=== PATIENT | male | born 1985 | race African-American/Black ===

== ENCOUNTER 2018-04-23 00:18 | Emergency (ER) | payer SELFPAY ==
--- NOTE | 2018-04-23 03:48 | ER ---
Nurse's Notes [facility] Name: Nicole Karimi Age: 32 yrs Sex: Male : 1985 Arrival Date: 04/23/2018 Time: 00:22 Bed 5 Private MD: Diagnosis: Acute abdominal pain;tinea pedis Presentation: 04/23 00:27 Presenting complaint: Patient states: Pt and boyfriend were playing around and now tl3 there is a vibrator in side rectum for about a week, abdominal pain started yesterday, possible fungal issue to left foot between toes. Transition of care: patient was not received from another setting of care. Onset of symptoms was April 14, 2018. Risk Assessment: Do you want to hurt yourself or someone else? Patient reports no desire to harm self or others. Initial Sepsis Screen: Does the patient meet any 2 criteria? No. Patient's initial sepsis screen is negative. Does the patient have a suspected source of infection? No. Patient's initial sepsis screen is negative. Care prior to arrival: None. 00:27 Method Of Arrival: Ambulatory tl3 00:27 Acuity: HATTIE 3 tl3 Triage Assessment: 00:27 General: Appears uncomfortable, Behavior is calm, cooperative, appropriate for age. tl3 Pain: Complains of pain in left foot, abdominal Pain currently is 10 out of 10 on a pain scale. Historical: - Allergies: 00:23 unknown antibiotic; tl3 - Home Meds: 00:34 None [Active]; tl3 - PMHx: 00:23 HIV; syphilis; tl3 - PSHx: 00:23 knee surgery right; tl3 - Immunization history:: Adult Immunizations. - Social history:: Smoking status: Patient uses tobacco products, smokes one pack cigarettes per day. - Ebola Screening: : No symptoms or risks identified at this time. - Family history:: not pertinent. - Hospitalizations: : No recent hospitalization is reported. Screenin:50 Abuse screen: Denies threats or abuse. Nutritional screening: No deficits noted. ea Tuberculosis screening: No symptoms or risk factors identified. Fall Risk None identified. Assessment: 00:50 General: Appears uncomfortable, Behavior is calm, cooperative, appropriate for age. ea Pain: Complains of pain in left foot. Neuro: Level of Consciousness is awake, alert, obeys commands, Oriented to person, place, time, situation. Cardiovascular: Patient's skin is warm and dry. Respiratory: Airway is patent Respiratory effort is even, unlabored, Respiratory pattern is regular, symmetrical. GI: Reports lower abdominal pain, reports sex toy that has been lodged in his rectum for 1 week. Derm: Skin is dry, Skin is pale, Skin temperature is warm. Musculoskeletal: Circulation, motion, and sensation intact. 01:15 Reassessment: Patient and/or family updated on plan of care and expected duration. Pain ea level reassessed. Pt taken to radiology. 01:34 Reassessment: Patient and/or family updated on plan of care and expected duration. Pain ea level reassessed. Patient is alert, oriented x 3, equal unlabored respirations, skin warm/dry/pink. Returned from radiology. 02:17 Reassessment: Patient and/or family updated on plan of care and expected duration. Pain ea level reassessed. Pt taken to CT. 02:38 Reassessment: Returned from CT. ea 03:59 Reassessment: Patient appears in no apparent distress at this time. Patient and/or tl2 family updated on plan of care and expected duration. Pain level reassessed. Patient is alert, oriented x 3, equal unlabored respirations, skin warm/dry/pink. pt verbalized understanding of discharge instructions, need for follow up and prescription usage. Vital Signs: 00:27 BP 153 / 97; Pulse 106; Resp 18; Temp 97.8; Pulse Ox 99% ; Weight 70.31 kg; Height 6 tl3 ft. (182.88 cm); 01:13 BP 140 / 86; Pulse 94; Resp 18; Pulse Ox 98% on R/A; ea 02:56 BP 108 / 73; Pulse 87; Resp 16; Pulse Ox 95% on R/A; ea 03:52 BP 119 / 77; Pulse 95; Resp 18; Pulse Ox 100% on R/A; tl2 00:27 Body Mass Index 21.02 (70.31 kg, 182.88 cm) tl3 ED Course: 00:22 Patient arrived in ED. am2 00:27 Arm band placed on right wrist. tl3 00:30 Triage completed. tl3 00:41 Carlos Ann MD is Attending Physician. wa 00:55 Patient has correct armband on for positive identification. Placed in gown. Bed in low ea position. Call light in reach. 01:15 Kourtney Parrish, RN is Primary Nurse. ea 01:22 Patient moved to radiology via wheelchair. kw 01:35 X-ray completed. Patient tolerated procedure well. kw 01:35 Patient moved back from radiology. kw 01:36 XRAY Abdomen 1 View (KUB) In Process Unspecified. EDMS 01:56 Inserted saline lock: 20 gauge in right forearm, using aseptic technique. tl2 02:[address] via stretcher. eh 02:31 CT completed. Pt tolerated procedure poorly. Patient moved back from CT. eh 02:36 CT Abd/Pelvis - W/Contrast In Process Unspecified. EDMS 03:59 No provider procedures requiring assistance completed. IV discontinued, intact, tl2 bleeding controlled, No redness/swelling at site. Pressure dressing applied. Administered Medications: No medications were administered Outcome: 03:48 Discharge ordered by . elizabeth 03:59 Discharged to home ambulatory. tl2 03:59 Condition: stable 03:59 Discharge instructions given to patient, Instructed on discharge instructions, follow up and referral plans. medication usage, Demonstrated understanding of instructions, follow-up care, medications, Prescriptions given X 1. 04:19 Patient left the ED. tl2 12:51 Instructed on need for possible repeat CT if still felling pain and pressure in rectum, iw pt was notified via telephone of radiologist's recommendation, pt states he is still feeling pain/pressure and will be back to ER, pt states he is in [place] at this time but will be back later Signatures: Dispatcher [employer] EDLA Lupillo Andrade Jennifer Amse, RN Candice Pierce Taylor RN RN tl2 Bethany Pittman am2 Kourtney Parrish, Carlos Archuleta RN, ea, MD MD wa Lowrey, Tammy RN RN tl3
--- NOTE | 2018-04-23 03:48 | EDPHYS ---
Physician Documentation [facility] Name: Nicole Karimi Age: 32 yrs Sex: Male : 1985 Arrival Date: 04/23/2018 Time: 00:22 Bed 5 Private MD: ED Physician Carlos Ann HPI: 04/23 01:22 This 32 yrs old Black Male presents to ER via Ambulatory with complaints of Foreign wa Body, Abdominal Pain, Foot Pain. 01:22 The patient or guardian reports the patient has a suspected foreign body, of the wa rectum. The reported likely foreign body is a sex toy. Onset: The symptoms/episode began/occurred 5 day(s) ago. Current symptoms: denies pain to me on direct query. denies rectal bleeding. Treatment Prior to Arrival: none. The patient has not experienced similar symptoms in the past. The patient has not recently seen a physician. states also has pain between the 4th and 5th toe on the left foot. Historical: - Allergies: 00:23 unknown antibiotic; tl3 - Home Meds: 00:34 None [Active]; tl3 - PMHx: 00:23 HIV; syphilis; tl3 - PSHx: 00:23 knee surgery right; tl3 - Immunization history:: Adult Immunizations. - Social history:: Smoking status: Patient uses tobacco products, smokes one pack cigarettes per day. - Ebola Screening: : No symptoms or risks identified at this time. - Family history:: not pertinent. - Hospitalizations: : No recent hospitalization is reported. ROS: 01:24 Constitutional: Negative for fever, chills, and weight loss, Eyes: Negative for injury, wa pain, redness, and discharge, ENT: Negative for injury, pain, and discharge, Neck: Negative for injury, pain, and swelling, Cardiovascular: Negative for chest pain, palpitations, and edema, Respiratory: Negative for shortness of breath, cough, wheezing, and pleuritic chest pain, Back: Negative for injury and pain, : Negative for injury, bleeding, discharge, and swelling, Neuro: Negative for headache, weakness, numbness, tingling, and seizure, Psych: Negative for depression, anxiety, suicide ideation, homicidal ideation, and hallucinations. 01:24 Abdomen/GI: Positive for rectal FB, Negative for abdominal pain, nausea and vomiting, rectal pain, rectal bleeding. 01:24 MS/extremity: Negative for contusion, deformity. 01:24 Skin: Positive for lesions, pain, b/n L 4th and 5th toe. Exam: 01:25 Constitutional: This is a well developed, well nourished patient who is awake, alert, wa and in no acute distress. Head/Face: Normocephalic, atraumatic. Eyes: Pupils equal round and reactive to light, extra-ocular motions intact. Lids and lashes normal. Conjunctiva and sclera are non-icteric and not injected. Cornea within normal limits. Periorbital areas with no swelling, redness, or edema. ENT: Nares patent. No nasal discharge, no septal abnormalities noted. Tympanic membranes are normal and external auditory canals are clear. Oropharynx with no redness, swelling, or masses, exudates, or evidence of obstruction, uvula midline. Mucous membranes moist. Neck: Trachea midline, no thyromegaly or masses palpated, and no cervical lymphadenopathy. Supple, full range of motion without nuchal rigidity, or vertebral point tenderness. No Meningismus. Chest/axilla: Normal chest wall appearance and motion. Nontender with no deformity. No lesions are appreciated. Cardiovascular: Regular rate and rhythm with a normal S1 and S2. No gallops, murmurs, or rubs. Normal PMI, no JVD. No pulse deficits. Respiratory: Lungs have equal breath sounds bilaterally, clear to auscultation and percussion. No rales, rhonchi or wheezes noted. No increased work of breathing, no retractions or nasal flaring. Abdomen/GI: Soft, non-tender, with normal bowel sounds. No distension or tympany. No guarding or rebound. No evidence of tenderness throughout. Back: No spinal tenderness. No costovertebral tenderness. Full range of motion. MS/ Extremity: Pulses equal, no cyanosis. Neurovascular intact. Full, normal range of motion. Neuro: Awake and alert, GCS 15, oriented to person, place, time, and situation. Cranial nerves II-XII grossly intact. Motor strength 5/5 in all extremities. Sensory grossly intact. Cerebellar exam normal. Normal gait. Psych: Awake, alert, with orientation to person, place and time. Behavior, mood, and affect are within normal limits. 01:25 Skin: lesion(s), noted, and can be described as noted discoloration and ulcer b/n left 4th and 5th toe. consistent with tinea pedis. 01:47 Abdomen/GI: Rectal exam: is unremarkable, no FB felt in rectal vault. il Vital Signs: 00:27 BP 153 / 97; Pulse 106; Resp 18; Temp 97.8; Pulse Ox 99% ; Weight 70.31 kg; Height 6 tl3 ft. (182.88 cm); 01:13 BP 140 / 86; Pulse 94; Resp 18; Pulse Ox 98% on R/A; ea 02:56 BP 108 / 73; Pulse 87; Resp 16; Pulse Ox 95% on R/A; ea 03:52 BP 119 / 77; Pulse 95; Resp 18; Pulse Ox 100% on R/A; tl2 00:27 Body Mass Index 21.02 (70.31 kg, 182.88 cm) tl3 MDM: 00:41 Patient medically screened. il 01:27 ED course: will eval FB. r/o perforation. no peritonitis on exam. will treat for tinea wa pedis with antifungal. 03:46 Data reviewed: vital signs, nurses notes. Test interpretation: by ED physician or il midlevel provider: CT abd/pelvis: no acute process. no radiopaque FB noted. Response to treatment: the patient's symptoms have markedly improved after treatment. 04/23 01:13 Order name: XRAY Abdomen 1 View (KUB) il 04/23 01:48 Order name: CT Abd/Pelvis - W/Contrast il 04/23 04:00 Order name: IV Saline Lock; Complete Time: 04:00 tl2 Administered Medications: No medications were administered Disposition: 04/23/18 03:48 Discharged to Home. Impression: Acute abdominal pain, tinea pedis. - Condition is Stable. - Discharge Instructions: Athlete's Foot, [id number]. - Prescriptions for Clotrimazole 1 % Topical Cream - Apply to affected area 1 application by TOPICAL route every 12 hours; 15 gram. - Work release form, Medication Reconciliation Form, Thank You Letter, Antibiotic Education, Prescription Opioid Use form. - Follow up: Private Physician; When: 2 - 3 days; Reason: Recheck today's complaints. - Problem is new. - Symptoms have improved. - Notes: there is no foreign body noted in the rectum on your x-ray or CAT scan. Digital rectal exam did not show any object in the rectal vault either. follow up with the gastro doctor for endoscopy if you believe there is an object stil in the rectum. use topical cream for athlete's foot. Signatures: Dispatcher [employer] EDLigia Hendrickson, RN RN tl2 Carlos Ann MD MD wa Lowrey, Tammy RN RN tl3 Corrections: (The following items were deleted from the chart) 04:19 03:48 04/23/2018 03:48 Discharged to Home. Impression: Acute abdominal pain; tinea tl2 pedis. Condition is Stable. Forms are Medication Reconciliation Form, Thank You Letter, Antibiotic Education, Prescription Opioid Use. Follow up: Private Physician; When: 2 - 3 days; Reason: Recheck today's complaints. Problem is new. Symptoms have improved. elizabeth
--- NOTE | 2018-04-23 12:12 | RAD REPORT ---
EXAM DESCRIPTION: RAD - Abdomen 1 View (KUB) - 04/23/2018 1:36 am CLINICAL HISTORY: Abdomen pain. FINDINGS: Low-density cylindrical structure is present within the rectum on the lateral view. It is uncertain whether this represents a foreign body or simply air within the rectum. Moderate amount stool is present within the colon.
--- NOTE | 2018-04-23 12:25 | RAD REPORT ---
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 TECHNIQUE: Computed axial tomography of the abdomen pelvis was obtained. 100 cc Isovue-300 was admin istered intravenously. Oral contrast was not requested which limits evaluation of bowel. A preliminary report generated by virtual radiologic and review prior to dictation All CT scans are performed using dose optimization technique as appropriate and may include automated exposure control or mA/KV adjustment according to patient size. FINDINGS: The liver, spleen, pancreas, adrenal and kidneys appear unremarkable. There is no evidence of diverticulitis. A 6.8 x 4.2 centimeter cylindrical low-density structure is p resent within the rectum. It has the same density as air but has a somewhat unusual appearance. Pneum operitoneum is not seen. Free air is not noted IMPRESSION: 6.8 x 4.2 centimeter cylindrical low-density structure within the rectum. It probably re presents air. However, it does have an unusual appearance so the possibility of foreign body exists. A followup CT pelvis could be obtained. If the structure looks identical to the earlier exam then it would likely then represent a foreign body The examination was discussed Dejuan Gomes in the emergency room at 12:15 p.m. on April 23, 2018
== END 2018-04-23 04:19 | disposition home or self-care (01) ==
LOC: ER 00:18
DX: B35.3 Tinea pedis (principal); R10.9 Unspecified abdominal pain; Z21 Asymptomatic human immunodeficiency virus [HIV] infection status; F17.210 Nicotine dependence, cigarettes, uncomplicated
CPT/HCPCS: 74018; 74177; 99284; Q9967

== ENCOUNTER 2018-05-13 15:21 | Emergency (ER) | payer SELFPAY ==
[2018-05-13] MEDS ORDERED: NA CHLORIDE 0.9% 250 ML ONE (16:05)
[2018-05-13] MEDS ORDERED: PIPER/TAZO/NS 3.375gm 3.375 GM/100 ML BAG ONE (16:06)
[2018-05-13] MEDS ORDERED: VANCOMYCIN 1 GM/250 ML BAG ONE (16:06)
[2018-05-13 16:14] LABS: Absolute Lymphocytes (CBC) 2.1 K/uL (0.7-4.9); Absolute Monocytes 0.5 K/uL (0.1-1.3); Absolute Neutrophil 3.4 K/uL (1.8-8.0); Basophils % 1.1 % (0-1.3); Eosinophils % 2.2 % (0-4.4); Hematocrit 41.2 % (39.6-49.0); Lymphocytes % 34.1 % (15.3-44.8); MPV 7.8 fL (7.6-11.3); Monocytes % 8.6 % (3.3-12.3); RBC Red Blood Cell Count 4.83 M/uL (4.33-5.43)
[2018-05-13] MEDS ORDERED: HYDROCODONE/APAP 7.5/325 MG TAB ONE (16:19)
--- NOTE | 2018-05-13 16:41 | RAD REPORT ---
EXAM DESCRIPTION: RAD - Foot Left 3 View - 05/13/2018 4:25 pm CLINICAL HISTORY: Foot wound, possible osteomyelitis, foot pain COMPARISON: None. FINDINGS: No fracture, dislocation or periosteal reaction. No acute or destructive bone process. No radiographic evidence for osteomyelitis at this time. No air or foreign body in the soft tissues. Soft tissues are prominent around the second- fourth MTP joints. IMPRESSION: No bone destruction or acute bone finding. Soft tissue swelling as detailed with no air or foreign body.
[2018-05-13 16:42] LABS: ALT/SGPT 23 U/L (12-78); AST/SGOT 21 U/L (15-37); Albumin 3.4 g/dL (3.4-5.0); Alkaline Phosphatase 118 U/L (45-117); BUN Blood Urea Nitrogen 15 mg/dL (7-18); Bicarbonate 30 mmol/L (21-32); Bilirubin Direct < 0.1 mg/dL (0-0.2); Bilirubin Total 0.2 mg/dL (0.2-1.0); Glucose Level 90 mg/dL (74-106); Potassium 3.1 mmol/L (3.5-5.1); Protein, Total 8.9 g/dL (6.4-8.2); Sodium Level 143 mmol/L (136-145)
[2018-05-13] MEDS ORDERED: POTASSIUM CL SA 10 MEQ TAB PO ONE (17:29)
--- NOTE | 2018-05-13 19:21 | EDPHYS ---
Physician Documentation [facility] Name: Nicole Karimi Age: 32 yrs Sex: Male : 1985 Arrival Date: 05/13/2018 Time: 15:23 Bed 24 Private MD: ED Physician Thompson Han HPI: 05/13 16:02 This 32 yrs old Black Male presents to ER via Wheelchair with complaints of Foot jr8 Infection/Swelling. 16:02 The patient presents with pain, swelling, tenderness. The complaints affect the left jr8 foot. Context: The problem was sustained at an unknown location, resulted from an unknown cause. Onset: The symptoms/episode began/occurred Onset: The symptoms/episode began/occurred 2 week(s) ago, and became worse and became persistent. 16:02 Modifying factors: The symptoms are alleviated by nothing, the symptoms are aggravated jr8 by weight bearing, movement, wearing shoes. Associated signs and symptoms: The patient has no apparent associated signs or symptoms. Severity of symptoms: At their worst the symptoms were moderate, in the emergency department the symptoms are unchanged. The patient has not experienced similar symptoms in the past. Patient evaluated about 2 weeks ago and diagnosed with tenia pedis. Came back today because he is now having increase in pain, redness, swelling, tenderness, and noticed discharge between 3rd and 4th toes . Historical: - Allergies: 15:38 NKDA; ph 16:16 unknown antibiotic; tw2 - Home Meds: 15:38 None [Active]; ph - PMHx: 15:38 HIV; syphilis; ph - Immunization history:: Adult Immunizations unknown. - Social history:: Smoking status: Patient uses tobacco products, smokes one-half pack cigarettes per day. - Ebola Screening: : Patient denies travel to an Ebola-affected area in the 21 days before illness onset. ROS: 16:02 Eyes: Negative for injury, pain, redness, and discharge, ENT: Negative for injury, jr8 pain, and discharge, Neck: Negative for injury, pain, and swelling, Cardiovascular: Negative for chest pain, palpitations, and edema, Respiratory: Negative for shortness of breath, cough, wheezing, and pleuritic chest pain, Abdomen/GI: Negative for abdominal pain, nausea, vomiting, diarrhea, and constipation, Back: Negative for injury and pain, MS/Extremity: Negative for injury and deformity, Neuro: Negative for headache, weakness, numbness, tingling, and seizure. 16:02 Skin: Positive for cellulitis, erythema, swelling, of the left foot. Exam: 16:02 Eyes: Pupils equal round and reactive to light, extra-ocular motions intact. Lids and jr8 lashes normal. Conjunctiva and sclera are non-icteric and not injected. Cornea within normal limits. Periorbital areas with no swelling, redness, or edema. ENT: Nares patent. No nasal discharge, no septal abnormalities noted. Tympanic membranes are normal and external auditory canals are clear. Oropharynx with no redness, swelling, or masses, exudates, or evidence of obstruction, uvula midline. Mucous membranes moist. Neck: Trachea midline, no thyromegaly or masses palpated, and no cervical lymphadenopathy. Supple, full range of motion without nuchal rigidity, or vertebral point tenderness. No Meningismus. Cardiovascular: Regular rate and rhythm with a normal S1 and S2. No gallops, murmurs, or rubs. Normal PMI, no JVD. No pulse deficits. Respiratory: Lungs have equal breath sounds bilaterally, clear to auscultation and percussion. No rales, rhonchi or wheezes noted. No increased work of breathing, no retractions or nasal flaring. Abdomen/GI: Soft, non-tender, with normal bowel sounds. No distension or tympany. No guarding or rebound. No evidence of tenderness throughout. Back: No spinal tenderness. No costovertebral tenderness. Full range of motion. MS/ Extremity: Pulses equal, no cyanosis. Neurovascular intact. Full, normal range of motion. Neuro: Awake and alert, GCS 15, oriented to person, place, time, and situation. Cranial nerves II-XII grossly intact. Motor strength 5/5 in all extremities. Sensory grossly intact. Cerebellar exam normal. Normal gait. 16:02 Skin: Patient has moderate amount of swelling to left foot extending from toes to ankle with erythema. Tender to touch. Small ulceration with purulent discharge noted between the 3rd and 4th digits . Vital Signs: 15:38 BP 142 / 97; Pulse 112; Resp 18; Temp 99.1(TE); Pulse Ox 99% on R/A; Weight 72.57 kg; ph Height 6 ft. 0 in. (182.88 cm); Pain 9/10; 16:30 BP 139 / 84; Pulse 102; Resp 17; Pulse Ox 100% on R/A; tw2 17:24 BP 130 / 92; Pulse 101; Resp 17; Pulse Ox 97% on R/A; tw2 18:00 BP 124 / 67; Pulse 104; Resp 18 S; Pulse Ox 98% on R/A; rv 19:09 BP 130 / 93; Pulse 93; Resp 17; Pulse Ox 100% on R/A; tw2 19:32 BP 130 / 93; Pulse 100; Resp 17 S; Pulse Ox 100% on R/A; jd3 15:38 Body Mass Index 21.70 (72.57 kg, 182.88 cm) ph MDM: 15:26 Patient medically screened. jr8 17:35 Data reviewed: vital signs, nurses notes, lab test result(s), radiologic studies, plain jr8 films. Data interpreted: Pulse oximetry: on room air is 97 %. Interpretation: normal. Counseling: I had a detailed discussion with the patient and/or guardian regarding: the historical points, exam findings, and any diagnostic results supporting the discharge/admit diagnosis, lab results, radiology results, the need for outpatient follow up, a general surgeon, an infectious disease specialist. ED course: Discussed with patient that his labs and images are good. That being said he still has low grade fever and mild tachycardia combined with moderate cellulitis. History of HIV. Because of this hospital admission is advised for IV antibiotics and to have surgery look at his foot. Patient stated that he cant do to previous family arrangements. Patient understands the severity of this condition and would come back tomorrow for admission. 05/13 15:48 Order name: CBC with Diff; Complete Time: 16:27 05/13 15:48 Order name: Basic Metabolic Panel; Complete Time: 17:09 8 05/13 15:48 Order name: LFT's; Complete Time: 17:09 8 05/13 15:48 Order name: Blood Culture Adult (2) 05/13 15:48 Order name: Procalcitonin; Complete Time: 17:09 8 05/13 15:48 Order name: Wound Culture 8 05/13 15:48 Order name: IV; Complete Time: 16:12 05/13 15:48 Order name: XRAY Foot LEFT 3 View; Complete Time: 17:09 jr8 Administered Medications: 16:08 Drug: Zosyn 3.375 grams Route: IVPB; Infused Over: 60 mins; Site: right forearm; rv 18:03 Follow up: IV Status: Completed infusion rv 16:12 Drug: [place] (7.5 mg-325 mg) 1 tabs Route: PO; tw2 19:33 Follow up: Response: No adverse reaction jd3 17:21 Drug: Potassium Chloride 40 mEq Route: PO; tw2 19:34 Follow up: Response: No adverse reaction jd3 18:03 Drug: vancoMYCIN 1 grams Route: IVPB; Infused Over: 2 hrs; Site: right forearm; rv 19:33 Follow up: Response: No adverse reaction; IV Status: Completed infusion jd3 Disposition: 05/14 06:43 Co-signature as Attending Physician, Thompson Han MD I agree with the assessment and kdr plan of care. Disposition: 05/13/18 19:20 Discharged to Home. Impression: Cellulitis of left lower limb. - Condition is Stable. - Discharge Instructions: Cellulitis, Adult. - Prescriptions for Clindamycin HCl 300 mg Oral Capsule - take 1 capsule by ORAL route every 6 hours for 10 days; 40 capsule. Bactrim DS 800- 160 mg Oral Tablet - take 1 tablet by ORAL route every 12 hours for 10 days; 20 tablet. Ibuprofen 800 mg Oral Tablet - take 1 tablet by ORAL route every 12 hours As needed take with food; 20 tablet. - Medication Reconciliation Form, Thank You Letter, Antibiotic Education, Prescription Opioid Use form. - Follow up: Darrick Glez MD; When: 1 - 2 days; Reason: Wound Recheck, Recheck today's complaints, Continuance of care, Re-evaluation by your physician. - Problem is new. - Symptoms have improved. Signatures: Dispatcher [employer] EDMS Thompson Han MD MD kdr Roszak, Josh, PA PA jr8 Lyn Washburn RN RN ph Cely Gutierrez RN RN tw2 Herberth Ruiz, NATACHA RN jd3 Simeon Brown RN RN rv Corrections: (The following items were deleted from the chart) 05/13 16:04 16:02 Onset: The symptoms/episode began/occurred 8 19:34 19:20 05/13/2018 19:20 Discharged to Home. Impression: Cellulitis of left lower limb. jd3 Condition is Stable. Forms are Medication Reconciliation Form, Thank You Letter, Antibiotic Education, Prescription Opioid Use. Follow up: Darrick Glez; When: 1 - 2 days; Reason: Wound Recheck, Recheck today's complaints, Continuance of care, Re-evaluation by your physician. Problem is new. Symptoms have improved. jr8
--- NOTE | 2018-05-13 19:21 | ER ---
Nurse's Notes [facility] Name: Nicole Karimi Age: 32 yrs Sex: Male : 1985 Arrival Date: 05/13/2018 Time: 15:23 Bed 24 Private MD: Diagnosis: Cellulitis of left lower limb Presentation: 05/13 15:35 Presenting complaint: Patient states: L foot pain and swelling, wound(s) in between ph toes, states, " I was seen here a few weeks ago for the same thing but I couldn't afford my antibiotics." Pt reports that swelling became worse in the past 2 days, also reports drainage from between toes, denies fever, N/V/D. Transition of care: patient was not received from another setting of care. Onset of symptoms was May 13, 2018. Risk Assessment: Do you want to hurt yourself or someone else? Patient reports no desire to harm self or others. Initial Sepsis Screen: Does the patient meet any 2 criteria? No. Patient's initial sepsis screen is negative. Does the patient have a suspected source of infection? Yes: Skin breakdown/wound. Care prior to arrival: None. 15:35 Method Of Arrival: Wheelchair ph 15:35 Acuity: HATTIE 3 ph Historical: - Allergies: 15:38 NKDA; ph 16:16 unknown antibiotic; tw2 - Home Meds: 15:38 None [Active]; ph - PMHx: 15:38 HIV; syphilis; ph - Immunization history:: Adult Immunizations unknown. - Social history:: Smoking status: Patient uses tobacco products, smokes one-half pack cigarettes per day. - Ebola Screening: : Patient denies travel to an Ebola-affected area in the 21 days before illness onset. Screenin:12 Abuse screen: Denies threats or abuse. Nutritional screening: No deficits noted. tw2 Tuberculosis screening: No symptoms or risk factors identified. Fall Risk None identified. Assessment: 15:30 Reassessment: Patient appears in no apparent distress at this time. No changes from tw2 previously documented assessment. Patient and/or family updated on plan of care and expected duration. Pain level reassessed. Patient is alert, oriented x 3, equal unlabored respirations, skin warm/dry/pink. 16:13 General: Appears in no apparent distress. Behavior is calm, cooperative, appropriate tw2 for age. Pain: Complains of pain in left foot. Neuro: Level of Consciousness is awake, alert, obeys commands, Oriented to person, place, time, situation. Cardiovascular: Denies chest pain, shortness of breath, Heart tones S1 S2 Patient's skin is warm and dry. Respiratory: Airway is patent Respiratory effort is even, unlabored, Respiratory pattern is regular, symmetrical, Breath sounds are clear bilaterally. GI: No signs and/or symptoms were reported involving the gastrointestinal system. Abdomen is flat, Bowel sounds present X 4 quads. : No signs and/or symptoms were reported regarding the genitourinary system. EENT: No signs and/or symptoms were reported regarding the EENT system. Derm: Wound noted left third toe and left fourth toe. Derm: swelling noted to left foot. Musculoskeletal: Range of motion: intact in all extremities. 17:24 Reassessment: Patient appears in no apparent distress at this time. No changes from tw2 previously documented assessment. Patient and/or family updated on plan of care and expected duration. Pain level reassessed. Patient is alert, oriented x 3, equal unlabored respirations, skin warm/dry/pink. 18:20 Reassessment: Patient appears in no apparent distress at this time. No changes from tw2 previously documented assessment. Patient and/or family updated on plan of care and expected duration. Pain level reassessed. Patient is alert, oriented x 3, equal unlabored respirations, skin warm/dry/pink. 19:32 Reassessment: Patient appears in no apparent distress at this time. Patient and/or jd3 family updated on plan of care and expected duration. Pain level reassessed. Patient is alert, oriented x 3, equal unlabored respirations, skin warm/dry/pink. Patient states feeling better. Vital Signs: 15:38 BP 142 / 97; Pulse 112; Resp 18; Temp 99.1(TE); Pulse Ox 99% on R/A; Weight 72.57 kg; ph Height 6 ft. 0 in. (182.88 cm); Pain 9/10; 16:30 BP 139 / 84; Pulse 102; Resp 17; Pulse Ox 100% on R/A; tw2 17:24 BP 130 / 92; Pulse 101; Resp 17; Pulse Ox 97% on R/A; tw2 18:00 BP 124 / 67; Pulse 104; Resp 18 S; Pulse Ox 98% on R/A; rv 19:09 BP 130 / 93; Pulse 93; Resp 17; Pulse Ox 100% on R/A; tw2 19:32 BP 130 / 93; Pulse 100; Resp 17 S; Pulse Ox 100% on R/A; jd3 15:38 Body Mass Index 21.70 (72.57 kg, 182.88 cm) ph ED Course: 15:23 Patient arrived in ED. as 15:26 Dejuan Gomes PA is PHCP. jr8 15:26 Thompson Han MD is Attending Physician. jr8 15:26 Bed in low position. Call light in reach. Adult w/ patient. air sampling and monitoring on. Pulse tw2 ox on. NIBP on. 15:37 Triage completed. ph 15:38 Arm band placed on Patient placed in an exam room, on a stretcher. ph 15:43 Cely Gutierrez RN is Primary Nurse. tw2 15:50 Inserted saline lock: 22 gauge in right forearm, using aseptic technique. Blood tw2 collected. 16:29 XRAY Foot LEFT 3 View In Process Unspecified. EDMS 19:09 Report given to NATACHA Vásquez. tw2 19:19 Darrick Glez MD is Referral Physician. jr8 19:32 No provider procedures requiring assistance completed. IV discontinued, intact, jd3 bleeding controlled, No redness/swelling at site. Pressure dressing applied. Administered Medications: 16:08 Drug: Zosyn 3.375 grams Route: IVPB; Infused Over: 60 mins; Site: right forearm; rv 18:03 Follow up: IV Status: Completed infusion rv 16:12 Drug: [place] (7.5 mg-325 mg) 1 tabs Route: PO; tw2 19:33 Follow up: Response: No adverse reaction jd3 17:21 Drug: Potassium Chloride 40 mEq Route: PO; tw2 19:34 Follow up: Response: No adverse reaction jd3 18:03 Drug: vancoMYCIN 1 grams Route: IVPB; Infused Over: 2 hrs; Site: right forearm; rv 19:33 Follow up: Response: No adverse reaction; IV Status: Completed infusion jd3 Outcome: 19:20 Discharge ordered by . jr8 19:33 Discharged to home ambulatory, with family. jd3 19:33 Condition: stable 19:33 Discharge instructions given to patient, family, Instructed on discharge instructions, follow up and referral plans. medication usage, Demonstrated understanding of instructions, follow-up care, medications, Prescriptions given X 3. 19:34 Patient left the ED. jd3 Addendum: 05/17/2018 10:54 Addendum: Culture Results: Positive wound culture. Phone call Attempt #1 spoke with s s patient who reports that he is much better and is following up with PCP tomorrow. Signatures: Dispatcher [employer] Louise Starr Shelby, RN RN Dejuan Gomes PA PA jr8 Lyn Washburn RN RN Gutierrez, NATACHA Ta RN tw2 Herberth Ruiz RN RN jd3 Simeon Brown RN RN rv Corrections: (The following items were deleted from the chart) 10:57 10:54 Addendum: Culture Results: Positive wound culture. ss ss
== END 2018-05-13 19:34 | disposition home or self-care (01) ==
LOC: ER 15:21
DX: L03.116 Cellulitis of left lower limb (principal); F17.210 Nicotine dependence, cigarettes, uncomplicated
CPT/HCPCS: 36415; 80048; 80076; 84145; 85025; 87040; 87070; 87077; 87186; 87205; 96365; 96366; 96367; 99284; J2543; J3370

== ENCOUNTER 2018-06-21 01:50 | Emergency (ER) | payer SELFPAY ==
--- OUTSIDE RECORDS SUMMARY | 2018-06-21 01:52 | XMS REPORT ---
:1985 [facility] Address [address] [place] [address] Dr. Frias [address] [place] [id number] Care Team Providers Name Role Phone Unavailable Unavailable Unavailable Problems This patient has no known problems. Allergies, Adverse Reactions, Alerts This patient has no known allergies or adverse reactions. Medications This patient has no known medications.
--- NOTE | 2018-06-21 03:13 | EDPHYS ---
Physician Documentation [facility] Name: Nicole Karimi Age: 32 yrs Sex: Male : 1985 Arrival Date: 06/21/2018 Time: 01:55 Bed 20 Private MD: ED Physician Jin Cruz HPI: 06/21 03:38 This 32 yrs old Black Male presents to ER via Ambulatory with complaints of Redness of tw4 Eye, Drainage From Eye, infected foot. 03:38 The patient presents with a rash, raised. The complaints affect the dorsum of left tw4 foot. Context: The problem was sustained at home. Onset: The symptoms/episode began/occurred 3 month(s) ago. Modifying factors: The symptoms are alleviated by nothing. the symptoms are aggravated by nothing. Associated signs and symptoms: The patient has no apparent associated signs or symptoms. Severity of symptoms: At their worst the symptoms were moderate, in the emergency department the symptoms are unchanged. The patient has not experienced similar symptoms in the past. Historical: - Allergies: 02:24 NKDA; bb - Home Meds: 02:24 None [Active]; bb - PMHx: 02:24 HIV; syphilis; bb - PSHx: 02:24 None; bb - Immunization history:: Adult Immunizations unknown. - Social history:: Smoking status: Patient uses tobacco products, smokes one pack cigarettes per day. Patient/guardian denies using alcohol, street drugs. - Ebola Screening: : No symptoms or risks identified at this time. ROS: 03:38 Constitutional: Negative for fever, chills, and weight loss, Eyes: Negative for injury, tw4 pain, redness, and discharge, Cardiovascular: Negative for chest pain, palpitations, and edema, Respiratory: Negative for shortness of breath, cough, wheezing, and pleuritic chest pain, Abdomen/GI: Negative for abdominal pain, nausea, vomiting, diarrhea, and constipation, Back: Negative for injury and pain, MS/Extremity: Negative for injury and deformity, Skin: Negative for injury, rash, and discoloration. Exam: 03:38 Constitutional: This is a well developed, well nourished patient who is awake, alert, tw4 and in no acute distress. Head/Face: Normocephalic, atraumatic. 03:38 Cardiovascular: Regular rate and rhythm with a normal S1 and S2. No gallops, murmurs, or rubs. Normal PMI, no JVD. No pulse deficits. Respiratory: Lungs have equal breath sounds bilaterally, clear to auscultation and percussion. No rales, rhonchi or wheezes noted. No increased work of breathing, no retractions or nasal flaring. Abdomen/GI: Soft, non-tender, with normal bowel sounds. No distension or tympany. No guarding or rebound. No evidence of tenderness throughout. Back: No spinal tenderness. No costovertebral tenderness. Full range of motion. 03:38 Eyes: Conjunctiva: injected, bilaterally. 03:38 Musculoskeletal/extremity: Extremities: noted in the ball of right foot: Vital Signs: 02:24 BP 138 / 96; Pulse 91; Resp 16 S; Temp 100.1(O); Pulse Ox 97% on R/A; Weight 74.84 kg bb (R); Height 6 ft. 0 in. (182.88 cm) (R); Pain 10/10; 02:24 Body Mass Index 22.38 (74.84 kg, 182.88 cm) bb MDM: 02:36 Patient medically screened. tw4 03:10 Data reviewed: vital signs, nurses notes. Medical screen evaluation completed. [facility] emergency medical condition absent. 03:38 Counseling: I had a detailed discussion with the patient and/or guardian regarding: the tw4 historical points, exam findings, and any diagnostic results supporting the discharge/admit diagnosis. Special discussion: I discussed with the patient/guardian in detail that at this point there is no indication for admission to the hospital. It is understood, however, that if the symptoms persist or worsen the patient needs to return immediately for re-evaluation. Administered Medications: No medications were administered Disposition: 03:10 [facility]. 4 Disposition: 06/21/18 03:12 Discharged to Home. Impression: Encounter for general adult medical examination without abnormal findings. - Condition is Stable. - Discharge Instructions: Medical Screening Exam. - Medication Reconciliation Form, Thank You Letter, Antibiotic Education, Prescription Opioid Use form. - Follow up: Private Physician; When: Upon discharge from the Emergency Department; Reason: If symptoms return, Recheck today's complaints, Continuance of care. - Problem is new. - Symptoms are unchanged. Signatures: Pickering, EvelineNATACHA dickson RN, Taylor, RN RN tl2 Jin Cruz MD MD tw4 Corrections: (The following items were deleted from the chart) 03:14 03:12 06/21/2018 03:12 Discharged to Home. Impression: Encounter for general adult bb medical examination without abnormal findings. Condition is Stable. Forms are Medication Reconciliation Form, Thank You Letter, Antibiotic Education, Prescription Opioid Use. Follow up: Private Physician; When: Upon discharge from the Emergency Department; Reason: If symptoms return, Recheck today's complaints, Continuance of care. Problem is new. Symptoms are unchanged. tw4 03:43 03:38 Constitutional: This is a well developed, well nourished patient who is awake, tw4 alert, and in no acute distress. Head/Face: Normocephalic, atraumatic. Cardiovascular: Regular rate and rhythm with a normal S1 and S2. No gallops, murmurs, or rubs. Normal PMI, no JVD. No pulse deficits. Respiratory: Lungs have equal breath sounds bilaterally, clear to auscultation and percussion. No rales, rhonchi or wheezes noted. No increased work of breathing, no retractions or nasal flaring. Abdomen/GI: Soft, non-tender, with normal bowel sounds. No distension or tympany. No guarding or rebound. No evidence of tenderness throughout. Skin: Warm, dry with normal turgor. Normal color with no rashes, no lesions, and no evidence of cellulitis. MS/ Extremity: Pulses equal, no cyanosis. Neurovascular intact. Full, normal range of motion. Neuro: Awake and alert, GCS 15, oriented to person, place, time, and situation. Cranial nerves II-XII grossly intact. Motor strength 5/5 in all extremities. Sensory grossly intact. Cerebellar exam normal. Normal gait. tw4
--- NOTE | 2018-06-21 03:13 | ER ---
Nurse's Notes [facility] Name: Nicole Karimi Age: 32 yrs Sex: Male : 1985 Arrival Date: 06/21/2018 Time: 01:55 Bed 20 Private MD: Diagnosis: Encounter for general adult medical examination without abnormal findings Presentation: 06/21 02:20 Presenting complaint: Patient states: he has redness and discharge from both his eyes bb for a week or two and has an infection on both his feet, pt also states he was diagnosed with syphilis a year ago and did not complete his treatment. Transition of care: patient was not received from another setting of care. Onset of symptoms is unknown. Risk Assessment: Do you want to hurt yourself or someone else? Patient reports no desire to harm self or others. Initial Sepsis Screen: Does the patient meet any 2 criteria? No. Patient's initial sepsis screen is negative. Does the patient have a suspected source of infection? No. Patient's initial sepsis screen is negative. Care prior to arrival: None. 02:20 Method Of Arrival: Ambulatory bb 02:20 Acuity: HATTIE 5 bb Triage Assessment: 02:24 General: Appears in no apparent distress. slender, Behavior is calm, cooperative. Pain: bb Complains of pain in right eye and left eye Pain currently is 10 out of 10 on a pain scale. Neuro: Level of Consciousness is awake, alert, obeys commands, Oriented to person, place, time, situation. Cardiovascular: No deficits noted. Respiratory: Respiratory effort is even, unlabored, Respiratory pattern is regular. GI: No deficits noted. No signs and/or symptoms were reported involving the gastrointestinal system. : No deficits noted. No signs and/or symptoms were reported regarding the genitourinary system. Derm: skin between toes on bilateral feet greyish looking. Musculoskeletal: Circulation, motion, and sensation intact. Historical: - Allergies: 02:24 NKDA; bb - Home Meds: 02:24 None [Active]; bb - PMHx: 02:24 HIV; syphilis; bb - PSHx: 02:24 None; bb - Immunization history:: Adult Immunizations unknown. - Social history:: Smoking status: Patient uses tobacco products, smokes one pack cigarettes per day. Patient/guardian denies using alcohol, street drugs. - Ebola Screening: : No symptoms or risks identified at this time. Screenin:26 Abuse screen: Denies threats or abuse. Nutritional screening: No deficits noted. bb Tuberculosis screening: No symptoms or risk factors identified. Fall Risk None identified. Assessment: 02:26 Reassessment: No changes from previously documented assessment. see triage assessment. bb Vital Signs: 02:24 BP 138 / 96; Pulse 91; Resp 16 S; Temp 100.1(O); Pulse Ox 97% on R/A; Weight 74.84 kg bb (R); Height 6 ft. 0 in. (182.88 cm) (R); Pain 10/10; 02:24 Body Mass Index 22.38 (74.84 kg, 182.88 cm) bb ED Course: 01:55 Patient arrived in ED. es 02:23 Triage completed. bb 02:24 Arm band placed on Patient placed in an exam room, on a stretcher, on pulse oximetry. bb 02:26 Patient has correct armband on for positive identification. Bed in low position. Call bb light in reach. Side rails up X 1. Pulse ox on. NIBP on. 02:36 Jin Cruz MD is Attending Physician. tw4 02:58 Ligia Sánchez, RN is Primary Nurse. tl2 02:59 No provider procedures requiring assistance completed. Patient did not have IV access tl2 during this emergency room visit. Administered Medications: No medications were administered Outcome: 02:58 Medical screen evaluation completed per provider. Patient declined treatment. tl2 02:58 Condition: stable 02:58 Discharge instructions given to patient, Instructed on follow up and referral plans. 03:12 Discharge ordered by . tw4 03:14 Patient left the ED. bb Signatures: Linda Frank Brenda RN RN bb Ligia Sánchez, NATACHA RN tl2 Jin Cruz MD MD tw4
== END 2018-06-21 03:14 | disposition home or self-care (01) ==
LOC: ER 01:50
DX: Z00.00 Encounter for general adult medical examination without abnormal findings (principal); F17.210 Nicotine dependence, cigarettes, uncomplicated
CPT/HCPCS: 99283

== ENCOUNTER 2020-08-03 00:06 | Emergency (ER) | payer SELFPAY ==
[2020-08-03 00:36] LABS: Absolute Lymphocytes (CBC) 2.2 K/uL (0.7-4.9); Basophils % 1.1 % (0-1.3); Hematocrit 38.8 % (39.6-49.0); Lymphocytes % 46.6 % (15.3-44.8); MPV 7.6 fL (7.6-11.3); RBC Red Blood Cell Count 4.57 M/uL (4.33-5.43)
[2020-08-03] MEDS ORDERED: KETOROLAC 30 MG/ML INJ ONE (00:44)
[2020-08-03 00:47] LABS: BUN Blood Urea Nitrogen 16 mg/dL (7-18); Bicarbonate 26 mmol/L (21-32); Glucose Level 88 mg/dL (74-106); Potassium 3.5 mmol/L (3.5-5.1); Sodium Level 140 mmol/L (136-145)
[2020-08-03] MEDS ORDERED: CEFTRIAXONE/SWI 1gm 1 GM/10 ML SYR ONE (01:33)
--- NOTE | 2020-08-03 03:40 | ER ---
[facility] Name: Nicole Karimi Age: 34 yrs Sex: Male : 1985 Arrival Date: 08/03/2020 Time: 00:10 Bed 5 Private MD: Diagnosis: SCROTAL MASS Presentation: 08/03 00:10 Chief complaint: EMS states: pain and inflammation of testicles, started two days ago. rv Coronavirus screen: At this time, unable to obtain information related to travel outside the [place] Ebola Screen: No symptoms or risks identified at this time. 00:10 Method Of Arrival: EMS: [facility] rv 00:15 Initial Sepsis Screen: Does the patient meet any 2 criteria? No. Patient's initial rv sepsis screen is negative. Does the patient have a suspected source of infection? No. Patient's initial sepsis screen is negative. Risk Assessment: Do you want to hurt yourself or someone else? Patient reports no desire to harm self or others. Onset of symptoms was August 01, 2020. 00:15 Acuity: HATTIE 3 rv Historical: - Allergies: 00:14 NKDA; rv - PMHx: 00:14 HIV; syphilis; rv - PSHx: 00:14 None; rv - Immunization history:: Adult Immunizations unknown. - Social history:: Smoking status: unknown. Screenin:15 Abuse screen: Denies threats or abuse. Denies injuries from another. Nutritional rv screening: No deficits noted. Tuberculosis screening: No symptoms or risk factors identified. Fall Risk None identified. Assessment: 00:30 General: Appears in no apparent distress. comfortable, Behavior is calm, cooperative, rr5 appropriate for age, escorted by PD. 00:30 Pain: Complains of pain in left testicle. Neuro: Level of Consciousness is awake, rr5 alert, obeys commands, Oriented to person, place, time. Cardiovascular: Capillary refill < 3 seconds Patient's skin is warm and dry. Respiratory: Airway is patent Respiratory effort is even, unlabored, Respiratory pattern is regular, symmetrical. GI: No signs and/or symptoms were reported involving the gastrointestinal system. : Reports pain in left testicle. EENT: No signs and/or symptoms were reported regarding the EENT system. Derm: Skin is pink, warm \T\ dry. Musculoskeletal: Capillary refill < 3 seconds. 01:40 Reassessment: Patient appears in no apparent distress at this time. Patient is alert, rr5 oriented x 3, equal unlabored respirations, skin warm/dry/pink. ultrasound at bedside. Vital Signs: 00:15 BP 154 / 99; Pulse 64; Resp 16; Temp 97.4; Pulse Ox 98% ; Weight 79.38 kg; Height 6 ft. rv 2 in. (187.96 cm); 01:30 BP 141 / 75; Pulse 60; Resp 19; Pulse Ox 98% ; rr5 03:44 BP 136 / 71; Pulse 61; Resp 15; Pulse Ox 99% on R/A; rv 00:15 Body Mass Index 22.47 (79.38 kg, 187.96 cm) rv ED Course: 00:10 Patient arrived in ED. rv 00:13 Russell Lemus PA is PHCP. cp 00:13 Jin Cruz MD is Attending Physician. cp 00:15 Triage completed. rv 00:15 Arm band placed on right wrist. Patient placed in the treatment room, on a stretcher, rv Patient notified of wait time. 00:26 Initial lab(s) drawn, by me, sent to lab. Inserted saline lock: 20 gauge in right rv antecubital area, using aseptic technique. Blood collected. 00:30 Patient has correct armband on for positive identification. Bed in low position. rr5 00:37 Simeon Brown, NATACHA is Primary Nurse. rv 01:45 Ultrasound completed. Patient tolerated well. lc3 01:47 US Scrotum Testicles In Process Unspecified. EDMS 03:44 No provider procedures requiring assistance completed. IV discontinued, intact, rv bleeding controlled, No redness/swelling at site. Pressure dressing applied. Administered Medications: 00:35 Drug: TORadol - (ketorolac) 15 mg Route: IVP; Site: right antecubital; rv 03:44 Follow up: Response: No adverse reaction rv 01:16 Drug: Rocephin (cefTRIAXone) 1 grams Route: IV; Rate: calculated rate; Site: right rv antecubital; 03:44 Follow up: Response: No adverse reaction rv Outcome: 03:39 Discharge ordered by . tw4 03:45 Discharged to Law Enforcement rv 03:45 Condition: good 03:45 Discharge instructions given to patient, Instructed on discharge instructions, follow up and referral plans. medication usage, Demonstrated understanding of instructions, follow-up care, medications, Prescriptions given X 1. 03:45 Patient left the ED. rv Signatures: Dispatcher [employer] EDMS Russell Lemus PA PA cp Cunningham, Laulita lc3 Jin Cruz MD MD tw4 Simeon Brown RN RN rv Babar Ott RN RN rr5 Corrections: (The following items were deleted from the chart) 01:46 01:11 Patient taken to ultrasound. via wheelchair. lc3 lc3
--- NOTE | 2020-08-03 03:40 | EDPHYS ---
Physician Documentation [facility] Name: Nicole Karimi Age: 34 yrs Sex: Male : 1985 Arrival Date: 08/03/2020 Time: 00:10 Bed 5 Private MD: ED Physician Jin Cruz HPI: 08/03 00:15 This 34 yrs old Black Male presents to ER via EMS with complaints of Left Testicle cp Swelling and Pain. Historical: - Allergies: 00:14 NKDA; rv - PMHx: 00:14 HIV; syphilis; rv - PSHx: 00:14 None; rv - Immunization history:: Adult Immunizations unknown. - Social history:: Smoking status: unknown. ROS: 00:20 Constitutional: Negative for body aches, chills, fever, poor PO intake. cp 00:20 Eyes: Negative for injury, pain, redness, and discharge. cp 00:20 Cardiovascular: Negative for chest pain. 00:20 Respiratory: Negative for cough, shortness of breath, wheezing. 00:20 Abdomen/GI: Negative for abdominal pain, nausea, vomiting, and diarrhea. 00:20 : Positive for testicular pain left testicle swelling, Negative for flank pain, burning with urination, penile discharge. 00:20 Skin: Negative for cellulitis, rash. 00:20 All other systems are negative. Exam: 00:25 Constitutional: The patient appears in no acute distress, alert, awake, non-toxic, well cp developed, well nourished. 00:25 Head/Face: Normocephalic, atraumatic. cp 00:25 Cardiovascular: Rate: normal, Rhythm: regular. 00:25 Respiratory: the patient does not display signs of respiratory distress, Respirations: normal, no use of accessory muscles, no retractions, labored breathing, is not present. 00:25 Abdomen/GI: Inspection: abdomen appears normal, Palpation: abdomen is soft and non-tender, in all quadrants. 00:25 Back: CVA tenderness, is absent. 00:25 : Male external genitalia: Circumcision noted. erythema, is absent, swelling: of the left testicle is noted, that is mild, tenderness, of the left testicle is noted, that is moderate. Vital Signs: 00:15 BP 154 / 99; Pulse 64; Resp 16; Temp 97.4; Pulse Ox 98% ; Weight 79.38 kg; Height 6 ft. rv 2 in. (187.96 cm); 01:30 BP 141 / 75; Pulse 60; Resp 19; Pulse Ox 98% ; rr5 03:44 BP 136 / 71; Pulse 61; Resp 15; Pulse Ox 99% on R/A; rv 00:15 Body Mass Index 22.47 (79.38 kg, 187.96 cm) rv MDM: 00:15 Patient medically screened. cp 08/03 00:14 Order name: CBC with Diff; Complete Time: 01:03 cp 08/03 00:14 Order name: BMP; Complete Time: 01:03 cp 08/03 00:14 Order name: US Scrotum Testicles cp 08/03 00:14 Order name: IV; Complete Time: 00:26 cp Administered Medications: 00:35 Drug: TORadol - (ketorolac) 15 mg Route: IVP; Site: right antecubital; rv 03:44 Follow up: Response: No adverse reaction rv 01:16 Drug: Rocephin (cefTRIAXone) 1 grams Route: IV; Rate: calculated rate; Site: right rv antecubital; 03:44 Follow up: Response: No adverse reaction rv Disposition: 06:45 Co-signature as Attending Physician, Jin Cruz MD I agree with the assessment and tw4 plan of care. Disposition: 08/03/20 03:39 Discharged to Home. Impression: SCROTAL MASS. - Condition is Stable. - Discharge Instructions: Scrotal Masses. - Prescriptions for Ibuprofen 800 mg Oral Tablet - take 1 tablet by ORAL route every 12 hours As needed take with food; 20 tablet. - Medication Reconciliation Form, Thank You Letter, Antibiotic Education, Prescription Opioid Use form. - Follow up: Private Physician; When: Upon discharge from the Emergency Department; Reason: Recheck today's complaints, Continuance of care, Re-evaluation by your physician. - Problem is new. - Symptoms have improved. Signatures: Dispatcher [employer] EDMS Russell Lemus PA PA cp Wadley, Terrence, MD MD tw4 Simeon Brown, RN RN rv Corrections: (The following items were deleted from the chart) 03:45 03:39 08/03/2020 03:39 Discharged to Home. Impression: SCROTAL MASS. Condition is rv Stable. Forms are Medication Reconciliation Form, Thank You Letter, Antibiotic Education, Prescription Opioid Use. Follow up: Private Physician; When: Upon discharge from the Emergency Department; Reason: Recheck today's complaints, Continuance of care, Re-evaluation by your physician. Problem is new. Symptoms have improved. tw4
[2020-08-03 03:53] VITALS: TEMP 97.4
[2020-08-03 03:56] VITALS: BP 136/71; O2SAT 99
--- NOTE | 2020-08-03 20:17 | RAD REPORT ---
EXAM DESCRIPTION: US - Scrotum Testicles - 08/03/2020 1:47 am ADDENDUM #1 THIS REPORT CONTAINS FINDINGS THAT MAY BE CRITICAL TO PATIENT CARE: The findings were verbally discus sed via telephone conference with Dr. Jin Cruz by Dr. Regla Rodriguez on 08/03/2020 3:22 AM CD T .The results were acknowledged and understood. A typographical error is noted within the impression. IMPRESSION: 1. Heterogeneous mass within the left testicle with associated calcification. While in tratesticular hematoma is high within the differential given the heterogeneity, underlying malignancy is not excluded. Correlation for history of trauma. Further evaluation versus close follow-up to ass ess change could be considered. 2. No evidence of torsion. Electronically signed by: Maribel Rodriguez MD 08/03/2020 3:23 AM CDT End of Addendum EXAM DESCRIPTION: US Scrotum CLINICAL HISTORY: The patient is 34 years old and is Male; left testicle pain and swelling TECHNIQUE: Real-time ultrasound of the scrotum with color Doppler and image documentation. COMPARISON: No relevant prior studies available. FINDINGS: RIGHT TESTICLE: Unremarkable. No mass. No torsion. LEFT TESTICLE: A heterogeneous mass within the left testicle is present. The mass measures approx imately 4.6 x 2.2 cm. Coarse calcifications are present throughout the left testicle. No torsion. EPIDIDYMIDES: Unremarkable. SCROTUM: Unremarkable. IMPRESSION: 1. Heterogeneous mass within the left testicle with associated calcification. While in tratesticular hematoma is present given the heterogeneity, underlying malignancy is not excluded. Cor relation for history of trauma. 2. No evidence of torsion. Electronically signed by: Maribel Rodriguez MD 08/03/2020 3:06 AM CDT Due to temporary technical issues with the PACS/Fluency reporting system, reports are being signed by the in house radiologists without review as a courtesy to insure prompt reporting. The interpreting radiologist is fully responsible for the content of the report.
== END 2020-08-03 03:45 | disposition home or self-care (01) ==
LOC: ER 00:06
DX: N50.812 Left testicular pain (principal); N50.89 Other specified disorders of the male genital organs
CPT/HCPCS: 36415; 76870; 80048; 85025; 96374; 96375; 99284; J0696

== ENCOUNTER 2020-10-30 17:09 | Emergency (ER) | payer SELFPAY ==
[2020-10-30 18:07] LABS: Absolute Lymphocytes (CBC) 1.1 K/uL (0.7-4.9); Basophils % 0.9 % (0-1.3); Hematocrit 38.1 % (39.6-49.0); Lymphocytes % 13.1 % (15.3-44.8); MPV 7.6 fL (7.6-11.3); RBC Red Blood Cell Count 4.53 M/uL (4.33-5.43)
[2020-10-30 18:39] LABS: ALT/SGPT 22 U/L (12-78); AST/SGOT 29 U/L (15-37); Albumin 3.8 g/dL (3.4-5.0); Alkaline Phosphatase 84 U/L (45-117); BUN Blood Urea Nitrogen 17 mg/dL (7-18); Bicarbonate 27 mmol/L (21-32); Bilirubin Direct < 0.1 mg/dL (0-0.2); Bilirubin Total 0.3 mg/dL (0.2-1.0); Glucose Level 80 mg/dL (74-106); Lipase 32 U/L (73-393); Potassium 3.6 mmol/L (3.5-5.1); Protein, Total 8.2 g/dL (6.4-8.2); Sodium Level 138 mmol/L (136-145)
--- NOTE | 2020-10-30 19:36 | RAD REPORT ---
EXAM DESCRIPTION: US - Scrotum Testicles - 10/30/2020 6:54 pm CLINICAL HISTORY: Testicular pain COMPARISON: July 2020 FINDINGS: Right testicle measures 4.7 x 2.3 x 3.2 centimeters. Echotexture is homogeneous. Normal bl ood flow Left testicle measures 6.3 x 4 x 4.2 centimeters. . There is little normal appearing testicular tissu e. The echotexture is a markedly inhomogeneous containing many cystic and hypoechoic areas. Blood kenya w is visualized to the left testicle The right epididymis is normal in size and echotexture. Left epididymis is not clearly visualized. IMPRESSION: Enlarged, heterogeneous left testicle containing many cystic areas. This could represent a subacute hematoma. An abscess is another consideration. Unusual appearing neoplasm although possib le is considered less likely
--- NOTE | 2020-10-30 19:54 | EDPHYS ---
Physician Documentation [facility] Name: Nicole Karimi Age: 35 yrs Sex: Male : 1985 Arrival Date: 10/30/2020 Time: 17:14 Bed 13 Private MD: ED Physician Thompson Han HPI: 10/30 17:45 This 35 yrs old Black Male presents to ER via [employer] with complaints of cp Testicular Swelling. 17:45 The patient presents with swelling, that is moderate, of the left testicle, tenderness, cp that is moderate, of the left testicle. Onset: The symptoms/episode began/occurred 4-5 days. Associated signs and symptoms: Pertinent negatives: abdominal pain, dysuria, fever. Severity of symptoms: in the emergency department the symptoms are unchanged. Review of records show patient was seen in this ED 08-03-2020 for left testicle swelling and informed there was concern for testicular mass. Patient denies any f/u with urology. Patient denies any trauma to area. Historical: - Allergies: 17:16 NKDA; tw2 - Home Meds: 17:16 None [Active]; tw2 - PMHx: 17:16 HIV; syphilis; tw2 - Immunization history:: Adult Immunizations unknown. - Social history:: Smoking status: . ROS: 17:50 : Positive for testicular pain left testicle swelling, Negative for urinary symptoms. cp 17:50 Eyes: Negative for injury, pain, redness, and discharge. cp 17:50 Constitutional: Negative for body aches, chills, fever, poor PO intake. 17:50 Abdomen/GI: Negative for abdominal pain, nausea, vomiting, and diarrhea. 17:50 Back: Negative for pain at rest, pain with movement. 17:50 Skin: Negative for rash. 17:50 All other systems are negative. Exam: 17:55 Constitutional: The patient appears in no acute distress, alert, awake, non-toxic, well cp developed, well nourished. 17:55 Head/Face: Normocephalic, atraumatic. cp 17:55 Eyes: Periorbital structures: appear normal, Conjunctiva: normal, no exudate, no injection, Sclera: no appreciated abnormality. 17:55 Chest/axilla: Inspection: normal. 17:55 Cardiovascular: Rate: normal. 17:55 Respiratory: the patient does not display signs of respiratory distress, Respirations: normal, no use of accessory muscles, no retractions, labored breathing, is not present. 17:55 Abdomen/GI: Inspection: abdomen appears normal, Palpation: abdomen is soft and non-tender, in all quadrants. 17:55 Back: pain, is absent, ROM is normal. 17:55 : Male external genitalia: Circumcision noted. swelling: of the left testicle is noted, testicle, that is moderate, tenderness, of the left testicle is noted, that is moderate. 17:55 Skin: cellulitis, is not appreciated, no rash present. Vital Signs: 17:14 Pulse 88; Resp 17; Temp 99(O); Pulse Ox 100% on R/A; Weight 74.84 kg (R); Height 6 ft. tw2 0 in. (182.88 cm); 17:14 BP 141 / 95; Pulse 82; Resp 17; Pulse Ox 100% on R/A; tw2 18:11 BP 128 / 91; Pulse 63; Resp 17; Pulse Ox 100% on R/A; tw2 19:07 BP 137 / 84; Pulse 85; Resp 18 S; Pulse Ox 100% on R/A; ad5 20:30 BP 140 / 91; Pulse 83; Resp 18 S; Pulse Ox 100% on R/A; ad5 17:14 Body Mass Index 22.38 (74.84 kg, 182.88 cm) tw2 MDM: 17:26 Patient medically screened. 19:54 Data reviewed: vital signs, nurses notes, lab test result(s), radiologic studies, cp ultrasound, I have discussed the patient's presentation/case with the attending Emergency Department Physician; and as a result, I will discharge patient. 19:54 Counseling: I had a detailed discussion with the patient and/or guardian regarding: the cp historical points, exam findings, and any diagnostic results supporting the discharge/admit diagnosis, lab results, radiology results, the need for outpatient follow up, for definitive care, a urologist. Response to treatment: the patient's symptoms have mildly improved after treatment. 10/30 17:42 Order name: Basic Metabolic Panel; Complete Time: 19:10 cp 10/30 17:42 Order name: CBC with Diff; Complete Time: 19:10 cp 10/30 19:10 Interpretation: Normal except: HGB 12.7; HCT 38.1; CALDERON% 78.0; LYM% 13.1. cp 10/30 17:42 Order name: Hepatic Function; Complete Time: 19:10 cp 10/30 17:42 Order name: Lipase; Complete Time: 19:10 cp 10/30 17:42 Order name: US Scrotum Testicles; Complete Time: 19:38 cp 10/30 17:42 Order name: IV Saline Lock; Complete Time: 18:11 cp 10/30 17:42 Order name: Labs collected and sent; Complete Time: 18:11 cp Administered Medications: 20:01 Drug: Ibuprofen 800 mg Route: PO; ad5 20:54 Follow up: Response: No adverse reaction ad5 20:01 Drug: Doxycycline 100 mg Route: PO; ad5 20:54 Follow up: Response: No adverse reaction ad5 Disposition: 10/31 07:05 Co-signature as Attending Physician, Thompson Han MD I agree with the assessment and kdr plan of care. Disposition Summary: 10/30/20 19:54 Discharge Ordered Location: Home cp Problem: an ongoing problem cp Symptoms: have improved cp Condition: Stable cp Diagnosis - Testicular pain, unspecified - left cp - Left Testicle Mass cp Followup: cp - With: Jalen Cerda MD - When: 2 - 3 days - Reason: Recheck today's complaints Discharge Instructions: - Discharge Summary Sheet cp - Testicular Self-Exam cp - Testicular Cancer cp Forms: - Medication Reconciliation Form cp - Thank You Letter cp - Antibiotic Education cp - Prescription Opioid Use cp Prescriptions: - Ibuprofen 800 mg Oral Tablet - take 1 tablet by ORAL route every 8 hours As needed take with food; 30 tablet; cp Refills: 0, Product Selection Permitted - Doxycycline Hyclate 100 mg Oral Tablet - take 1 tablet by ORAL route every 12 hours; 20 tablet; Refills: 0, Product cp Selection Permitted Signatures: Dispatcher [employer] Thompson Rivera MD MD kdr Russell Lemus PA PA cp Wise, Tara, RN RN tw2 Jean Marie Hazel ad5
--- NOTE | 2020-10-30 19:54 | ER ---
Nurse's Notes [facility] Name: Nicole Karimi Age: 35 yrs Sex: Male : 1985 Arrival Date: 10/30/2020 Time: 17:14 Bed 13 Private MD: Diagnosis: Testicular pain, unspecified-left;Left Testicle Mass Presentation: 10/30 17:14 Chief complaint: Patient states: I have LEFT testicular swelling. Coronavirus screen: tw2 At this time, the client does not indicate any symptoms associated with coronavirus-19. Ebola Screen: Patient denies travel to an Ebola-affected area in the 21 days before illness onset. Initial Sepsis Screen: Does the patient meet any 2 criteria? No. Patient's initial sepsis screen is negative. Does the patient have a suspected source of infection? No. Patient's initial sepsis screen is negative. Risk Assessment: Do you want to hurt yourself or someone else? Patient reports no desire to harm self or others. Note pt in hand cuffs with [address] [employer] officers at bedside. Onset of symptoms was October 30, 2020. 17:14 Method Of Arrival: Law Enforcement: [employer] tw2 17:14 Acuity: HATTIE 3 tw2 Triage Assessment: 17:16 General: Appears in no apparent distress. slender, Behavior is calm, cooperative, tw2 appropriate for age. Pain: Complains of pain in pelvis. EENT: No signs and/or symptoms were reported regarding the EENT system. Neuro: Level of Consciousness is awake, alert, obeys commands, Oriented to person, place, time, situation. Cardiovascular: Capillary refill < 3 seconds. Respiratory: Airway is patent Respiratory effort is even, unlabored, Respiratory pattern is regular, symmetrical. GI: No signs and/or symptoms were reported involving the gastrointestinal system. Abdomen is flat. : Reports pain testicle. Derm: No signs and/or symptoms reported regarding the dermatologic system. Musculoskeletal: Circulation, motion, and sensation intact. Historical: - Allergies: 17:16 NKDA; tw2 - Home Meds: 17:16 None [Active]; tw2 - PMHx: 17:16 HIV; syphilis; tw2 - Immunization history:: Adult Immunizations unknown. - Social history:: Smoking status: . Screenin:18 Abuse screen: Denies threats or abuse. Nutritional screening: No deficits noted. tw2 Tuberculosis screening: No symptoms or risk factors identified. Fall Risk None identified. Assessment: 17:17 Reassessment: see triage assessment. tw2 18:11 Reassessment: Patient appears in no apparent distress at this time. No changes from tw2 previously documented assessment. Patient and/or family updated on plan of care and expected duration. Pain level reassessed. Patient is alert, oriented x 3, equal unlabored respirations, skin warm/dry/pink. 19:07 Reassessment: Patient appears in no apparent distress at this time. Patient and/or ad5 family updated on plan of care and expected duration. Pain level reassessed. Patient is alert, oriented x 3, equal unlabored respirations, skin warm/dry/pink. 20:15 Reassessment: Patient appears in no apparent distress at this time. No changes from ad5 previously documented assessment. Pt reports unable to provide urine specimen, provided water and gatorade. Provider aware. Vital Signs: 17:14 Pulse 88; Resp 17; Temp 99(O); Pulse Ox 100% on R/A; Weight 74.84 kg (R); Height 6 ft. tw2 0 in. (182.88 cm); 17:14 BP 141 / 95; Pulse 82; Resp 17; Pulse Ox 100% on R/A; tw2 18:11 BP 128 / 91; Pulse 63; Resp 17; Pulse Ox 100% on R/A; tw2 19:07 BP 137 / 84; Pulse 85; Resp 18 S; Pulse Ox 100% on R/A; ad5 20:30 BP 140 / 91; Pulse 83; Resp 18 S; Pulse Ox 100% on R/A; ad5 17:14 Body Mass Index 22.38 (74.84 kg, 182.88 cm) tw2 ED Course: 17:14 Patient arrived in ED. tw2 17:15 Russell Lemus PA is PHCP. cp 17:15 Thompson Han MD is Attending Physician. cp 17:15 Bed in low position. Call light in reach. [place] [employer] at bedside and pt remains in tw2 handcuffs at this time. Pulse ox on. NIBP on. Warm blanket given. 17:16 Triage completed. tw2 17:17 Arm band placed on. tw2 17:18 Cely Gutierrez, RN is Primary Nurse. tw2 18:54 Scrotum Testicles In Process Unspecified. EDMS 19:51 Jalen Cerda MD is Referral Physician. cp 20:55 No provider procedures requiring assistance completed. IV discontinued, intact, ad5 bleeding controlled, No redness/swelling at site. Pressure dressing applied. Administered Medications: 20:01 Drug: Ibuprofen 800 mg Route: PO; ad5 20:54 Follow up: Response: No adverse reaction ad5 20:01 Drug: Doxycycline 100 mg Route: PO; ad5 20:54 Follow up: Response: No adverse reaction ad5 Outcome: 19:54 Discharge ordered by MD. cp 20:55 Discharged to [employer] Enforcement ad5 20:55 Condition: stable 20:55 Discharge instructions given to patient, Instructed on discharge instructions, follow up and referral plans. medication usage, Demonstrated understanding of instructions, follow-up care, medications, Prescriptions given X 2. 20:56 Patient left the ED. ad5 Signatures: Dispatcher [employer] EDMS Russell Lemus PA PA cp Wise, Tara, RN RN tw2 Jean Marie Hazel ad5
[2020-10-30] MEDS ORDERED: DOXYCYCLINE 100 MG CAP PO ONE (20:17)
[2020-10-30] MEDS ORDERED: IBUPROFEN 400 MG TAB ONE (20:17)
[2020-10-30 21:01] VITALS: TEMP 99; O2SAT 100
[2020-10-30 21:06] VITALS: BP 140/91
== END 2020-10-30 20:56 | disposition home or self-care (01) ==
LOC: ER 17:09
DX: N50.89 Other specified disorders of the male genital organs (principal); Z21 Asymptomatic human immunodeficiency virus [HIV] infection status
CPT/HCPCS: 36415; 76870; 80048; 80076; 83690; 85025; 99284

== ENCOUNTER 2021-06-30 02:34 | Emergency (ER) | payer SELFPAY ==
--- OUTSIDE RECORDS SUMMARY | 2021-06-30 02:37 | XMS REPORT | Continuity of Care Document ---
:1985 Author Organization [facility] t Address [address] [place] [address] Care Team Providers Name Role Phone Pcp, Does Not Have A Primary Care Physician Doctor Unassigned, Name Attending Clinician Unavailable BRIANA Attending Clinician Unavailable RODOLFO Attending Clinician Unavailable Rodolfo KEEN Attending Clinician Inés Garg MD Attending Clinician ROMEO Attending Clinician Unavailable RODOLFO Admitting Clinician Unavailable Payers Payer Name Policy Type Policy Number Effective Date Expiration Date S ource Problems Condition Condition Condition Status Onset Resolution Last Treating Co mments Source Name Details Category Date Date Treatment Clinician Date 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 07-14 it y of ciency ciency 00:00: [place] virus virus 00 Medical infection) infection) Br anch Substance Substance Disease Active Uni vers abuse abuse 07-14 ity of 00:00: [address] Allergies, Adverse Reactions, Alerts Allergy Allergy Status Severity Reaction(s) Onset Inactive Treating Comm ents Source Name Type Date Date Clinician PENICILL DRUG Active Unknown-Cmnt 2020-04 Un siobhan IN INGREDI 05-10 ity of 00:: [address] Penicill Propensi Active Unknown - 2020-04 Uni vers in ty to See comments 05-10 ity of adverse 00:00: [place] reaction Medical s [place] NO KNOWN Drug Active Univers ALLERGIE Class ity of S [facility] Social History Social Habit Start Date Stop Date Quantity Comments Source History of tobacco 2002-04-24 Cigarette Smoker University of use 00:00:00 [facility] Exposure to Not sure University SARS-CoV-2 (event) [facility] Cigarettes smoked 2017-06-22 2017-06-22 Univers ity of current (pack per 00:00:00 00:00:00 ) - Reported Branch Alcohol intake 2017-06-22 2017-06-22 0 /d University of 00:00:00 00:00:00 [facility] Sex [birth year] Universit y of 00:00:00 00:00:00 [facility] Smoking Status Start Date Stop Date Source Current every day smoker 2017-06-22 00:00:00 Uni versity of [facility] Medications Ordered Filled Start Stop Current Ordering Indication Dosage Frequency Signature Comments Components Source Medication Medication Date Date Medication? Clinician (SIG) Name Name ibuprofen 2020-04 Yes [id number] 600mg Take 1 Univers 600 mg 1-28 [id number] tablet by ity of tablet 00:00: mouth [place] 00 every 8 Medical (eight) Branch hours as needed for Pain (scale 4-6). ibuprofen 2020-04 Yes [id number] 600mg Take 1 Univers 600 mg 1-28 [id number] tablet by ity of tablet 00:00: mouth [place] 00 every 8 Medical (eight) Branch hours as needed for Pain (scale 4-6). ketorolac 30mg 30 mg, Unive rs (TORADOL) 11-17 08- Slow IV ity of injection 05:30: 04:31 Push, [place] 30 mg 00 :00 ONCE, 1 Medical dose, Sat Branch 11/17/20 at 0030, Routine
receiving team member approving Restricted medication : ANDRE GARG elviteg-cob Yes 1{tbl} Take 1 Un siobhan -emtri-teno 9-25 tablet by ity of f ALAFEN 00:00: mouth [place] 150-150-200 00 daily. Medica l -10 mg per Branch tablet gabapentin Yes TAKE 1 Unive rs 300 mg 4-17 CAPSULE BY ity of capsule 00:00: MOUTH [place] 00 3TIMES Medical DAILY. Branch hydrOXYzine Yes 25mg Take 1 Univ ers 25 mg 9-11 tablet by ity of tablet 00:00: mouth [place] 00 every 6 Medical (six) Branch hours as needed for Itching. lidocaine 2016- Yes 1{spray Apply 1 Un siobhan HCl (BURN 12-18 } [place] to ity of SPRAY, 00:00: area(s) 3 [place] LIDOCAINE,) 00 (three) Medic al 2 % [address] times Branch daily as needed (penile pain). valACYclovi Yes 1g Take 1 Univ ers r 1 gram 12-18 tablet by ity of tablet 00:00: mouth 2 [place] 00 (two) Medical times Branch daily. acetaminoph Yes 1{tbl} Take 1 Un siobhan en-codeine 12-18 tablet by ity of 300-30 mg 00:00: mouth [place] tablet 00 every 12 Medical (twelve) Branch hours as needed for Pain (scale 7-10). lidocaine Yes 15mL Take 15 mL Un siobhan 2% viscous 12-18 by mouth ity o f 2 % 00:00: every 6 [place] solution 00 (six) Medical hours as Branch needed for Oral mucosal pain. No known No [facility] No known No Univers medications [facility] Immunizations Ordered Filled Immunization Date Status Comments [facility] e Immunization Name Name Pneumococcal 2016-07-14 Completed University o f Polysaccharide, 00:00:00 [place] [facility] ical PPSV23 (PNEUMOVAX) Branch Influenza Virus 2016-07-14 Completed Universit y of Vaccine Quad IM 3+ 00:00:00 [facility] Pneumococcal 2016-07-14 Completed University o f Polysaccharide, 00:00:00 [place] [facility] ical PPSV23 (PNEUMOVAX) Branch Influenza Virus 2016-07-14 Completed Universit y of Vaccine Quad IM 3+ 00:00:00 [facility] Pneumococcal 2016-07-14 Completed University o f Polysaccharide, 00:00:00 [place] [facility] ical PPSV23 (PNEUMOVAX) Branch Influenza Virus 2016-07-14 Completed Universit y of Vaccine Quad IM 3+ 00:00:00 [facility] Pneumococcal 2016-07-14 Completed University o f Polysaccharide, 00:00:00 [place] [facility] PPSV23 (PNEUMOVAX) Branch Influenza Virus 2016-07-14 Completed Universit y of Vaccine Quad IM 3+ 00:00:00 [facility] Pneumococcal 2016-07-14 Completed University o f Polysaccharide, 00:00:00 [place] [facility] ical PPSV23 (PNEUMOVAX) Branch Influenza Virus 2016-07-14 Completed Universit y of Vaccine Quad IM 3+ 00:00:00 [facility] Influenza Virus 2015-01-08 Completed Universit y of Vaccine Quad ID 00:00:00 [facility] 1864 YRS Branch Pneumococcal 13 2015-01-08 Completed Universit y of Conjugate, PCV13 00:00:00 [facility] dical (Prevnar 13) Branch TDAP (ADACEL) 2015-01-08 Completed University of VACCINE 00:00:00 [facility] Influenza Virus 2015-01-08 Completed Universit y of Vaccine Quad ID 00:00:00 [facility] 1863 [facility] Branch Pneumococcal 13 2015-01-08 Completed Universit y of Conjugate, PCV13 00:00:00 [facility] dical (Prevnar 13) Branch TDAP (ADACEL) 2015-01-08 Completed University of VACCINE 00:00:00 [facility] Influenza Virus 2015-01-08 Completed Universit y of Vaccine Quad ID 00:00:00 [facility] 1863 [facility] Branch Pneumococcal 13 2015-01-08 Completed Universit y of Conjugate, PCV13 00:00:00 [facility] dical (Prevnar 13) Branch TDAP (ADACEL) 2015-01-08 Completed University of VACCINE 00:00:00 [facility] Influenza Virus 2015-01-08 Completed Universit y of Vaccine Quad ID 00:00:00 [facility] 1863 [facility] Branch Pneumococcal 13 2015-01-08 Completed Universit y of Conjugate, PCV13 00:00:00 [facility] dical (Prevnar 13) Branch TDAP (ADACEL) 2015-01-08 Completed University of VACCINE 00:00:00 [facility] Influenza Virus 2015-01-08 Completed Universit y of Vaccine Quad ID 00:00:00 [facility] 1863 [facility] Branch Pneumococcal 13 2015-01-08 Completed Universit y of Conjugate, PCV13 00:00:00 [facility] dical (Prevnar 13) Branch TDAP (ADACEL) 2015-01-08 Completed University of VACCINE 00:00:00 [facility] Vital Signs Vital Name Observation Time Observation Value Comments Source Systolic blood 2021-03-10 14:46:00 140 mm[Hg] Univer sity of pressure [facility] Diastolic blood 2021-03-10 14:46:00 100 mm[Hg] Unive rsity of pressure [place] [facility] Heart rate 2021-03-10 14:46:00 98 /min Universi ty of [place] [facility] Body temperature 2021-03-10 14:46:00 36.56 Reanna Univ ersity of [place] [facility] Respiratory rate 2021-03-10 14:46:00 18 /min Univ ersity of [place] [facility] Body height 2021-03-10 14:46:00 182.9 cm Universi ty of [place] [facility] Body weight 2021-03-10 14:46:00 76.658 kg Universi ty of [place] [facility] BMI 2021-03-10 14:46:00 22.92 kg/m2 Universi ty of [facility] Oxygen saturation in 2021-03-10 14:46:00 100 /min University of Arterial blood by [facility] Pulse oximetry Branch Diastolic blood 2020-11-17 07:00:00 92 mm[Hg] Unive rsity of pressure [facility] Heart rate 2020-11-17 07:00:00 74 /min Universi ty of [place] [facility] Respiratory rate 2020-11-17 07:00:00 18 /min Univ ersity of [facility] Oxygen saturation in 2020-11-17 07:00:00 100 /min University of Arterial blood by [facility] Pulse oximetry Branch Systolic blood 2020-11-17 07:00:00 132 mm[Hg] Univer sity of [facility] Body temperature 2020-11-17 06:44:00 36.17 Reanna [facility] ersity of [facility] Body height 2020-11-16 23:58:00 182.9 cm Universi ty of [place] [facility] Body weight 2020-11-16 23:58:00 72.576 kg Universi ty of [place] [facility] BMI 2020-11-16 23:58:00 21.70 kg/m2 Universi ty of [facility] Procedures Procedure Date / Time Performing Clinician Source Performed AUTHORIZATION FOR 2021-03-23 06:01:00 Doctor Unassigned, No Univ ersity [facility] RELEASE OF PHI Name Medical Branch XR ANKLE 3+ VW RIGHT 2021-03-10 15:12:24 Guerline Reynolds [facility] ity of [facility] US TESTICULAR TORSION 2020-11-17 05:19:40 Andre Garg [facility] COMP. METABOLIC PANEL 2020-11-17 04:00:00 Andre Garg [facility] ([id number]) [facility] CBC WITH DIFF 2020-11-17 04:00:00 Andre Garg [facility] COVID-19 (ID NOW RAPID 2020-11-17 04:00:00 Andre Garg [facility] TESTING) Medical Branch URINALYSIS 2020-11-17 03:59:00 Andre Garg [facility] AUTHORIZATION FOR 2020-07-27 05:01:00 Doctor Unassigned, No [facility] RELEASE OF PHI Name [facility] AUTHORIZATION FOR 2019-12-02 05:01:00 Doctor Unassigned, No [facility] RELEASE OF PHI Name [facility] Encounters Start End Encounter Admission Attending Care Care Encounter Source Date/Time Date/Time Type Type Clinicians Facility Department ID 2021-02-11 Emergency [facility] [id number] [facility] 2021-03-23 2021-03-23 Orders Doctor MILAN [id number] Univers 00:00:00 00:00:00 Only Unassigned, L[place] [id number] [facility] [place] [facility] 4.2.7.2.686 Des as [id number] [address] 2021-03-11 2021-03-11 [facility] [id number] Univers 09:00:00 09:00:00 SARBJIT [id number] [facility] 2021-03-11 2021-03-11 [facility] [id number] Univers 09:00:00 09:00:00 SARBJIT [facility] 2021-03-10 2021-03-10 Emergency X RODOLFO [facility] ERT [id number] Univers 08:46:00 09:58:00 [facility] 2021-03-10 2021-03-10 [facility] [id number] Univers 08:46:00 09:58:00 Guerline CHAVEZ [id number] i ty of AHMEEK 4.2.7.2.686 [facility] [id number] [address] 2020-12-27 2020-12-27 [facility] [id number] Univers 08:00:00 08:00:00 [facility] 2020-12-27 2020-12-27 [facility] [id number] Univers 08:00:00 08:00:00 [facility] [id number] ity [facility] 2020-11-16 2020-11-17 Emergency [facility] [id number] Univers 19:04:00 02:29:00 Andre [place] [id number] ity [facility] 4.2.7.2.686 [facility] [id number] [address] 2020-07-27 2020-07-27 Orders Doctor MILAN [id number] Univers 00:00:00 00:00:00 Only Unassigned, LEXUS [id number] ity of [place] [facility] 4.2.7.2.686 Des as [phone] [address] 2020-06-07 2020-06-07 Outpatient [facility] [id number] Univers 10:00:00 10:00:00 SOCORRO [id number] [facility] 2020-06-07 2020-06-07 Outpatient [facility] [id number] Univers 10:00:00 10:00:00 SOCORRO [facility] 2019-12-02 2019-12-02 Orders Doctor MILAN [id number] Univers 00:00:00 00:00:00 Only Unassigned, LEXUS [id number] ity of [place] [facility] 4.2.7.2.686 Des as [id number] [address] Results Test Description Test Time Test Comments Results Result Comments Source URINALYSIS 2020-11-17 04:30:40 Test Item Value Reference Range Interpretation Comme nts APPEARANCE (test code = Clear Clear 2962269863) COLOR (test code = 4558817819) Yellow Yellow PH (test code = 3232104883) 4.8-8.0 SP GRAVITY (test code = 1.003-1.030 0344154791) GLU U QUAL (test code = Normal Normal 8556830260) BLOOD (test code = 3142152437) Negative Negative KETONES (test code = 9841747452) Negative Negative PROTEIN (test code = 2887-8) Negative Negative UROBILIN (test code = 8845077013) Normal Normal BILIRUBIN (test code = Negative Negative 6715050212) NITRITE (test code = 7881207834) Negative Negative LEUK MADONNA (test code = Negative Negative 9059263255) RBC/HPF (test code = 0618116434) See_Comment [Automated message] The system which ge nerated this result transmit poncho reference range: 0 - 3 HP F. The reference range was not used to interpret th is result as normal/abnormal . WBC/HPF (test code = 4397428565) <1 See_Comment [Automated message] The system which ge nerated this result transmit poncho reference range: 0 - 5 HP F. The reference range was not used to interpret th is result as normal/abnormal . BACTERIA (test code = 3894442456) Few Negative A Lab Interpretation (test code = Abnormal 42242-3) [facility]2020-11-17 04:24:47 Test Item Value Reference Range Interpretation Comments SARS-CoV-2 Rapid ID NOW Not Detected Not Detected (test code = 93291-9) ALISE (test code = ALISE) ID NOW COVID-19 Assay is an isothermal nucleic acid amplification test intended for the qualitative detection of nucleic acid from SARS-CoV-2 viral RNA in nasopharyngeal (MEETING FACILITATOR) specimens. It is used under Emergency Use Authorization (EUA) by FDA. The limit of detection (LOD) of the assay is 125 Genome Equivalents/mL. A positive result is indicative of the presence of SARS-CoV-2 RNA. ?Clinical correlation with patient history and other diagnostic information is necessary to determine patient infection status. A negative (Not Detected) result does not preclude SARS-CoV-2 infection. In patients with clinical symptoms and other tests that are consistent with SARS-CoV-2 infection, negative results should be treated as presumptive negative and a new specimen should be tested with alternative PCR molecular test. Invalid: Please collect a new specimen for repeat patient testing if clinically indicated. Lab Interpretation Normal (test code = 25073-0) [facility]. METABOLIC PANEL (68975)2020-11-17 04:22:11 Test Item Value Reference Range Interpretation Comments NA (test code = 138 mmol/L 135-145 0777636185) K (test code = 4.0 mmol/L 3.5-5.0 2798058297) CL (test code = 98 mmol/L 98-108 3150112181) CO2 TOTAL (test code = 30 mmol/L 23-31 6010892870) AGAP (test code = 2-16 3115589041) BUN (test code = 13 mg/dL 7-23 9771682531) GLUCOSE (test code = 83 mg/dL 70-110 2221179314) CREATININE (test code = 0.98 mg/dL 0.60-1.25 4985829200) TOTAL BILI (test code = 0.5 mg/dL 0.1-1.0 2440788046) CALCIUM (test code = 9.9 mg/dL 8.6-10.6 7408894777) T PROTEIN (test code = 9.5 g/dL 6.3-8.2 H 1997173374) ALBUMIN (test code = 4.9 g/dL 3.5-5.0 3540331536) ALK PHOS (test code = 100 U/L 34-122 7362928395) ALTv (test code = 55 U/L 5-50 H 1742-6) AST(SGOT) (test code = 48 U/L 13-40 H 3568331422) eGFR (test code = mL/min/1.73m2 8523999658) ALISE (test code = ALISE) Association of Glomerular Filtration Rate (GFR) and Staging of Kidney Disease* + --+ --+ ------+| GFR (mL/min/1.73 m2) ?| With Kidney Damage ?| ?Without Kidney Damage+ --------+ --------+ +| ?>90 ?| ?Stage one ?| ? Normal ?+ ---+ ---+ -------+| ?60-89 ?| ?Stage two ?| ? Decreased GFR ? + --+ --+ ------+| ?30-59 ?| ?Stage three ?| ? Stage three ? + --+ --+ ------+| ?15-29 ?| ?Stage four ? | ? Stage four ?+ ---+ ---+ -------+| ?<15 (or dialysis) ? ?| ?Stage five ? | ? Stage five ?+ ---+ ---+ -------+ *Each stage assumes the associated GFR level has been in effect for at least three months. ?Stages 1 to 5, with or without kidney disease, indicate chronic kidney disease. Notes: Determination of stages one and two (with eGFR >59mL/min/1.73 m2) requires estimation of kidney damage for at least three months as defined by structural or functional abnormalities of the kidney, manifested by either:Pathological abnormalities or Markers of kidney damage (including abnormalities in the composition of the blood or urine or abnormalities in imaging tests). Lab Interpretation Abnormal (test code = 12293-7) [facility] WITH [id number] 04:18:30 Test Item Value Reference Range Interpretation Comments WBC (test code = See_Comment [Automated 5766-2) message] The sy stem which generated this result transmitted reference range : 4.20 - 10.70 10*3/?L. The reference range was not used to interpret this result as normal/abnormal . RBC (test code = See_Comment [Automated 847-8) message] The sy stem which generated this result transmitted reference range : 4.26 - 5.52 10*6/?L. The reference range was not used to interpret this result as normal/abnormal . HGB (test code = 13.8 g/dL 12.2-16.4 718-7) HCT (test code = 43.2 % 38.4-49.3 4544-3) MCV (test code = 86.1 fL 81.7-95.6 787-2) MCH (test code = 27.5 pg 26.1-32.7 785-6) MCHC (test code = 31.9 g/dL 31.2-35.0 786-4) RDW-SD (test code = 46.1 fL 38.5-51.6 26846-0) RDW-CV (test code = 14.6 % 12.1-15.4 788-0) PLT (test code = See_Comment H [Automated 777-3) message] The sy stem which generated this result transmitted reference range : 150 - 328 10*3/ ?L. The reference r sheree was not used to interpret this result as normal/abnormal . MPV (test code = 9.7 fL 9.8-13.0 L 78076-6) NRBC/100 WBC (test See_Comment [Automat ed code = 3240850561) message] The system which generated this result transmitted reference range : 0.0 - 10.0 /100 WBCs. The refer ence range was not u sed to interpret th is result as normal/abnormal . NRBC x10^3 (test code <0.01 See_Comment [Auto mated = 9516372733) message] The s ystem which generated this result transmitted reference range : 10*3/?L. The reference range was not used to interpret this result as normal/abnormal . GRAN MAT (NEUT) % 48.7 % (test code = 770-8) IMM GRAN % (test code 0.50 % = 9594720371) LYMPH % (test code = 39.7 % 736-9) MONO % (test code = 9.0 % 5905-5) EOS % (test code = 1.5 % 713-8) BASO % (test code = 0.6 % 706-2) GRAN MAT x10^3(ANC) 4.23 10*3/uL 1.99-6.95 (test code = 9055494229) IMM GRAN x10^3 (test 0.04 10*3/uL 0.00-0.06 code = 7108724089) LYMPH x10^3 (test code 3.44 10*3/uL 1.09-3.23 H = 731-0) MONO x10^3 (test code 0.78 10*3/uL 0.36-1.02 = 742-7) EOS x10^3 (test code = 0.13 10*3/uL 0.06-0.53 711-2) BASO x10^3 (test code 0.05 10*3/uL 0.01-0.09 = 704-7) Lab Interpretation Abnormal (test code = 84809-2) [facility]"
[2021-06-30] MEDS ORDERED: LIDOCAINE 1% MPF 5 ML VIAL ONE (03:34)
--- NOTE | 2021-06-30 04:20 | EDPHYS ---
Physician Documentation [facility] Name: Nicole Karimi Age: 35 yrs Sex: Male : 1985 Arrival Date: 06/30/2021 Time: 02:37 Bed 7 Private MD: ED Physician Adarsh Moon HPI: 06/30 02:46 This 35 yrs old Black Male presents to ER via EMS with complaints of Laceration. ms3 02:46 The patient presents with a laceration. The complaints affect the right calf. Context: ms3 the patient is able to ambulate. Onset: The symptoms/episode began/occurred 45 minute(s) ago. Modifying factors: The symptoms are alleviated by nothing. the symptoms are aggravated by nothing. 35-year-old male presents via clued EMS for laceration to right calf that occurred 45 minutes prior to arrival. Patient states he is having moderate pain. Patient denies alleviating or inciting factors. Patient denies numbness or weakness.. Historical: - Allergies: 02:42 NKDA; ll3 - Home Meds: 02:42 None [Active]; ll3 - PMHx: 02:42 HIV; ll3 - PSHx: 02:42 None; ll3 - Immunization history:: Client reports receiving the 2nd dose of the Covid vaccine. - Social history:: Smoking status: Patient reports the use of cigarette tobacco products, denies chronic smoking, but will smoke occasionally, Patient uses street drugs, Methamphetamine (Meth). ROS: 02:46 Constitutional: Negative for fever, and chills. ENT: Negative for injury, pain, and ms3 discharge, Neck: Negative for injury, pain, and swelling, Cardiovascular: Negative for chest pain, and palpitations. Respiratory: Negative for shortness of breath, cough, wheezing, and pleuritic chest pain, Abdomen/GI: Negative for abdominal pain, nausea, vomiting, diarrhea, and constipation, Back: Negative for injury and pain, MS/Extremity: Negative for injury and deformity, Neuro: Negative for headache, weakness, numbness, tingling. Exam: 02:46 Constitutional: This is a well developed, well nourished patient who is awake, alert, ms3 and in no acute distress. Head/Face: Normocephalic, atraumatic. Eyes: Pupils equal round and reactive to light, extra-ocular motions intact. Lids and lashes normal. Conjunctiva and sclera are non-icteric and not injected. Periorbital areas with no swelling, redness, or edema. Neck: Trachea midline, no cervical lymphadenopathy. Supple, full range of motion without nuchal rigidity, or vertebral point tenderness. No Meningismus. Chest/axilla: Normal chest wall appearance and motion. Nontender with no deformity. Cardiovascular: Regular rate and rhythm with a normal S1 and S2. No gallops, murmurs, or rubs. Normal PMI, no JVD. No pulse deficits. Respiratory: Lungs have equal breath sounds bilaterally, clear to auscultation and percussion. No rales, rhonchi or wheezes noted. No increased work of breathing, no retractions or nasal flaring. Abdomen/GI: Soft, non-tender, with normal bowel sounds. No distension or tympany. No guarding or rebound. No evidence of tenderness throughout. MS/ Extremity: Pulses equal, no cyanosis. Neurovascular intact. Full, normal range of motion. Vital Signs: 02:38 BP 154 / 102; Pulse 76; Resp 18; Temp 97.6(O); Pulse Ox 99% on R/A; Weight 74.84 kg ll3 (R); Height 6 ft. 0 in. (182.88 cm) (R); Pain 8/10; 03:50 BP 164 / 113; Pulse 76; Resp 19; Pulse Ox 100% on R/A; ll3 04:49 BP 128 / 84; Pulse 79; Resp 16; Pulse Ox 100% on R/A; ll3 02:38 Body Mass Index 22.38 (74.84 kg, 182.88 cm) ll3 Laceration: 03:53 Wound Repair of 2cm ( 0.8in ) subcutaneous laceration to right oro. Linear shaped.. pm1 Distal neuro/vascular/tendon intact. Anesthesia: Local anesthetic administered with 2 mls of 1% lidocaine. Wound prep: Extensive cleansing with hibiclenz by nurse, Wound irrigation with saline by nurse, Wound explored extensively, Copious irrigation. Skin closed with 3 1-0 Fernanda using staple gun. Dressed with Neosporin, 4x4's. Patient tolerated well. MDM: 02:42 Patient medically screened. ms3 06:12 Differential diagnosis: Laceration vs ROFB. Data reviewed: vital signs, nurses notes, ms3 radiologic studies, plain films. Counseling: I had a detailed discussion with the patient and/or guardian regarding: the historical points, exam findings, and any diagnostic results supporting the discharge/admit diagnosis, lab results, the need for outpatient follow up, to return to the emergency department if symptoms worsen or persist or if there are any questions or concerns that arise at home. 06/30 02:43 Order name: Tib Fib Right XRAY ms3 Administered Medications: 03:56 Drug: Lidocaine (1 %) 5 ml {Note: Administered by Joaquín Del Cid NP.} Volume: 5 ml; ll3 Route: Infiltration; 04:54 Drug: Ibuprofen 600 mg Route: PO; lp1 Disposition: 05:35 Co-signature as Attending Physician, Adarsh Moon DO I agree with the assessment and ms3 plan of care. Disposition Summary: 06/30/21 04:20 Discharge Ordered Location: Home ms3 Condition: Stable ms3 Diagnosis - Laceration without foreign body of lower leg ms3 Followup: ms3 - With: Holger Calero MD - When: 1 week - Reason: Staple/Suture removal Forms: - Medication Reconciliation Form ms3 - Thank You Letter ms3 - Antibiotic Education ms3 - Prescription Opioid Use ms3 Signatures: Dispatcher [employer] EDKarey Walton RN RN lp1 Joaquín Del Cid NP [employer] pm1 Adarsh Moon DO DO ms3 Jay Jay Matute RN RN ll3
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
[2021-06-30 04:51] VITALS: TEMP 97.6
[2021-06-30 04:52] VITALS: BP 164/113; O2SAT 100
[2021-06-30] MEDS ORDERED: IBUPROFEN 200 MG TAB PO ONE (04:59)
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
== END 2021-06-30 05:06 | disposition home or self-care (01) ==
LOC: ER 02:34
PROC: 0JQN0ZZ Repair Right Lower Leg Subcutaneous Tissue and Fascia, Open Approach (ICD-10-PCS; principal; 2021-06-30)
DX: S81.811A Laceration without foreign body, right lower leg, initial encounter (principal); Y28.1XXA Contact with knife, undetermined intent, initial encounter; Y93.89 Activity, other specified; Y92.009 Unspecified place in unspecified non-institutional (private) residence as the place of occurrence of the external cause; F17.210 Nicotine dependence, cigarettes, uncomplicated
CPT/HCPCS: 82947; 99284

== ENCOUNTER 2021-07-04 00:50 | Inpatient (IN) | payer SELFPAY ==
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
[2021-07-04] MEDS ORDERED: MORPHINE 4 MG/ML SYR ONE (02:34)
[2021-07-04] MEDS ORDERED: VANCOMYCIN 1 GM/VIAL ONE (02:34)
[2021-07-04] MEDS ORDERED: ONDANSETRON 4 MG/2 ML VIAL ONE (02:34)
[2021-07-04] MEDS ORDERED: CEFEPIME 1 GM/VIAL ONE (02:34)
[2021-07-04 02:39] LABS: Absolute Lymphocytes (CBC) 1.5 K/uL (0.7-4.9); Hematocrit 35.2 % (39.6-49.0); Lymphocytes % 13.9 % (15.3-44.8); MPV 7.5 fL (7.6-11.3); RBC Red Blood Cell Count 4.18 M/uL (4.33-5.43)
[2021-07-04] MEDS ORDERED: NA CHLORIDE 0.9% 100 ML IV ONE (02:40)
[2021-07-04] MEDS ORDERED: NA CHLORIDE 0.9% 0 ML ONE (02:40)
[2021-07-04 02:43] LABS: Protime INR 1.12
[2021-07-04] MEDS ORDERED: NA CHLORIDE 0.9% 250 ML ONE (02:43)
[2021-07-04 02:55] LABS: ALT/SGPT 57 U/L (12-78); Alkaline Phosphatase 107 U/L (45-117); BUN Blood Urea Nitrogen 13 mg/dL (7-18); Bicarbonate 29 mmol/L (21-32); Bilirubin Total 0.2 mg/dL (0.2-1.0); Glucose Level 94 mg/dL (74-106); Protein, Total 8.8 g/dL (6.4-8.2); Sodium Level 133 mmol/L (136-145)
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
[2021-07-04 03:02] LABS: Potassium 3.9 mmol/L (3.5-5.1)
[2021-07-04 03:03] LABS: AST/SGOT 62 U/L (15-37)
[2021-07-04] MEDS ORDERED: VANCOMYCIN 1 GM in NA CHLORIDE 0.9% 250 ML IVPB SCH (03:57)
[2021-07-04] MEDS: NA CHLORIDE 0.9% 1,000 ML IV SCH ×2 (04:37→14:03)
[2021-07-04 05:02] VITALS: BMI 22.4
--- NOTE | 2021-07-04 07:41 | EKG ---
Test Date: 2021-07-04 Test Time: 03:03:12 [employer] Operator: SAM MEASUREMENT RESULTS: Intervals: Rate: 97 MD: 140 QRSD: 86 QT: 342 QTc: 434 [place]: P: 49 MD: 140 QRS: 54 T: 47 INTERPRETIVE STATEMENTS: Normal sinus rhythm Normal ECG No previous ECG available for comparison Electronically Signed On 07-04-21 07:41:13 CDT by Darci Mccray
[2021-07-04] MEDS ORDERED: INFLUENZA VACCINE (for 6+ mo) 0.5 ML DOSE IMVAC ONE (08:00)
[2021-07-04] MEDS: CEFEPIME 1 GM in NA CHLORIDE 0.9% 100 ML IV SCH (08:33)
[2021-07-04] MEDS: ONDANSETRON 4 MG/2 ML VIAL IV PRN ×2 (08:34→14:16)
[2021-07-04] MEDS: MORPHINE 4 MG/ML SYR IV PRN ×3 (08:34→23:25)
[2021-07-04] MEDS: VANCOMYCIN 1.25 GM in NA CHLORIDE 0.9% 250 ML IVPB SCH ×2 (08:34→21:34)
[2021-07-04] MEDS: ENOXAPARIN 40 MG/0.4 ML SQ SCH (09:00)
[2021-07-04 09:33] LABS: Urine Appearance CLEAR (Clear); Urine Bilirubin NEGATIVE (Negative); Urine Blood NEGATIVE (Negative); Urine Color YELLOW (Yellow); Urine Glucose 3+ (Negative); Urine Protein TRACE (Negative); Urine Urobilinogen 0.2 mg/dL (0.2-1.0)
[2021-07-04 09:34] LABS: Urine Microscopic Reflex ORDER UMIC
[2021-07-04 10:01] LABS: Urine Bacteria <20 /HPF (NONE SEEN); Urine RBC <5 /HPF (NONE SEEN)
[2021-07-04] MEDS ORDERED: Ringers Lactate 1,000 ML IV ONE (15:00)
[2021-07-04] MEDS ORDERED: MIDAZOLAM HCL 2 MG/2 ML INJ ONE (15:44)
[2021-07-04] MEDS ORDERED: LIDOCAINE 1% MPF 5 ML VIAL ONE (15:44)
[2021-07-04] MEDS ORDERED: propofoL 200 MG/20 ML VIAL IV ONE (15:44)
[2021-07-04] MEDS ORDERED: FENTANYL CITR 100 MCG/2 ML ONE (15:44)
[2021-07-04] MEDS ORDERED: SODIUM HYPOCHLORITE 0.25% 473 ML ONE (15:59)
[2021-07-04] MEDS ORDERED: LIDOCAINE 1% W/EPI 1:100,000 10 ML VIAL ONE (16:01)
[2021-07-04] MEDS ORDERED: KETOROLAC 30 MG/ML INJ ONE (16:24)
[2021-07-04] MEDS ORDERED: BUPIVACAINE 0.25% PF 10 ML VIAL ONE (16:32)
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
--- NOTE | 2021-07-04 19:58 | RAD REPORT ---
EXAM DESCRIPTION: US - Extremity Venous Uni Ltd - 07/04/2021 3:39 am CLINICAL HISTORY: The patient is 35 years old and is Male; PAIN Extremity Venous Uni Ltd TECHNIQUE: Real-time duplex ultrasound scan of the right lower extremity veins integrating B-mode tw o-dimensional vascular structure, Doppler spectral analysis, color flow Doppler imaging and compressi on. COMPARISON: No relevant prior studies available. FINDINGS: Deep veins: Unremarkable. No DVT in the visualized common femoral, femoral, or poplite al veins. The veins demonstrate normal color flow, are normally compressible where visualized, with normal phasic flow and/or augmentation response. Soft tissues: There is a small fluid collection within the soft tissues in the area of pain. IMPRESSION: No evidence of DVT in the right lower extremity veins. Electronically signed by: Holger Rain MD 07/04/2021 3:22 AM CDT Due to temporary technical issues with the PACS/Fluency reporting system, reports are being signed by the in house radiologists without review as a courtesy to insure prompt reporting. The interpreting radiologist is fully responsible for the content of the report.
[2021-07-04] MEDS ORDERED: VANCOMYCIN 1.25 GM in NA CHLORIDE 0.9% 250 ML IVPB SCH (21:00)
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
[2021-07-05] MEDS: NA CHLORIDE 0.9% 1,000 ML IV SCH ×3 (05:47→20:15)
[2021-07-05] MEDS: MORPHINE 4 MG/ML SYR IV PRN ×4 (05:48→22:42)
[2021-07-05] MEDS ORDERED: NA CHLORIDE 0.9% 250 ML ONE (08:17)
[2021-07-05] MEDS: CEFEPIME 1 GM in NA CHLORIDE 0.9% 100 ML IV SCH (09:08)
[2021-07-05] MEDS: ENOXAPARIN 40 MG/0.4 ML SQ SCH (09:08)
[2021-07-05] MEDS: VANCOMYCIN 1.25 GM in NA CHLORIDE 0.9% 250 ML IVPB SCH ×2 (09:10→22:32)
[2021-07-05] MEDS: SODIUM HYPOCHLORITE 0.25% 473 ML TOP SCH (12:34)
[2021-07-05] MEDS ORDERED: MORPHINE 4 MG/ML SYR IV ONE (15:30)
[2021-07-05 16:09] LABS: Hematocrit 31.9 % (39.6-49.0)
[2021-07-06] MEDS: MORPHINE 4 MG/ML SYR IV PRN ×3 (05:18→17:49)
[2021-07-06] MEDS: SODIUM HYPOCHLORITE 0.25% 473 ML TOP SCH (09:00)
[2021-07-06] MEDS: ENOXAPARIN 40 MG/0.4 ML SQ SCH (09:00)
[2021-07-06] MEDS: NA CHLORIDE 0.9% 1,000 ML IV SCH (09:04)
[2021-07-06] MEDS: HYDROCODONE/APAP 10/325 TAB PO PRN ×3 (09:05→22:00)
[2021-07-06] MEDS: CEFEPIME 1 GM in NA CHLORIDE 0.9% 100 ML IV SCH (09:06)
[2021-07-06] MEDS: VANCOMYCIN 1.5 GM in NA CHLORIDE 0.9% 500 ML IVPB SCH ×2 (11:06→21:11)
[2021-07-06 11:15] LABS: Absolute Lymphocytes (CBC) 1.6 K/uL (0.7-4.9); Hematocrit 30.8 % (39.6-49.0); Lymphocytes % 16.4 % (15.3-44.8); RBC Red Blood Cell Count 3.63 M/uL (4.33-5.43)
[2021-07-06 11:29] LABS: BUN Blood Urea Nitrogen 11 mg/dL (7-18); Bicarbonate 30 mmol/L (21-32); Glucose Level 116 mg/dL (74-106); Sodium Level 134 mmol/L (136-145)
[2021-07-06] MEDS ORDERED: ZOLPIDEM TARTRATE 5 MG TABLET PO PRN (22:38)
[2021-07-07] MEDS: MORPHINE 4 MG/ML SYR IV PRN ×3 (01:40→15:27)
[2021-07-07] MEDS: NA CHLORIDE 0.9% 1,000 ML IV SCH ×3 (01:57→11:57)
[2021-07-07] MEDS: HYDROCODONE/APAP 10/325 TAB PO PRN ×2 (04:00→08:25)
[2021-07-07] MEDS ORDERED: HYDROMORPHONE HCL 1 MG/ML INJ IV ONE (04:49)
[2021-07-07] MEDS: CEFEPIME 1 GM in NA CHLORIDE 0.9% 100 ML IV SCH (08:26)
[2021-07-07] MEDS: SODIUM HYPOCHLORITE 0.25% 473 ML TOP SCH (08:28)
[2021-07-07 08:38] VITALS: O2SAT 100
[2021-07-07] MEDS: VANCOMYCIN 1.5 GM in NA CHLORIDE 0.9% 500 ML IVPB SCH (09:45)
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
[2021-07-07 16:12] VITALS: BP 136/87; TEMP 98
== END 2021-07-07 18:17 | disposition home or self-care (01) | DRG 580 ==
LOC: ER 00:50 → ERHOLD 03:07 → 2ND 03:52
PROVIDERS: ADMIT Hospitalist; ATTEND Hospitalist
PROC: 0JDN0ZZ Extraction of Right Lower Leg Subcutaneous Tissue and Fascia, Open Approach (ICD-10-PCS; principal; 2021-07-04 16:15)
DX: L03.115 Cellulitis of right lower limb (principal); B20 Human immunodeficiency virus [HIV] disease; S81.811A Laceration without foreign body, right lower leg, initial encounter; F17.210 Nicotine dependence, cigarettes, uncomplicated; Z59.00 Homelessness unspecified; Z20.822 Contact with and (suspected) exposure to COVID-19
CPT/HCPCS: 36415; 80048; 80053; 80202; 81003; 81015; 82947; 83605; 85014; 85018; 85025; 85610; 85730; 87040; 87070; 87075; 87077; 87186; 87205; 88304; 93005; 93971; 96365; 96375; 99285; J0692; J1170; J1650; J2250; J2405; J2704; J3010; J3370; J7030; J7040; J7050; J7120; U0003

== ENCOUNTER 2021-07-15 23:01 | Inpatient (IN) | payer OTHER, SELFPAY ==
--- OUTSIDE RECORDS SUMMARY | 2021-07-15 23:06 | XMS REPORT | Continuity of Care Document ---
:1985 Author Organization [facility] t Address [address] [place] [address] Care Team Providers Name Role Phone PCP, DOES NOT HAVE A Primary Care Physician Unavailable Ronal MANZANO, L Attending Clinician Unavailable Yina DALE Attending Clinician Unavailable Yina Dale DO Attending Clinician Vasiliy MANZANO M Attending Clinician Unavailable Doctor Unassigned, Name Attending Clinician Unavailable BRIANA [...] vers abuse abuse 07-14 ity of 00:00: Medical Branch Allergies, Adverse Reactions, Alerts Allergy Allergy Status Severity Reaction(s) Onset Inactive Treating Comm ents Source Name Type Date Date Clinician PENICILL DRUG Active Unknown-Cmnt 2020-04 Un siobhan IN INGREDI 05-10 ity of 00:00: [place] 00 Medical Branch Penicill Propensi Active Unknown - 2020-04 Uni vers in ty to See comments 05-10 ity of adverse 00:00: [place] reaction 00 Medical s Branch NO KNOWN Drug Active Univers ALLERGIE Class ity of S [facility] Social History Social Habit Start Date Stop Date Quantity Comments Source History of tobacco 2002-04-24 Cigarette Smoker University of use 00:00:[address] [facility] Exposure to Not sure University of SARS-CoV-2 (event) [facility] Cigarettes smoked 2017-06-22 2017-06-22 Univers ity of current (pack per 00:00:00 00:00:00 [facility] ) - Reported Branch Alcohol intake 2017-06-22 2017-06-22 0 /d University 00:00:00 00:00:[address] [facility] Sex Ass[birth year] At [birth year] Universit y of 00:00:00 00:00:[address] [facility] Smoking Status Start Date Stop Date Source Current every day smoker 2017-06-22 00:00:[address] [facility] Medications Ordered Filled Start Stop Current Ordering Indication Dosage Frequency Signature Comments Components Source Medication Medication Date Date Medication? Clinician (SIG) Name Name cephALEXin 2021- Yes [id number] 500mg Take 1 Univers (KEFLEX) 3-28 -05 capsule by ity of 500 mg 00:00: 04:59 mouth 4 [place] capsule 00 :00 (four) Medical times [place] daily for 7 days. cephALEXin 2021- Yes [id number] 500mg Take 1 Univers (KEFLEX) 3-28 -05 capsule by ity of 500 mg 00:00: 04:59 mouth 4 [place] capsule 00 :00 (four) Medical times [place] daily for 7 days. ibuprofen 2020-04 Yes [id number] 600mg Take 1 Univers 600 mg 1-28 [id number] tablet by ity of tablet 00:00: mouth [place] 00 every 8 Medical (eight) Branch hours as needed for Pain (scale 4-6). ibuprofen 2020-04 Yes [id number] 600mg Take 1 Univers 600 mg 1-28 [id number] tablet by ity of tablet 00:00: mouth [place] 00 every 8 Medical (eight) Branch hours as needed for Pain (scale 4-6). ibuprofen 2020-04 Yes [id number] 600mg Take 1 Univers 600 mg 1-28 [id number] tablet by ity of tablet 00:00: mouth [place] 00 every 8 Medical (eight) Branch hours as needed for Pain (scale 4-6). ibuprofen 2020-04 Yes [id number] 600mg Take 1 Univers 600 mg 1-28 [id number] tablet by ity of tablet 00:00: mouth [place] 00 every 8 Medical (eight) Branch hours as needed for Pain (scale 4-6). ibuprofen 2020-04 Yes [id number] 600mg Take 1 Univers 600 mg -28 [id number] tablet by ity of tablet 00:00: mouth [place] 00 every 8 Medical (eight) Branch hours as needed for Pain (scale 4-6). ketorolac No 30mg 30 mg, Unive rs (TORADOL) 11-17 08-07 Slow IV ity of injection 05:30: 04:31 Push, [place] 30 mg 00 :00 ONCE, 1 Medical dose, Sat Branch 11/17/20 at 0030, Routine
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 lidocaine Yes 1{spray Apply 1 Un siobhan HCl (BURN 12-18 } [place] to ity of SPRAY, 00:00: area(s) 3 [place] LIDOCAINE,) 00 (three) Medic al 2 % [place] times Branch daily as needed (penile pain). valACYclovi Yes 1g Take 1 Univ ers r 1 gram 9-07 tablet by ity of tablet 00:00: mouth 2 [place] 00 (two) Medical times Branch daily. acetaminoph Yes 1{tbl} Take 1 Un siobhan en-codeine 9-07 tablet by ity of 300-30 mg 00:00: mouth [place] tablet 00 every 12 Medical (twelve) Branch hours as needed for Pain (scale 7-10). lidocaine 2016- Yes 15mL Take 15 mL Un siobhan 2% viscous 12-18 by mouth ity o f 2 % 00:00: every 6 [place] [address] (six) Medical hours as Branch needed for Oral mucosal pain. No known No Univers medications it of [facility] No known No Univers medications it of [facility] Immunizations Ordered Filled Immunization Date Status Comments [facility] e Immunization Name Name Pneumococcal 2016-07-14 Completed University o f Polysaccharide, 00:00:00 [place] Med ical PPSV23 (PNEUMOVAX) Branch Influenza Virus 2016-07-14 Completed Universit y of Vaccine Quad IM 3+ 00:00:00 [facility] Pneumococcal 2016-07-14 Completed University o f Polysaccharide, 00:00:00 [place] Med ical PPSV23 (PNEUMOVAX) Branch Influenza Virus 2016-07-14 Completed Universit y of Vaccine Quad IM 3+ 00:00:00 [facility] Pneumococcal 2016-07-14 Completed University o f Polysaccharide, 00:00:00 [place] Med ical PPSV23 (PNEUMOVAX) Branch Influenza Virus 2016-07-14 Completed Universit y of Vaccine Quad IM 3+ 00:00:00 [facility] Pneumococcal 2016-07-14 Completed University o f Polysaccharide, 00:00:00 [place] Med ical PPSV23 (PNEUMOVAX) Branch Influenza Virus 2016-07-14 Completed Universit y of Vaccine Quad IM 3+ 00:00:00 [facility] Pneumococcal 2016-07-14 Completed University o f Polysaccharide, 00:00:00 [place] Med ical PPSV23 (PNEUMOVAX) Branch Influenza Virus 2016-07-14 Completed Universit y of Vaccine Quad IM 3+ 00:00:00 [facility] Pneumococcal 2016-07-14 Completed University o f Polysaccharide, 00:00:00 [place] Med ical PPSV23 (PNEUMOVAX) Branch Influenza Virus 2016-07-14 Completed Universit y of Vaccine Quad IM 3+ 00:00:00 [facility] Pneumococcal 2016-07-14 Completed University o f Polysaccharide, 00:00:00 [place] Med ical PPSV23 (PNEUMOVAX) Branch Influenza Virus 2016-07-14 Completed Universit y of Vaccine Quad IM 3+ 00:00:00 [facility] Pneumococcal 2016-07-14 Completed University o f Polysaccharide, 00:00:00 [place] Med ical PPSV23 (PNEUMOVAX) Branch Influenza Virus 2016-07-14 Completed Universit y of Vaccine Quad IM 3+ 00:00:00 [facility] Influenza Virus 2015-01-08 Completed Universit y of Vaccine Quad ID 00:00:00 [facility] [age] YRS Branch Pneumococcal 13 2015-01-08 Completed Universit y of Conjugate, PCV13 00:00:00 [facility] dical (Prevnar 13) Branch TDAP (ADACEL) 2015-01-08 Completed University of VACCINE 00:00:[address] [facility] Influenza Virus 2015-01-08 Completed Universit y of Vaccine Quad ID 00:00:00 [facility] 1863 YRS Branch Pneumococcal 13 2015-01-08 Completed Universit y of Conjugate, PCV13 00:00:00 [facility] dical (Prevnar 13) Branch TDAP (ADACEL) 2015-01-08 Completed University of VACCINE 00:00:[address] [facility] Influenza Virus 2015-01-08 Completed Universit y of Vaccine Quad ID 00:00:00 [facility] 1863 [facility] Branch Pneumococcal 13 2015-01-08 Completed Universit y of Conjugate, PCV13 00:00:00 [facility] dical (Prevnar 13) Branch TDAP (ADACEL) 2015-01-08 Completed University of VACCINE 00:00:[address] [facility] Influenza Virus 2015-01-08 Completed Universit y of Vaccine Quad ID 00:00:00 [facility] 1863 [facility] Branch Pneumococcal 13 2015-01-08 Completed Universit y of Conjugate, PCV13 00:00:00 [facility] dical (Prevnar 13) Branch TDAP (ADACEL) 2015-01-08 Completed University of VACCINE 00:00:[address] [facility] Influenza Virus 2015-01-08 Completed Universit y of Vaccine Quad ID 00:00:00 [facility] 1863 [facility] Branch Pneumococcal 13 2015-01-08 Completed Universit y of Conjugate, PCV13 00:00:00 [facility] dical (Prevnar 13) Branch TDAP (ADACEL) 2015-01-08 Completed University of VACCINE 00:00:[address] [facility] Influenza Virus 2015-01-08 Completed Universit y of Vaccine Quad ID 00:00:00 [facility] 1863 [facility] Branch Pneumococcal 13 2015-01-08 Completed Universit y of Conjugate, PCV13 00:00:00 [facility] dical (Prevnar 13) Branch TDAP (ADACEL) 2015-01-08 Completed University of VACCINE 00:00:[address] [facility] Influenza Virus 2015-01-08 Completed Universit y of Vaccine Quad ID 00:00:00 [facility] ical 18-64 YRS Branch Pneumococcal 13 2015-01-08 Completed Universit y of Conjugate, PCV13 00:00:00 [facility] dical (Prevnar 13) Branch TDAP (ADACEL) 2015-01-08 Completed University of VACCINE 00:00:[address] [facility] Influenza Virus 2015-01-08 Completed Universit y of Vaccine Quad ID 00:00:00 [facility] ical 18-64 YRS Branch Pneumococcal 13 2015-01-08 Completed Universit y of Conjugate, PCV13 00:00:00 [facility] dical (Prevnar 13) Branch TDAP (ADACEL) 2015-01-08 Completed University of VACCINE 00:00:[address] [facility] Vital Signs Vital Name Observation Time Observation Value Comments Source Systolic blood 2021-07-08 16:39:00 133 mm[Hg] Univer sity of pressure [facility] Diastolic blood 2021-07-08 16:39:00 83 mm[Hg] Unive rsity of [facility] Heart rate 2021-07-08 16:39:00 107 /min [facility] Respiratory rate 2021-07-08 16:39:00 16 /min [facility] Oxygen saturation in 2021-07-08 16:39:00 100 /min [facility] Arterial blood by [facility] Pulse oximetry Branch Body temperature 2021-07-08 16:36:00 35.94 [facility] height 2021-07-08 13:57:00 182.9 cm [facility] Body weight 2021-07-08 13:57:00 74.844 kg [facility] BMI 2021-07-08 13:57:00 22.38 kg/m2 [facility] Systolic blood 2021-03-10 14:46:00 140 mm[Hg] Univer sity of pressure [facility] Diastolic blood 2021-03-10 14:46:00 100 mm[Hg] Unive rsity of pressure [facility] Heart rate 2021-03-10 14:46:00 98 /min [facility] Body temperature 2021-03-10 14:46:00 36.56 Reanna Univ ersity of [place] [facility] [place] Respiratory rate 2021-03-10 14:46:00 18 /min Univ ersity of [place] [facility] Body height 2021-03-10 14:46:00 182.9 cm Universi ty of [place] [facility] [place] Body weight 2021-03-10 14:46:00 76.658 kg Universi ty of [place] [facility] [place] BMI 2021-03-10 14:46:00 22.92 kg/m2 Universi ty of [facility] Oxygen saturation in 2021-03-10 14:46:00 100 /min University of Arterial blood by [facility] Pulse oximetry Branch Systolic blood 2020-11-17 07:00:00 132 mm[Hg] Univer sity of pressure [facility] Diastolic blood 2020-11-17 07:00:00 92 mm[Hg] Unive rsity of [facility] Heart rate 2020-11-17 07:00:00 74 /min Universi ty of [facility] Respiratory rate 2020-11-17 07:00:00 18 /min Univ ersity of [facility] Oxygen saturation in 2020-11-17 07:00:00 100 /min University of Arterial blood by [facility] Pulse oximetry Branch Body temperature 2020-11-17 06:44:00 36.17 Reanna Univ ersity of [facility] Body height 2020-11-16 23:58:00 182.9 cm Universi ty of [place] [facility] [place] Body weight 2020-11-16 23:58:00 72.576 kg Universi ty of [place] [facility] [place] BMI 2020-11-16 23:58:00 21.70 kg/m2 Universi ty [facility] Procedures Procedure Date / Time Performing Clinician Source Performed NOTICE OF PRIVACY 2021-07-08 13:46:42 Doctor Unassigned, No Univ ersity of [place] PRACTICES Name Medical Branch CONSENT/REFUSAL FOR 2021-07-08 13:38:59 Doctor Unassigned, No Un iversity [facility] DIAGNOSIS AND TREATMENT Name Medical Branch AUTHORIZATION FOR 2021-03-23 06:01:00 Doctor Unassigned, No Univ ersity of [place] RELEASE OF PHI Name Medical Branch XR ANKLE 3+ VW RIGHT 2021-03-10 15:12:24 Guerline Bocanegra [facility] US TESTICULAR TORSION 2020-11-17 05:19:40 [facility] COMP. METABOLIC PANEL 2020-11-17 04:00:00 Andre Garg [facility] ([id number]) Medical [place] CBC WITH DIFF 2020-11-17 04:00:00 Andre Garg [facility] COVID-19 (ID NOW RAPID 2020-11-17 04:00:00 Andre Garg [facility] TESTING) Medical Branch URINALYSIS 2020-11-17 03:59:00 Andre Garg [facility] AUTHORIZATION FOR 2020-07-27 05:01:00 Doctor Unassigned, No [facility] RELEASE OF PHI Name [facility] AUTHORIZATION FOR 2019-12-02 05:01:00 Doctor Unassigned, No [facility] RELEASE OF PHI Name [facility] Encounters Start End Encounter Admission Attending Care Care Encounter Source Date/Time Date/Time Type Type Clinicians Facility Department ID 2021-02-11 Emergency [facility] [id number] Univers 13:47:49 ity [facility] 2021-07-09 2021-07-09 Telephone YAHAIRA Villeda [id number] Univers 00:00:00 00:00:00 [facility] [id number] ity of [facility] 4.2.7.2.686 [facility] [id number] [place] [id number] [place] 2021-07-08 2021-07-08 Emergency [facility] ERT [id number] Univers 08:49:00 11:58:00 FRANCISCA italma [facility] 2021-07-08 2021-07-08 [facility] [id number] Univers 08:49:00 11:58:00 Francisca CRUZ [id number] ity [facility] 4.2.7.2.686 [facility] [id number] [facility] 084 [place] 2021-07-07 2021-07-07 Telephone YAHAIRA Amanda [id number] Univers 00:00:00 00:00:00 Anjali M [facility] [id number] ity of [place] 4[place].2.[place] [id number] [facility] 089 [place] 2021-03-23 2021-03-23 Orders Doctor MILAN [id number] Univers 00:00:00 00:00:00 Only Unassigned, LEXUS [id number] ity of [place] [facility] 4.2.7.2.686 Des as [id number] [facility] 009 [place] 2021-03-11 2021-03-11 [facility] [id number] Univers 09:00:00 09:00:00 SARBJIT [id number] ity [facility] 2021-03-11 2021-03-11 [facility] [id number] Univers 09:00:00 09:00:[facility] 2021-03-10 2021-03-10 [facility] [id number] Univers 08:46:00 09:58:00 [facility] 2021-03-10 2021-03-10 Emergency [facility] [id number] Univers 08:46:00 09:58:00 Guerline CRUZ [id number] i ty [facility] 4.2.7.2.686 [place] [id number] [facility] 084 [place] 2020-12-27 2020-12-27 [facility] [id number] Univers 08:00:00 08:00:00 SARBJIT ity [facility] 2020-12-27 2020-12-27 [facility] [id number] Univers 08:00:00 08:00:00 SARBJIT [id number] [facility] 2020-11-16 2020-11-17 [facility] [id number] Univers 19:04:00 02:29:00 Andre Cruz [id number] ity of [place] 4.2.7.2.686 [facility] [id number] [place] 032884 [place] 2020-07-27 2020-07-27 Orders Doctor MILAN [place]uca.[id number] Univers 00:00:00 00:00:00 Only Unassigned, [place] [id number] ity of [place] [facility] 4.2.7.2.686 Des as [id number] [address] 2020-06-07 2020-06-07 Outpatient [facility] [id number] Univers 10:00:00 10:00:00 [place] [id number] [facility] 2020-06-07 2020-06-07 Outpatient [facility] [id number] Univers 10:00:00 10:00:00 [facility] 2019-12-02 2019-12-02 Orders Doctor MILAN [id number] Univers 00:00:00 00:00:00 Only Unassigned, [place] [id number] [facility] 4.2.7.2.686 Des as [id number] [address] Results Test Description Test Time Test Comments Results Result Comments Source URINALYSIS 2020-11-17 04:30:40 Test Item Value Reference Range Interpretation Comme nts APPEARANCE (test code = Clear Clear 5174868585) COLOR (test code = 7919361736) Yellow Yellow PH (test code = 7989225336) 4.8-8.0 SP GRAVITY (test code = 1.003-1.030 8507496044) GLU U QUAL (test code = Normal Normal 3701870842) BLOOD (test code = 7386985296) Negative Negative KETONES (test code = 3885831466) Negative Negative PROTEIN (test code = 2887-8) Negative Negative UROBILIN (test code = 5443523033) Normal Normal BILIRUBIN (test code = Negative Negative 4920843530) NITRITE (test code = 6328087632) Negative Negative LEUK MADONNA (test code = Negative Negative 6066160530) RBC/HPF (test code = 3611868131) See_Comment [Automated message] The system which ge nerated this result transmit poncho reference range: 0 - 3 HP F. The reference range was not used to interpret th is result as normal/abnormal . WBC/HPF (test code = 8685289183) <1 See_Comment [Automated message] The system which ge nerated this result transmit poncho reference range: 0 - 5 HP F. The reference range was not used to interpret th is result as normal/abnormal . BACTERIA (test code = 3482248414) Few Negative A Lab Interpretation (test code = Abnormal 32138-6) [facility]ID [facility]2020-11-17 04:24:47 Test Item Value Reference Range Interpretation Comments SARS-CoV-2 Rapid ID NOW Not Detected Not Detected (test code = 32749-4) ALISE (test code = ALISE) ID NOW COVID-19 Assay is an isothermal nucleic acid amplification test intended for the qualitative detection of nucleic acid from SARS-CoV-2 viral RNA in nasopharyngeal (DIRECTOR MEDICAL SURGICAL) specimens. It is used under Emergency Use [...] indicated. Lab Interpretation Normal (test code = 63462-3) [facility]. METABOLIC PANEL (35533)2020-11-17 04:22:11 Test Item Value Reference Range Interpretation Comments NA (test code = 138 mmol/L 135-145 4847657363) K (test code = 4.0 mmol/L 3.5-5.0 9593330281) CL (test code = 98 mmol/L 98-108 1327362286) CO2 TOTAL (test code = 30 mmol/L 23-31 7642871396) AGAP (test code = 2-16 6700791661) BUN (test code = 13 mg/dL 7-23 9707700170) GLUCOSE (test code = 83 mg/dL 70-110 3170123183) CREATININE (test code = 0.98 mg/dL 0.60-1.25 0426835852) TOTAL BILI (test code = 0.5 mg/dL 0.1-1.4 3665733581) CALCIUM (test code = 9.9 mg/dL 8.6-10.6 6929575192) T PROTEIN (test code = 9.5 g/dL 6.3-8.2 H 0833770352) ALBUMIN (test code = 4.9 g/dL 3.5-5.0 2057254809) ALK PHOS (test code = 100 U/L 34-122 4473408903) ALTv (test code = 55 U/L 5-50 H 1742-6) AST(SGOT) (test code = 48 U/L 13-40 H 8143998198) eGFR (test code = mL/min/1.73m2 7198241106) ALISE (test code = ALISE) Association of [...] tests). Lab Interpretation Abnormal (test code = 71862-8) [facility] WITH [id number] 04:18:30 Test Item Value Reference Range Interpretation Comments WBC (test code = See_Comment [Automated 6690-2) message] The sy stem which generated this result transmitted reference range : 4.20 - 10.70 10*3/?L. The reference range was not used to interpret this result as normal/abnormal . RBC (test code = See_Comment [Automated 789-8) message] The sy stem which generated this [...] RDW-SD (test code = 46.1 fL 38.5-51.6 86584-0) RDW-CV (test code = 14.6 % 12.1-15.4 788-0) PLT (test code = See_Comment H [Automated 777-3) message] The sy stem which generated this result transmitted reference range : 150 - 328 10*3/ ?L. The reference r sheree was not used to interpret this result as normal/abnormal . MPV (test code = 9.7 fL 9.8-13.0 L 75718-0) NRBC/100 WBC (test See_Comment [Automat ed code = 8297761532) message] The system which generated this result transmitted reference range : 0.0 - 10.0 /100 WBCs. The refer ence range was not u sed to interpret th is result as normal/abnormal . NRBC x10^3 (test code <0.01 See_Comment [Auto mated = 9920107371) message] The s ystem which generated this result transmitted reference range : 10*3/?L. The reference range was not used to interpret this result as normal/abnormal . GRAN MAT (NEUT) % 48.7 % (test code = 770-8) IMM GRAN % (test code 0.50 % = 3514998538) LYMPH % (test code = 39.7 % 736-9) MONO % (test code = 9.0 % 5905-5) EOS % (test code = 1.5 % 713-8) BASO % (test code = 0.6 % 706-2) GRAN MAT x10^3(ANC) 4.23 10*3/uL 1.99-6.95 (test code = 9230820305) IMM GRAN x10^3 (test 0.04 10*3/uL 0.00-0.06 code = 0022078778) LYMPH x10^3 (test code 3.44 10*3/uL 1.09-3.23 H = 731-0) MONO x10^3 (test code 0.78 10*3/uL 0.36-1.02 = 742-7) EOS x10^3 (test code = 0.13 10*3/uL 0.06-0.53 711-2) BASO x10^3 (test code 0.05 10*3/uL 0.01-0.09 = 704-7) Lab Interpretation Abnormal (test code = 46364-3) [facility]"
[2021-07-15] MEDS ORDERED: CEFAZOLIN SODIUM 1 GM/VIAL ONE (23:52)
[2021-07-15] MEDS ORDERED: FENTANYL CITR 100 MCG/2 ML ONE (23:57)
[2021-07-15] MEDS ORDERED: NA CHLORIDE 0.9% 1,000 ML ONE (23:58)
[2021-07-15] MEDS ORDERED: NA CHLORIDE 0.9% 100 ML IV ONE (23:58)
[2021-07-15] MEDS ORDERED: ONDANSETRON 4 MG/2 ML VIAL ONE (23:58)
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
[2021-07-16] MEDS ORDERED: SUCCINYLCHOLINE 20 MG/ML (10 ML) IV ONE (00:51)
[2021-07-16] MEDS ORDERED: LIDOCAINE 2% MPF 5 ML VIAL ONE (00:53)
[2021-07-16] MEDS ORDERED: FENTANYL CITR 100 MCG/2 ML ONE ×2 (00:53→02:49)
[2021-07-16] MEDS ORDERED: propofoL 200 MG/20 ML VIAL IV ONE (00:53)
[2021-07-16] MEDS ORDERED: Phenylephrine HCl 10 MG/ML 1 ML VIAL ONE (00:55)
[2021-07-16] MEDS ORDERED: HALOPERIDOL LACT 5 MG/ML INJ ONE (00:57)
[2021-07-16] MEDS ORDERED: TETANUS & DIPHTHERIA TOX,ADULT 0.5 ML VIAL ONE (01:02)
[2021-07-16 01:06] LABS: Absolute Lymphocytes (CBC) 1.7 K/uL (0.7-4.9); Hematocrit 21.4 % (39.6-49.0); Lymphocytes % 20.3 % (15.3-44.8); MPV 6.2 fL (7.6-11.3); RBC Red Blood Cell Count 2.52 M/uL (4.33-5.43)
[2021-07-16 01:12] LABS: Protime INR 1.31
[2021-07-16 01:22] LABS: Albumin 2.8 g/dL (3.4-5.0); Bilirubin Total 0.2 mg/dL (0.2-1.0); Potassium 3.3 mmol/L (3.5-5.1); Protein, Total 7.2 g/dL (6.4-8.2)
[2021-07-16] MEDS ORDERED: Ringers Lactate 1,000 ML IV ONE ×2 (01:34→02:43)
[2021-07-16] MEDS ORDERED: ONDANSETRON 4 MG/2 ML VIAL ONE (01:50)
[2021-07-16] MEDS ORDERED: KETOROLAC 30 MG/ML INJ ONE (01:50)
[2021-07-16] MEDS ORDERED: dexAMETHasone 10 MG/ML VIAL ONE (01:50)
[2021-07-16] MEDS ORDERED: ROCURONIUM 50 MG/5 ML VIAL IV ONE (01:55)
[2021-07-16] MEDS ORDERED: ACETAMINOPHEN 325 MG TABLET PO PRN (02:42)
[2021-07-16] MEDS ORDERED: ONDANSETRON 4 MG/2 ML VIAL IV PRN (02:42)
[2021-07-16] MEDS ORDERED: MORPHINE 4 MG/ML SYR IV PRN (02:42)
[2021-07-16] MEDS: NA CHLORIDE 0.9% 1,000 ML IV SCH ×3 (02:42→17:02)
--- NOTE | 2021-07-16 02:56 | P.OP ---
Preoperative diagnosis: RIGHT Lower Leg Active Bleeding Postoperative diagnosis: RIGHT Lower Leg Active Bleeding Primary procedure: Exploration of RIGHT LE Wound Secondary procedure: Ligation of multiple muscular arterial bleeding vessels Other procedure(s): Debridement of necrotic muscle / tissue Anesthesia: GETA Estimated blood loss: 100 cc Specimen: Debridement tissue / Clot Findings: Necrotic tissue extending to all compartments, bleeding arterial vessels Transferred to: Recovery Room Condition: Good
[2021-07-16] MEDS ORDERED: HYDROMORPHONE HCL 1 MG/ML INJ IV PRN (03:12)
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
[2021-07-16] MEDS: D5.45NS W/KCL 20MEQ 1,000 ML IV SCH ×2 (04:00→14:00)
[2021-07-16 04:32] LABS: MPV 6.5 fL (7.6-11.3); RBC Red Blood Cell Count 2.32 M/uL (4.33-5.43)
[2021-07-16 04:34] LABS: Hematocrit 19.7 % (39.6-49.0)
[2021-07-16] MEDS ORDERED: DIPHENHYDRAMINE 50 MG/ML VIAL IV ONE (04:42)
[2021-07-16] MEDS ORDERED: NA CHLORIDE 0.9% 250 ML IV SCH (05:00)
[2021-07-16] MEDS ORDERED: CEFAZOLIN 1 GM in NA CHLORIDE 0.9% 50 ML IVPB SCH (06:00)
[2021-07-16] MEDS ORDERED: ACETAMINOPHEN 325 MG TABLET ONE (06:07)
[2021-07-16] MEDS ORDERED: DIPHENHYDRAMINE 50 MG/ML VIAL ONE (06:07)
[2021-07-16] MEDS ORDERED: NA CHLORIDE 0.9% 250 ML ONE (06:08)
[2021-07-16] MEDS: INSULIN -REGULAR HUMAN 50 UNIT/0.5 ML ML SQ SCH ×4 (07:30→20:31)
[2021-07-16] MEDS: PIPER TAZO 3.375 GM in NA CHLORIDE 0.9% 100 ML IV SCH ×2 (09:00→16:55)
[2021-07-16] MEDS: CALCIUM CARB 500MG/VIT D 200 IU TAB PO SCH (09:00)
[2021-07-16] MEDS ORDERED: NA CHLORIDE 0.9% 100 ML IV ONE (11:47)
[2021-07-16] MEDS ORDERED: PIPERACIL/TAZO 3.375 GM VIAL IV ONE (11:47)
[2021-07-16 11:55] LABS: Urine Blood 1+ (Negative); Urine Glucose Negative (Negative); Urine Protein Negative (Negative); Urine Specific Gravity >=1.030 (1.005-1.030)
--- NOTE | 2021-07-16 15:03 | RAD REPORT ---
EXAM DESCRIPTION: RAD - Tib Fib Right - 07/15/2021 11:53 pm CLINICAL HISTORY: 35 years Male, Pain;Swelling;Weakness COMPARISON: Right tibia/fibular radiographs June 30, 2021. FINDINGS: No evidence of an acute fracture of the right tibia or fibula. Soft tissue defect of the lateral right lower extremity noted. No obvious radiopaque foreign body. IMPRESSION: No evidence of an acute fracture of the right tibia or fibula. Electronically signed by: Rafael Chery MD 07/16/2021 12:12 AM CDT Due to temporary technical issues with the PACS/Fluency reporting system, reports are being signed by the in house radiologists without review as a courtesy to insure prompt reporting. The interpreting radiologist is fully responsible for the content of the report.
[2021-07-17] MEDS: D5.45NS W/KCL 20MEQ 1,000 ML IV SCH ×3 (01:00→20:37)
[2021-07-17] MEDS: PIPER TAZO 3.375 GM in NA CHLORIDE 0.9% 100 ML IV SCH ×3 (01:01→17:37)
[2021-07-17 01:13] VITALS: BMI 3222.1
[2021-07-17] MEDS: NA CHLORIDE 0.9% 1,000 ML IV SCH ×3 (02:42→18:42)
[2021-07-17] MEDS: HYDROMORPHONE HCL 1 MG/ML INJ IV PRN ×4 (02:55→20:37)
[2021-07-17] MEDS: INSULIN -REGULAR HUMAN 50 UNIT/0.5 ML ML SQ SCH ×4 (07:30→20:42)
[2021-07-17] MEDS ORDERED: POTASSIUM CL SA 10 MEQ TAB PO ONE (07:56)
[2021-07-17] MEDS: CALCIUM CARB 500MG/VIT D 200 IU TAB PO SCH (08:29)
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
[2021-07-17] MEDS: HYDROCODONE/APAP 7.5/325 MG TAB PO PRN (22:33)
[2021-07-18] MEDS: PIPER TAZO 3.375 GM in NA CHLORIDE 0.9% 100 ML IV SCH ×3 (01:38→17:14)
[2021-07-18] MEDS: HYDROMORPHONE HCL 1 MG/ML INJ IV PRN ×3 (01:39→18:28)
[2021-07-18] MEDS: NA CHLORIDE 0.9% 1,000 ML IV SCH ×3 (02:42→17:27)
[2021-07-18] MEDS: HYDROCODONE/APAP 7.5/325 MG TAB PO PRN ×3 (06:14→20:50)
[2021-07-18] MEDS: D5.45NS W/KCL 20MEQ 1,000 ML IV SCH ×2 (06:15→17:12)
[2021-07-18] MEDS: INSULIN -REGULAR HUMAN 50 UNIT/0.5 ML ML SQ SCH ×4 (07:30→21:00)
[2021-07-18 08:40] LABS: Absolute Lymphocytes (CBC) 2.5 K/uL (0.7-4.9); Hematocrit 25.4 % (39.6-49.0); Lymphocytes % 34.1 % (15.3-44.8); MPV 6.2 fL (7.6-11.3); RBC Red Blood Cell Count 2.94 M/uL (4.33-5.43)
[2021-07-18] MEDS: CALCIUM CARB 500MG/VIT D 200 IU TAB PO SCH (09:00)
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
[2021-07-18] MEDS: SODIUM HYPOCHLORITE 0.5% 473 ML TOP SCH (20:51)
[2021-07-18] MEDS: MORPHINE 2 MG/ML SYR IV PRN (23:22)
[2021-07-19] MEDS: PIPER TAZO 3.375 GM in NA CHLORIDE 0.9% 100 ML IV SCH ×2 (00:19→09:01)
[2021-07-19] MEDS: NA CHLORIDE 0.9% 1,000 ML IV SCH (02:42)
[2021-07-19 04:54] VITALS: O2SAT 100
[2021-07-19] MEDS: MORPHINE 2 MG/ML SYR IV PRN ×2 (04:55→09:02)
[2021-07-19] MEDS: INSULIN -REGULAR HUMAN 50 UNIT/0.5 ML ML SQ SCH ×2 (07:30→11:30)
[2021-07-19] MEDS: CALCIUM CARB 500MG/VIT D 200 IU TAB PO SCH (09:01)
[2021-07-19 12:22] VITALS: BP 115/81; TEMP 98
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
[2021-07-19] MEDS: SODIUM HYPOCHLORITE 0.5% 473 ML TOP SCH (13:56)
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
== END 2021-07-19 16:00 | disposition home or self-care (01) | DRG 264 ==
LOC: ER 23:01 → ERHOLD 07-16 00:17 → OBSVTOIN 07-16 12:57 → 2ND 07-16 14:42
PROVIDERS: ADMIT Surgery; ATTEND Surgery
PROC: 0Y3H0ZZ Control Bleeding in Right Lower Leg, Open Approach (ICD-10-PCS; 2021-07-16)
PROC: 30233N1 Transfusion of Nonautologous Red Blood Cells into Peripheral Vein, Percutaneous Approach (ICD-10-PCS; 2021-07-16)
PROC: 0KDS0ZZ Extraction of Right Lower Leg Muscle, Open Approach (ICD-10-PCS; principal; 2021-07-16 01:00)
DX: I96 Gangrene, not elsewhere classified (principal); L03.115 Cellulitis of right lower limb; Z59.00 Homelessness unspecified; F15.90 Other stimulant use, unspecified, uncomplicated; F17.210 Nicotine dependence, cigarettes, uncomplicated; Z21 Asymptomatic human immunodeficiency virus [HIV] infection status; Z20.822 Contact with and (suspected) exposure to COVID-19
CPT/HCPCS: 36415; 36430; 80053; 80320; 81003; 82947; 85018; 85025; 85027; 85610; 86850; 86900; 86901; 88304; 90471; 90714; 94010; 94760; 96374; 96375; 99284; G0378; J0330; J0690; J1100; J1170; J1200; J1630; J2270; J2370; J2405; J2543; J2704; J3010; J7030; J7050; J7120; P9016; U0003

== ENCOUNTER 2021-09-12 16:06 | Emergency (ER) | payer SELFPAY ==
--- OUTSIDE RECORDS SUMMARY | 2021-09-12 16:09 | XMS REPORT | Continuity of Care Document ---
:1985 Author Organization [facility] t Address [address] [place] [address] Care Team Providers Name Role Phone PCP, DOES NOT HAVE A Primary Care Physician Unavailable Ronal MANZANO, L Attending Clinician Unavailable Yina DALE Attending Clinician Unavailable Yina Dale DO Attending Clinician Vasiliy MANZANO M Attending Clinician Unavailable Doctor Unassigned, Name Attending Clinician Unavailable BRIANA Attending Clinician Unavailable RODOLFO Attending Clinician Unavailable Rodolfo KEEN Attending Clinician Inés Aguilar MD Attending Clinician ROMEO Attending Clinician Unavailable RODOLFO Rockitting Clinician Unavailable Payers Payer Name Policy Type [...] vers abuse abuse 07-14 ity of 00:00: 00 Medical Branch Allergies, Adverse Reactions, Alerts Allergy [...] Active Univers ALLERGIE Class ity of [facility] Social History Social Habit Start Date Stop Date Quantity Comments Source History of tobacco 2002-04-24 Cigarette Smoker University of use 00:00:00 [facility] Exposure to Not sure University of SARS-CoV-2 (event) [facility] Cigarettes smoked 2017-06-22 2017-06-22 Univers ity of current (pack per 00:00:00 00:00:00 [facility] ) - Reported Branch Alcohol intake 2017-06-22 2017-06-22 0 /d University 00:00:00 00:00:00 [facility] Sex [birth year] At [birth year] Universit y of 00:00:00 00:00:00 [facility] Smoking Status Start Date Stop Date Source Current every day smoker 2017-06-22 00:00:00 Uni versity of [facility] Medications Ordered Filled Start Stop Current Ordering Indication Dosage Frequency Signature Comments Components Source Medication Medication Date Date Medication? Clinician (SIG) Name Name cephALEXin 2021- Yes [id number] 500mg Take 1 Univers (KEFLEX) 3-28 -05 capsule by ity of 500 mg 00:00: 04:59 mouth 4 [place] capsule 00 :00 (four) Medical times [facility] daily for 7 days. cephALEXin 2021- Yes [id number] 500mg Take 1 Univers (KEFLEX) 3-28 -05 capsule by ity of 500 mg 00:00: 04:59 mouth 4 [place] capsule 00 :00 (four) Medical times [facility] daily for 7 days. ibuprofen 2020-04 Yes [id number] 600mg Take 1 Univers 600 mg 1-28 [id number] tablet by ity of tablet 00:00: mouth [place] 00 every 8 Medical (eight) Branch hours as needed for Pain (scale 4-6). ibuprofen 2020-04 Yes [id number] 600mg Take 1 Univers 600 mg 1-28 [id number] tablet by ity of tablet 00:00: mouth [place] 00 every 8 Medical (eight) Branch hours as needed for Pain (scale 4-6). ibuprofen 2020-04 Yes [id number] 600mg Take 1 Univers 600 mg 1-28 [id number] tablet by ity of tablet 00:00: mouth [place] 00 every 8 Medical (eight) Branch hours as needed for Pain (scale 4-6). ibuprofen 2020-04 Yes [id number] 600mg Take 1 Univers 600 mg 1-28 [id number] tablet by ity of tablet 00:00: mouth [place] 00 every 8 Medical (eight) Branch hours as needed for Pain (scale 4-6). ibuprofen 2020-04 Yes [id number] 600mg Take 1 Univers 600 mg 1-28 [id number] tablet by ity of tablet 00:00: mouth [place] 00 every 8 Medical (eight) Branch hours as needed for Pain (scale 4-6). ketorolac 2020- No 30mg 30 mg, Unive rs (TORADOL) 11-17 08-07 Slow IV ity of injection 05:30: 04:31 Push, [place] 30 mg 00 :00 ONCE, 1 Medical dose, Sat Branch 11/17/20 at 0030, Routine
faculty member approving Restricted medication : ANDRE AGUILAR elviteg-cob Yes 1{tbl} Take 1 Un siobhan [...] 1 Un siobhan HCl (BURN 12-18 } [place] to ity of SPRAY, 00:00: area(s) 3 [place] LIDOCAINE,) 00 (three) Medic al 2 % [place] times Branch daily as needed (penile pain). valACYclovi Yes 1g Take 1 Univ ers r 1 gram 9-07 tablet by ity of tablet 00:00: mouth 2 [place] 00 (two) Medical times Branch daily. acetaminoph Yes 1{tbl} Take 1 Un siobhan en-codeine -07 tablet by ity of 300-30 mg 00:00: mouth [place] tablet 00 every 12 Medical (twelve) Branch hours as needed for Pain (scale 7-10). lidocaine 2016- Yes 15mL Take 15 mL Un siobhan 2% viscous 12-18 by mouth ity o f 2 % 00:00: every 6 [place] [id number] (six) Medical hours as Branch needed for Oral mucosal pain. No known No Univers medications it of [facility] No known No Univers medications it of [facility] Immunizations Ordered Filled Immunization Date Status Comments [facility] e Immunization Name Name Pneumococcal 2016-07-14 Completed University o f Polysaccharide, 00:00:00 [place] Med ical PPSV23 (PNEUMOVAX) Branch Influenza Virus 2016-07-14 Completed Universit y of Vaccine Quad IM 3+ 00:00:00 [facility] Pneumococcal 2016-07-14 Completed University o f Polysaccharide, 00:00:00 [place] Med ical PPSV23 (PNEUMOVAX) Branch Influenza Virus 2016-07-14 Completed Universit y of Vaccine Quad IM 3+ 00:00:00 [facility] Pneumococcal 2016-07-14 Completed University o f Polysaccharide, 00:00:00 [place] Med ical PPSV23 (PNEUMOVAX) Branch Influenza Virus 2016-07-14 Completed Universit y of Vaccine Quad IM 3+ 00:00:00 [facility] Pneumococcal 2016-07-14 Completed University o f Polysaccharide, 00:00:00 [place] Med ical PPSV23 (PNEUMOVAX) Branch Influenza Virus 2016-07-14 Completed Universit y of Vaccine Quad IM 3+ 00:00:00 [facility] Pneumococcal 2016-07-14 Completed University o f Polysaccharide, 00:00:00 [place] Med ical PPSV23 (PNEUMOVAX) Branch Influenza Virus 2016-07-14 Completed Universit y of Vaccine Quad IM 3+ 00:00:00 [facility] Pneumococcal 2016-07-14 Completed University o f Polysaccharide, 00:00:00 [place] Med ical PPSV23 (PNEUMOVAX) Branch Influenza Virus 2016-07-14 Completed Universit y of Vaccine Quad IM 3+ 00:00:00 [facility] Pneumococcal 2016-07-14 Completed University o f Polysaccharide, 00:00:00 [place] Med ical PPSV23 (PNEUMOVAX) Branch Influenza Virus 2016-07-14 Completed Universit y of Vaccine Quad IM 3+ 00:00:00 [facility] Pneumococcal 2016-07-14 Completed University o f Polysaccharide, 00:00:00 [place] Med ical PPSV23 (PNEUMOVAX) Branch Influenza Virus 2016-07-14 Completed Universit y of Vaccine Quad IM 3+ 00:00:00 [facility] Influenza Virus 2015-01-08 Completed Universit y of Vaccine Quad ID 00:00:00 [facility] [address] [facility] Branch Pneumococcal 13 2015-01-08 Completed Universit y of Conjugate, PCV13 00:00:00 [facility] dical (Prevnar 13) Branch TDAP (ADACEL) 2015-01-08 Completed University of VACCINE 00:00:00 [facility] Influenza Virus 2015-01-08 Completed Universit y of Vaccine Quad ID 00:00:00 [facility] [address] [facility] Branch Pneumococcal 13 2015-01-08 Completed Universit y of Conjugate, PCV13 00:00:00 [facility] dical (Prevnar 13) Branch TDAP (ADACEL) 2015-01-08 Completed University of VACCINE 00:00:00 [facility] Influenza Virus 2015-01-08 Completed Universit y of Vaccine Quad ID 00:00:00 [facility] [address] [facility] Branch Pneumococcal 13 2015-01-08 Completed Universit y of Conjugate, PCV13 00:00:00 [facility] dical (Prevnar 13) Branch TDAP (ADACEL) 2015-01-08 Completed University of VACCINE 00:00:00 [facility] Influenza Virus 2015-01-08 Completed Universit y of Vaccine Quad ID 00:00:00 [facility] [address] [facility] Branch Pneumococcal 13 2015-01-08 Completed Universit y of Conjugate, PCV13 00:00:00 [facility] dical (Prevnar 13) Branch TDAP (ADACEL) 2015-01-08 Completed University of VACCINE 00:00:00 [facility] Influenza Virus 2015-01-08 Completed Universit y of Vaccine Quad ID 00:00:00 [facility] [address] [facility] Branch Pneumococcal 13 2015-01-08 Completed Universit y of Conjugate, PCV13 00:00:00 [facility] dical (Prevnar 13) Branch TDAP (ADACEL) 2015-01-08 Completed University of VACCINE 00:00:00 [facility] Influenza Virus 2015-01-08 Completed Universit y of Vaccine Quad ID 00:00:00 [facility] [address] [facility] Branch Pneumococcal 13 2015-01-08 Completed Universit y of Conjugate, PCV13 00:00:00 [facility] dical (Prevnar 13) Branch TDAP (ADACEL) 2015-01-08 Completed University of VACCINE 00:00:00 [facility] Influenza Virus 2015-01-08 Completed Universit y of Vaccine Quad ID 00:00:00 [facility] ical 18-64 YRS Branch Pneumococcal 13 2015-01-08 Completed Universit y of Conjugate, PCV13 00:00:00 [facility] dical (Prevnar 13) Branch TDAP (ADACEL) 2015-01-08 Completed University of VACCINE 00:00:00 [facility] Influenza Virus 2015-01-08 Completed Universit y of Vaccine Quad ID 00:00:00 [facility] ical 18-64 YRS Branch Pneumococcal 13 2015-01-08 Completed Universit y of Conjugate, PCV13 00:00:00 [facility] dical (Prevnar 13) Branch TDAP (ADACEL) 2015-01-08 Completed University of VACCINE 00:00:00 [facility] Vital Signs Vital Name Observation Time Observation Value Comments Source Systolic blood 2021-07-08 16:39:00 133 mm[Hg] Univer sity of pressure [facility] Diastolic blood 2021-07-08 16:39:00 83 mm[Hg] Unive rsity of [facility] Heart rate 2021-07-08 16:39:00 107 /min [facility] Respiratory rate 2021-07-08 16:39:00 16 /min [facility] Oxygen saturation in 2021-07-08 16:39:00 100 /min [facility] Arterial blood by [facility] Pulse oximetry Branch Body temperature 2021-07-08 16:36:00 35.94 Reanna [facility] Body height 2021-07-08 13:57:00 182.9 cm [facility] Body weight 2021-07-08 13:57:00 74.844 kg [facility] BMI 2021-07-08 13:57:00 22.38 kg/m2 [facility] Systolic blood 2021-03-10 14:46:00 140 mm[Hg] Univer sity of pressure [facility] Diastolic blood 2021-03-10 14:46:00 100 mm[Hg] Unive rsity of [facility] Heart rate 2021-03-10 14:46:00 98 /min [facility] Body temperature 2021-03-10 14:46:00 36.56 Reanna [facility] ersity of [place] [facility] Respiratory rate 2021-03-10 14:46:00 18 /min Univ ersity of [place] [facility] Body height 2021-03-10 14:46:00 182.9 cm Universi ty of [place] [facility] Body weight 2021-03-10 14:46:00 76.658 kg Universi ty of [place] Medical [facility] BMI 2021-03-10 14:46:00 22.92 kg/m2 Universi ty of [facility] Oxygen saturation in 2021-03-10 14:46:00 100 /min University of Arterial blood by [facility] Pulse oximetry Branch Systolic blood 2020-11-17 07:00:00 132 mm[Hg] Univer sity of pressure [place] Medical [facility] Diastolic blood 2020-11-17 07:00:00 92 mm[Hg] [facility] Heart rate 2020-11-17 07:00:00 74 /min Universi ty of [place] [facility] Respiratory rate 2020-11-17 07:00:00 18 /min [facility] ersity of [facility] Oxygen saturation in 2020-11-17 07:00:00 100 /min University of Arterial blood by [facility] Pulse oximetry Branch Body temperature 2020-11-17 06:44:00 36.17 Reanna [facility] ersity of [place] Medical [facility] Body height 2020-11-16 23:58:00 182.9 cm Universi ty of [place] [facility] Body weight 2020-11-16 23:58:00 72.576 kg Universi ty of [place] [facility] BMI 2020-11-16 23:58:00 21.70 kg/m2 Universi ty of [place] [facility] Procedures Procedure Date / Time Performing Clinician Source Performed NOTICE OF PRIVACY 2021-07-08 13:46:42 Doctor Unassigned, No Univ ersity of [place] PRACTICES Name Medical Branch CONSENT/REFUSAL FOR 2021-07-08 13:38:59 Doctor Unassigned, No Un iversity [facility] DIAGNOSIS AND TREATMENT Name Medical Branch AUTHORIZATION FOR 2021-03-23 06:01:00 Doctor Unassigned, No Univ ersity [facility] RELEASE OF PHI Name Medical Branch XR ANKLE 3+ VW RIGHT 2021-03-10 15:12:24 Guerline Reynolds Univers ity of [place] [facility] US TESTICULAR TORSION 2020-11-17 05:19:40 Andre Aguilar [facility] COMP. METABOLIC PANEL 2020-11-17 04:00:00 Andre Aguilar [facility] ([id number]) Medical Branch CBC WITH DIFF 2020-11-17 04:00:00 Andre Aguilar [facility] COVID-19 (ID NOW RAPID 2020-11-17 04:00:00 Andre Aguilar [facility] TESTING) Medical Branch URINALYSIS 2020-11-17 03:59:00 Andre Aguilar [facility] AUTHORIZATION FOR 2020-07-27 05:01:00 Doctor Unassigned, No [facility] RELEASE OF PHI Name [facility] Branch AUTHORIZATION FOR 2019-12-02 05:01:00 Doctor Unassigned, No [facility] RELEASE OF PHI Name Medical [facility] Encounters Start End Encounter Admission Attending Care Care Encounter Source Date/Time Date/Time Type Type Clinicians Facility Department ID 2021-02-11 Emergency [facility] [id number] Univers 13:47:49 ity of [facility] 2021-07-09 2021-07-09 Telephone YAHAIRA Villeda [id number] Univers 00:00:00 00:00:00 [facility] [id number] [facility] [id number] [facility] [phone] [address] 2021-07-08 2021-07-08 Emergency [facility] [id number] Univers 08:49:00 11:58:00 FRANCISCA ity of [facility] 2021-07-08 2021-07-08 Emergency [facility] [id number] Univers 08:49:00 11:58:00 Francisca CHAVEZ [id number] ity [facility] [id number] [facility] [id number] [place] 054184 [facility] 2021-07-07 2021-07-07 Telephone YAHAIRA Amanda [id number] Univers 00:00:00 00:00:00 Anjali Che [facility] [id number] ity of [place] [id number] [facility] 089 Branch 2021-03-23 2021-03-23 Orders Doctor MILAN [id number] Univers 00:00:00 00:00:00 Only Unassigned, LEXUS [id number] ity of [place] [facility] 4.2.7.2.686 Des as [id number] [facility] 009 Branch 2021-03-11 2021-03-11 [facility] [id number] N-20 Univers 09:00:00 09:00:00 SARBJIT [id number] ity [facility] 2021-03-11 2021-03-11 Outpatient [facility] [id number] Univers 09:00:00 09:00:00 SARBJIT ity [facility] 2021-03-10 2021-03-10 [facility] [id number] Univers 08:46:00 09:58:00 [facility] 2021-03-10 2021-03-10 Emergency [facility] [id number] Univers 08:46:00 09:58:00 Guerline CHAVEZ 350.1.13.10 i ty of [place].2.686 [place] [facility] [id number] [facility] 084 [facility] 2020-12-27 2020-12-27 Outpatient [facility] [id number] Univers 08:00:00 08:00:00 SARBJIT ity [facility] 2020-12-27 2020-12-27 Outpatient [facility] [id number] N-20 Univers 08:00:00 08:00:00 SARBJIT [id number] ity [facility] 2020-11-16 2020-11-17 [facility] [id number] Univers 19:04:00 02:29:00 Andre Chavez [id number] ity of [place] 4.2.7.2.686 [place] [facility] [id number] [place] 0[address]184 [facility] 2020-07-27 2020-07-27 Orders Doctor MILAN [place].[id number] Univers 00:00:00 00:00:00 Only Unassigned, LEXUS [id number] ity of [place] [facility] 4.2.7.2.686 Des as [id number] [address] 2020-06-07 2020-06-07 Outpatient [facility] [id number] Univers 10:00:00 10:00:00 ROCHELLE [id number] [facility] 2020-06-07 2020-06-07 Outpatient [facility] [id number] Univers 10:00:00 10:00:00 [facility] 2019-12-02 2019-12-02 Orders Doctor MILAN [id number] Univers 00:00:00 00:00:00 Only Unassigned, LEXUS [id number] ity of [place] [facility] 4.2.7.2.686 Des as [id number] [address] Results Test Description Test Time Test Comments Results Result Comments Source URINALYSIS 2020-11-17 04:30:40 Test Item Value Reference Range Interpretation Comme nts APPEARANCE (test code = Clear Clear 0311257384) COLOR (test code = 5017133430) Yellow Yellow PH (test code = 1252614935) 4.8-8.0 SP GRAVITY (test code = 1.003-1.030 8075703400) GLU U QUAL (test code = Normal Normal 2366364356) BLOOD (test code = 0926536815) Negative Negative KETONES (test code = 9126967895) Negative Negative PROTEIN (test code = 2887-8) Negative Negative UROBILIN (test code = 9075052961) Normal Normal BILIRUBIN (test code = Negative Negative 1068284354) NITRITE (test code = 7615884899) Negative Negative LEUK MADONNA (test code = Negative Negative 4596211852) RBC/HPF (test code = 5826064467) See_Comment [Automated message] The system which ge nerated this result transmit poncho reference range: 0 - 3 HP F. The reference range was not used to interpret th is result as normal/abnormal . WBC/HPF (test code = 1151914278) <1 See_Comment [Automated message] The system which ge nerated this result transmit poncho reference range: 0 - 5 HP F. The reference range was not used to interpret th is result as normal/abnormal . BACTERIA (test code = 0882962189) Few Negative A Lab Interpretation (test code = Abnormal 13653-0) [facility] NOW RAPID TESTING)2020-11-17 04:24:47 Test Item Value Reference Range Interpretation Comments SARS-CoV-2 Rapid ID NOW Not Detected Not Detected (test code = 39849-1) ALISE (test code = ALISE) ID NOW COVID-19 Assay is an isothermal nucleic acid amplification test intended for the qualitative detection of nucleic acid from SARS-CoV-2 viral RNA in nasopharyngeal (STONEMASON APPRENTICE) specimens. It is used under Emergency Use [...] indicated. Lab Interpretation Normal (test code = 05968-5) [facility]. METABOLIC PANEL (28378)2020-11-17 04:22:11 Test Item Value Reference Range Interpretation Comments NA (test code = 138 mmol/L 135-145 9743757186) K (test code = 4.0 mmol/L 3.5-5.0 7721416776) CL (test code = 98 mmol/L 98-108 7499403750) CO2 TOTAL (test code = 30 mmol/L 23-31 3004407276) AGAP (test code = 2-16 9262742542) BUN (test code = 13 mg/dL 7-23 6820016189) GLUCOSE (test code = 83 mg/dL 70-110 8037258210) CREATININE (test code = 0.98 mg/dL 0.60-1.25 9475022544) TOTAL BILI (test code = 0.5 mg/dL 0.1-1.4 3343746193) CALCIUM (test code = 9.9 mg/dL 8.6-10.6 1208199043) T PROTEIN (test code = 9.5 g/dL 6.3-8.2 H 6573819079) ALBUMIN (test code = 4.9 g/dL 3.5-5.0 1075162852) ALK PHOS (test code = 100 U/L 34-122 1948769067) ALTv (test code = 55 U/L 5-50 H 1742-6) AST(SGOT) (test code = 48 U/L 13-40 H 8517952466) eGFR (test code = mL/min/1.73m2 6392742857) ALISE (test code = ALISE) Association of [...] tests). Lab Interpretation Abnormal (test code = 08437-6) [facility] WITH URLT7128-10-27 04:18:30 Test Item Value Reference Range Interpretation [...] RDW-SD (test code = 46.1 fL 38.5-51.6 32918-9) RDW-CV (test code = 14.6 % 12.1-15.4 788-0) PLT (test code = See_Comment H [Automated 777-3) message] The sy stem which generated this result transmitted reference range : 150 - 328 10*3/ ?L. The reference r sheree was not used to interpret this result as normal/abnormal . MPV (test code = 9.7 fL 9.8-13.0 L 34229-4) NRBC/100 WBC (test See_Comment [Automat ed code = 8632778204) message] The system which generated this result transmitted reference range : 0.0 - 10.0 /100 WBCs. The refer ence range was not u sed to interpret th is result as normal/abnormal . NRBC x10^3 (test code <0.01 See_Comment [Auto mated = 1467501445) message] The s ystem which generated this result transmitted reference range : 10*3/?L. The reference range was not used to interpret this result as normal/abnormal . GRAN MAT (NEUT) % 48.7 % (test code = 770-8) IMM GRAN % (test code 0.50 % = 4514765481) LYMPH % (test code = 39.7 % 736-9) MONO % (test code = 9.0 % 5905-5) EOS % (test code = 1.5 % 713-8) BASO % (test code = 0.6 % 706-2) GRAN MAT x10^3(ANC) 4.23 10*3/uL 1.99-6.95 (test code = 8138893896) IMM GRAN x10^3 (test 0.04 10*3/uL 0.00-0.06 code = 6750151761) LYMPH x10^3 (test code 3.44 10*3/uL 1.09-3.23 H = 731-0) MONO x10^3 (test code 0.78 10*3/uL 0.36-1.02 = 742-7) EOS x10^3 (test code = 0.13 10*3/uL 0.06-0.53 711-2) BASO x10^3 (test code 0.05 10*3/uL 0.01-0.09 = 704-7) Lab Interpretation Abnormal (test code = 53757-3) [facility]"
[2021-09-12 17:27] LABS: Absolute Lymphocytes (CBC) 1.7 K/uL (0.7-4.9); Hematocrit 32.2 % (39.6-49.0); Lymphocytes % 40.8 % (15.3-44.8); MPV 6.8 fL (7.6-11.3); RBC Red Blood Cell Count 4.18 M/uL (4.33-5.43)
[2021-09-12 17:48] LABS: Potassium 3.3 mmol/L (3.5-5.1)
--- NOTE | 2021-09-12 18:24 | ER ---
Nurse's Notes [facility] Name: Nicole Karimi Age: 36 yrs Sex: Male : 1985 Arrival Date: 09/12/2021 Time: 16:09 Bed 8 Private MD: Diagnosis: Cellulitis of the Right Lower Leg Presentation: 09/12 16:11 Chief complaint: Patient states: i had MRSA. i had infection in my RIGHT foot. i went tw2 to [facility] and didn't get my IV therapy antibiotic. my right ankle is draining green stuff and it stinks. and my leg had been throbbing. Coronavirus screen: At this time, the client does not indicate any symptoms associated with coronavirus-19. Ebola Screen: Patient denies travel to an Ebola-affected area in the 21 days before illness onset. Initial Sepsis Screen: Does the patient meet any 2 criteria? HR > 90 bpm. No. Patient's initial sepsis screen is negative. Does the patient have a suspected source of infection? Yes: Skin breakdown/wound. Risk Assessment: Do you want to hurt yourself or someone else? Patient reports no desire to harm self or others. Onset of symptoms was September 12, 2021. 16:11 Method Of Arrival: Carried tw2 16:11 Acuity: HATTIE 3 tw2 Triage Assessment: 16:13 General: Appears in no apparent distress. slender, well groomed, Behavior is calm, tw2 cooperative, appropriate for age. Pain: Complains of pain in right ankle and right Achilles. Historical: - Allergies: 16:13 Penicillins; tw2 - Home Meds: 16:13 Genvoya [phone] mg oral tab 1 tab once daily [Active]; tw2 - PMHx: 16:13 syphilis; tw2 16:26 HIV; tw2 - PSHx: 16:13 wound, left ankle area; tw2 - Immunization history:: Client reports receiving the 2nd dose of the Covid vaccine. - Social history:: Smoking status: Patient reports the use of cigarette tobacco products, couple a day. Screenin:25 Abuse screen: Denies threats or abuse. Nutritional screening: No deficits noted. tw2 Tuberculosis screening: No symptoms or risk factors identified. Fall Risk None identified. Assessment: 16:20 General: SEE TRIAGE NOTE. bp 17:42 Reassessment: No changes from previously documented assessment. Patient and/or family bp updated on plan of care and expected duration. Pain level reassessed. 18:37 Reassessment: PT D/C HOME VIA CRUTCHES, DX WITH CELLULITIS. bp Vital Signs: 16:16 BP 151 / 90; Pulse 109; Resp 18; Temp 98.8; Pulse Ox 100% on R/A; Weight 70.31 kg (R); tw2 Height 6 ft. 0 in. (182.88 cm); Pain 7/10; 17:42 BP 150 / 101; Pulse 99; Resp 16; Pulse Ox 99% ; bp 18:37 BP 148 / 97; Pulse 101; Resp 16; Pulse Ox 100% ; bp 16:16 Body Mass Index 21.02 (70.31 kg, 182.88 cm) tw2 ED Course: 16:09 Patient arrived in ED. as 16:10 William Parmar PA is PHCP. [facility] 16:10 Russell Mckinney MD is Attending Physician. [facility] 16:13 Triage completed. tw2 16:16 Arm band placed on. tw2 16:25 Bed in low position. Call light in reach. tw2 16:26 Jesse Montano, RN is Primary Nurse. bp 17:15 Inserted saline lock: 20 gauge in right forearm, using aseptic technique. Blood bp collected. 18:37 No provider procedures requiring assistance completed. IV discontinued, intact, bp bleeding controlled, No redness/swelling at site. Pressure dressing applied. Wound care: to cellulitis located on right leg was dressed with 4X4s, Patient tolerated well. Administered Medications: 18:20 Drug: Bactrim (trimethoprim-sulfamethoxazole) (160 mg-800 mg (DS) 1 tablet Route: PO; bp 18:36 Follow up: Response: No adverse reaction bp 18:20 Drug: Doxycycline 100 mg Route: PO; bp 18:36 Follow up: Response: No adverse reaction bp Medication: 17:42 VIS not applicable for this client. bp Outcome: 18:24 Discharge ordered by . jmm 18:37 Discharged to home with crutches. bp 18:37 Condition: stable 18:37 Discharge instructions given to patient, Instructed on discharge instructions, follow up and referral plans. medication usage, crutch walking, wound care, Demonstrated understanding of instructions, follow-up care, medications, wound care, Prescriptions given X 2. 18:38 Patient left the ED. bp Signatures: William Parmar PA PA jmm Martinez, Amelia as Calderon, Audri RN RN aa5 Cely Gutierrez RN RN tw2 Jesse Montano RN RN bp Corrections: (The following items were deleted from the chart) 16:23 16:13 PMHx: HIV; tw aa 16:26 16:11 Chief complaint: Patient states: i had MRSA. i had infection in my RIGHT foot. i tw2 went to [facility] and didn't get my IV therapy antibiotic. my right ankle is drainage green stuff and it stinks. and my leg had been throbbing tw 16:27 16:23 PMHx: HIV; ; aa5 tw2
--- NOTE | 2021-09-12 18:24 | EDPHYS ---
Physician Documentation [facility] Name: Nicole Karimi Age: 36 yrs Sex: Male : 1985 Arrival Date: 09/12/2021 Time: 16:09 Bed 8 Private MD: NEDRA Physician Russell Mckinney HPI: 09/12 16:23 This 36 yrs old Black Male presents to ER via Carried with complaints of infection r jmm leg. 16:23 The patient presents with pain, swelling. Onset: The symptoms/episode began/occurred jmm gradually, 3 day(s) ago. This is a 36-year-old male with history of HIV the presents emerged department with complaints of right lower leg pain and swelling symptoms have been chronic since an I\T\D performed in July of this year. Patient states he went to [facility] is unable to begin IV antibiotics. Patient denies fever or chills. Patient states he has not been taking his antiviral medications. . Historical: - Allergies: 16:13 Penicillins; tw2 - Home Meds: 16:13 Genvoya [phone] mg oral tab 1 tab once daily [Active]; tw2 - PMHx: 16:13 syphilis; tw2 16:26 HIV; tw2 - PSHx: 16:13 wound, left ankle area; tw2 - Immunization history:: Client reports receiving the 2nd dose of the Covid vaccine. - Social history:: Smoking status: Patient reports the use of cigarette tobacco products, couple a day. ROS: 16:23 Constitutional: Negative for fever, chills, and weight loss, Cardiovascular: Negative jmm for chest pain, palpitations, and edema, Respiratory: Negative for shortness of breath, cough, wheezing, and pleuritic chest pain. 16:23 MS/extremity: Positive for pain, swelling. 16:23 All other systems are negative. Exam: 16:23 Constitutional: This is a well developed, well nourished patient who is awake, alert, jmm and in no acute distress. Head/Face: atraumatic. Eyes: EOMI, no conjunctival erythema appreciated ENT: Moist Mucus Membranes Neck: Trachea midline, Supple Chest/axilla: Normal chest wall appearance and motion. Cardiovascular: Regular rate and rhythm. No edema appreciated Respiratory: Normal respirations, no respiratory distress appreciated Abdomen/GI: Non distended, soft Back: Normal ROM 16:23 Skin: Wound noted to the right lower leg, there is surrounding induration appreciated, serous fluid appreciated, mildly tender to palpation. 16:23 Neuro: Orientation: is normal, Mentation: is normal, Memory: is normal. 16:23 Psych: Behavior/mood is pleasant, cooperative. Vital Signs: 16:16 BP 151 / 90; Pulse 109; Resp 18; Temp 98.8; Pulse Ox 100% on R/A; Weight 70.31 kg (R); tw2 Height 6 ft. 0 in. (182.88 cm); Pain 7/10; 17:42 BP 150 / 101; Pulse 99; Resp 16; Pulse Ox 99% ; bp 18:37 BP 148 / 97; Pulse 101; Resp 16; Pulse Ox 100% ; bp 16:16 Body Mass Index 21.02 (70.31 kg, 182.88 cm) tw2 MDM: 16:23 Patient medically screened. [facility] 18:17 Data reviewed: vital signs, nurses notes. Counseling: I had a detailed discussion with jose the patient and/or guardian regarding: the historical points, exam findings, and any diagnostic results supporting the discharge/admit diagnosis, the need for outpatient follow up, to return to the emergency department if symptoms worsen or persist or if there are any questions or concerns that arise at home. ED course: Patient is alert nontoxic in appearance NAD. Labs are consistent with sepsis. Patient encouraged to follow with infectious disease. May need to be put back on his regimen of antiviral medications. Patient given oral antibiotics here and prescribed antibiotics for home. Patient otherwise given strict return precautions. Patient understood agrees plan of care.. 09/12 16:59 Order name: Wound Culture [facility] 09/12 17:02 Order name: CBC with Diff; Complete Time: 18:03 [facility] 09/12 17:02 Order name: Procalcitonin; Complete Time: 18:26 [facility] 09/12 17:02 Order name: Lactate; Complete Time: 17:40 [facility] 09/12 17:02 Order name: BMP; Complete Time: 17:52 [facility] 09/12 17:02 Order name: Saline Lock; Complete Time: 17:15 [facility] Administered Medications: 18:20 Drug: Bactrim (trimethoprim-sulfamethoxazole) (160 mg-800 mg (DS) 1 tablet Route: PO; bp 18:36 Follow up: Response: No adverse reaction bp 18:20 Drug: Doxycycline 100 mg Route: PO; bp 18:36 Follow up: Response: No adverse reaction bp Disposition Summary: 09/12/21 18:24 Discharge Ordered Location: Home [facility] Condition: Stable [facility] Diagnosis - Cellulitis of the Right Lower Leg [facility] Followup: [facility] - With: Private Physician - When: 2 - 3 days - Reason: Recheck today's complaints, Continuance of care, Re-evaluation by your physician Discharge Instructions: - Discharge Summary Sheet [facility] - Cellulitis, Adult [facility] Forms: - Medication Reconciliation Form [facility] - Thank You Letter [facility] - Antibiotic Education [facility] - Prescription Opioid Use [facility] Prescriptions: - Doxycycline Hyclate 100 mg Oral Tablet - take 1 tablet by ORAL route every 12 hours; 20 tablet; Refills: 0, Product [facility] Selection Permitted - Bactrim DS 800-160 mg Oral Tablet - take 1 tablet by ORAL route every 12 hours for 10 days; 20 tablet; Refills: 0, [facility] Product Selection Permitted Signatures: Dispatcher [employer] Russell Koehler MD MD cha Mickail, Joel, PA PA [facility] Rissa Spivey RN RN aa5 Cely Gutierrez RN RN tw2 Jesse Montano RN RN bp Corrections: (The following items were deleted from the chart) 16:23 16:13 PMHx: HIV; tw2 aa5 16:27 16:23 PMHx: HIV; ; aa5 tw2
[2021-09-12] MEDS ORDERED: SMZ./TMP. 800/160 MG TABLET ONE (18:26)
[2021-09-12] MEDS ORDERED: DOXYCYCLINE 100 MG CAP PO ONE (18:26)
[2021-09-12 19:15] VITALS: TEMP 98.8
[2021-09-12 19:18] VITALS: BP 148/97; O2SAT 100
== END 2021-09-12 18:38 | disposition home or self-care (01) ==
LOC: ER 16:06
DX: L03.115 Cellulitis of right lower limb (principal); Z72.0 Tobacco use; Z88.0 Allergy status to penicillin
CPT/HCPCS: 36415; 80048; 83605; 84145; 85025; 87070; 87077; 87186; 87205; 99284

== ENCOUNTER 2021-09-16 22:18 | Emergency (ER) | payer SELFPAY ==
--- OUTSIDE RECORDS SUMMARY | 2021-09-16 22:22 | XMS REPORT | Continuity of Care Document ---
:1985 Author Organization [facility] t Address [address] [place] [address] Care Team Providers Name Role Phone PCP, [...] Active Univers ALLERGIE Class ity of [facility] Social History Social Habit Start Date Stop Date Quantity Comments Source History of tobacco 2002-04-24 Cigarette Smoker University of use 00:00:00 [facility] Exposure to Not sure University of SARS-CoV-2 (event) [facility] Cigarettes smoked 2017-06-22 2017-06-22 Univers ity of current (pack per 00:00:00 00:00:00 [facility] ) - Reported Branch Alcohol intake 2017-06-22 2017-06-22 0 /d University 00:00:00 00:00:00 [facility] Sex Ass[birth year] At [birth year] Universit y of 00:00:00 00:00:00 [facility] Smoking Status Start Date Stop Date Source Current every day smoker 2017-06-22 00:00:[address] [facility] Medications Ordered Filled Start Stop Current Ordering Indication Dosage Frequency Signature Comments Components Source Medication Medication Date Date Medication? Clinician (SIG) Name Name cephALEXin 2021- Yes [id number] 500mg Take 1 Univers (KEFLEX) 3-28 -05 capsule by ity of 500 mg 00:00: 04:59 mouth 4 [place] capsule 00 :00 (four) Medical times Altha daily for 7 days. cephALEXin 2021- Yes [id number] 500mg Take 1 Univers (KEFLEX) 3-28 -05 capsule by ity of 500 mg 00:00: 04:59 mouth 4 [place] capsule 00 :00 (four) Medical times Altha daily for 7 days. ibuprofen 2020-04 Yes [id number] 600mg Take 1 Univers 600 mg 1-28 [id number] tablet by ity of tablet 00:00: mouth [place] 00 every 8 Medical (eight) Branch hours as needed for Pain (scale 4-6). ibuprofen 2020-04 Yes [id number] 600mg Take 1 Univers 600 mg 1-28 [id number] tablet by ity of tablet 00:00: mouth [place] 00 every 8 Medical (eight) Branch hours as needed for Pain (scale 4-6). ibuprofen 2020-04 Yes [id number] 600mg Take 1 Univers 600 mg 1-28 [id number] tablet by ity of tablet 00:00: mouth [place] 00 every 8 Medical (eight) Branch hours as needed for Pain (scale 4-6). ibuprofen 2020-04 Yes [id number] 600mg Take 1 Univers 600 mg 1-28 [id number] tablet by ity of tablet 00:00: mouth [place] 00 every 8 Medical (eight) Branch hours as needed for Pain (scale 4-6). ibuprofen 2020-04 Yes [id number] 600mg Take 1 Univers 600 mg 1-28 [id number] tablet by ity of tablet 00:00: mouth [place] 00 every 8 Medical (eight) Branch hours as needed for Pain (scale 4-6). ketorolac 2020- No 30mg 30 mg, Unive rs (TORADOL) 11-17 08-07 Slow IV ity of injection 05:30: 04:31 Push, [place] 30 mg 00 :00 ONCE, 1 Medical dose, Sat Branch 11/17/20 at 0030, Routine
film crew member approving Restricted medication : ANDRE AGUILAR [...] 1 Un siobhan HCl (BURN 12-18 } [place] to ity of SPRAY, 00:00: area(s) 3 [place] LIDOCAINE,) 00 (three) Medic al 2 % [place] times Branch daily as needed (penile pain). [...] f 2 % 00:00: every 6 [place] [address] (six) Medical hours as Branch needed for Oral mucosal pain. No known No Univers medications it of [facility] No known No Univers medications it of [facility] Immunizations Ordered Filled Immunization Date Status Comments [facility] e Immunization Name Name Pneumococcal 2016-07-14 Completed University o f Polysaccharide, 00:00:00 [place] Med ical PPSV23 (PNEUMOVAX) Branch Influenza Virus 2016-07-14 Completed Universit y of Vaccine Quad IM 3+ 00:00:00 [facility] Pneumococcal 2016-07-14 Completed University o f Polysaccharide, 00:00:00 [place] Med ical PPSV23 (PNEUMOVAX) Branch Influenza Virus 2016-07-14 Completed Universit y of Vaccine Quad IM 3+ 00:00:00 [facility] Pneumococcal 2016-07-14 Completed University o f Polysaccharide, 00:00:00 [place] [facility] ical PPSV23 (PNEUMOVAX) Branch Influenza Virus 2016-07-14 Completed Universit y of Vaccine Quad IM 3+ 00:00:00 [facility] Pneumococcal 2016-07-14 Completed University o f Polysaccharide, 00:00:00 [place] Med ical PPSV23 (PNEUMOVAX) Branch Influenza Virus 2016-07-14 Completed Universit y of Vaccine Quad IM 3+ 00:00:00 [facility] Pneumococcal 2016-07-14 Completed University o f Polysaccharide, 00:00:00 [place] Med ical PPSV23 (PNEUMOVAX) Branch Influenza Virus 2016-07-14 Completed Universit y of Vaccine Quad IM 3+ 00:00:00 [facility] Pneumococcal 2016-07-14 Completed University o f Polysaccharide, 00:00:00 [place] Med ical PPSV23 (PNEUMOVAX) Branch Influenza Virus 2016-07-14 Completed Universit y of Vaccine Quad IM 3+ 00:00:00 [facility] Pneumococcal 2016-07-14 Completed University o f Polysaccharide, 00:00:00 [place] [facility] ical PPSV23 (PNEUMOVAX) Branch Influenza Virus 2016-07-14 Completed Universit y of Vaccine Quad IM 3+ 00:00:00 [facility] Pneumococcal 2016-07-14 Completed University o f Polysaccharide, 00:00:00 [place] Med ical PPSV23 (PNEUMOVAX) Branch Influenza Virus 2016-07-14 Completed Universit y of Vaccine Quad IM 3+ 00:00:00 [facility] Influenza Virus 2015-01-08 Completed Universit y of Vaccine Quad ID 00:00:00 [facility] [address] [facility] Branch Pneumococcal 13 2015-01-08 Completed Universit y of Conjugate, PCV13 00:00:00 [facility] dical (Prevnar 13) Branch TDAP (ADACEL) 2015-01-08 Completed University of VACCINE 00:00:00 [facility] Influenza Virus 2015-01-08 Completed Universit y of Vaccine Quad ID 00:00:00 [facility] [address] [facility] Branch Pneumococcal 13 2015-01-08 Completed Universit y of Conjugate, PCV13 00:00:00 [facility] dical (Prevnar 13) Branch TDAP (ADACEL) 2015-01-08 Completed University of VACCINE 00:00:00 [facility] Influenza Virus 2015-01-08 Completed Universit y of Vaccine Quad ID 00:00:00 [facility] [address] [facility] Branch Pneumococcal 13 2015-01-08 Completed Universit y of Conjugate, PCV13 00:00:00 [facility] dical (Prevnar 13) Branch TDAP (ADACEL) 2015-01-08 Completed University of VACCINE 00:00:00 [facility] Influenza Virus 2015-01-08 Completed Universit y of Vaccine Quad ID 00:00:00 [facility] [address] [facility] Branch Pneumococcal 13 2015-01-08 Completed Universit y of Conjugate, PCV13 00:00:00 [facility] dical (Prevnar 13) Branch TDAP (ADACEL) 2015-01-08 Completed University of VACCINE 00:00:00 [facility] Influenza Virus 2015-01-08 Completed Universit y of Vaccine Quad ID 00:00:00 [facility] [address] [facility] Branch Pneumococcal 13 2015-01-08 Completed Universit y of Conjugate, PCV13 00:00:00 [facility] dical (Prevnar 13) Branch TDAP (ADACEL) 2015-01-08 Completed University of VACCINE 00:00:00 [facility] Influenza Virus 2015-01-08 Completed Universit y of Vaccine Quad ID 00:00:00 [facility] [address] [facility] Branch Pneumococcal 13 2015-01-08 Completed Universit y of Conjugate, PCV13 00:00:00 [facility] dical (Prevnar 13) Branch TDAP (ADACEL) 2015-01-08 Completed University of VACCINE 00:00:00 [facility] Influenza Virus 2015-01-08 Completed Universit y of Vaccine Quad ID 00:00:00 [facility] [place] [facility] ical 18-64 YRS Branch Pneumococcal 13 2015-01-08 Completed Universit y of Conjugate, PCV13 00:00:00 [facility] dical (Prevnar 13) Branch TDAP (ADACEL) 2015-01-08 Completed University of VACCINE 00:00:00 [facility] Influenza Virus 2015-01-08 Completed Universit y of Vaccine Quad ID 00:00:00 [facility] [place] [facility] ical 18-64 YRS Branch Pneumococcal 13 2015-01-08 Completed Universit y of Conjugate, PCV13 00:00:00 [facility] dical (Prevnar 13) Branch TDAP (ADACEL) 2015-01-08 Completed University of VACCINE 00:00:00 [facility] Vital Signs Vital Name Observation Time Observation Value Comments Source Systolic blood 2021-07-08 16:39:00 133 mm[Hg] Univer sity of pressure [facility] Diastolic blood 2021-07-08 16:39:00 83 mm[Hg] Unive rsity of [facility] Heart rate 2021-07-08 16:39:00 107 /min [facility] Respiratory rate 2021-07-08 16:39:00 16 /min [facility] Oxygen saturation in 2021-07-08 16:39:00 100 /min [facility] Arterial blood by [facility] Pulse oximetry Branch Body temperature 2021-07-08 16:36:00 35.94 Reanna [facility] Body height 2021-07-08 13:57:00 182.9 cm [facility] Body weight 2021-07-08 13:57:00 74.844 kg [facility] BMI 2021-07-08 13:57:00 22.38 kg/m2 [facility] Systolic blood 2021-03-10 14:46:00 140 mm[Hg] Univer sity of pressure [facility] Diastolic blood 2021-03-10 14:46:00 100 mm[Hg] Unive rsity of [facility] Heart rate 2021-03-10 14:46:00 98 /min [facility] Body temperature 2021-03-10 14:46:00 36.56 Reanna [facility] ersity of [place] [facility] Respiratory rate 2021-03-10 14:46:00 18 /min Univ ersity of [place] [facility] Body height 2021-03-10 14:46:00 182.9 cm Universi ty of [place] [facility] Body weight 2021-03-10 14:46:00 76.658 kg Universi ty of [place] [facility] Altha BMI 2021-03-10 14:46:00 22.92 kg/m2 Universi ty of [facility] Oxygen saturation in 2021-03-10 14:46:00 100 /min University of Arterial blood by [facility] Pulse oximetry Branch Systolic blood 2020-11-17 07:00:00 132 mm[Hg] Univer sity of pressure [place] [facility] Altha Diastolic blood 2020-11-17 07:00:00 92 mm[facility]Hg] [facility] Heart rate 2020-11-17 07:00:00 74 /min Universi ty of [place] [facility] Altha Respiratory rate 2020-11-17 07:00:00 18 /min [facility] ersity of [facility] Oxygen saturation in 2020-11-17 07:00:00 100 /min University of Arterial blood by [facility] Pulse oximetry Branch Body temperature 2020-11-17 06:44:00 36.17 Reanna [facility] ersity of [place] [facility] Altha Body height 2020-11-16 23:58:00 182.9 cm Universi ty [facility] [place] [facility] Body weight 2020-11-16 23:58:00 72.576 kg Universi ty of [place] [facility] BMI 2020-11-16 23:58:00 21.70 kg/m2 Universi ty of [place] [facility] Altha Procedures Procedure Date / Time Performing Clinician Source Performed NOTICE OF PRIVACY 2021-07-08 13:46:42 Doctor Unassigned, No Univ ersity of [place] PRACTICES Name Medical Branch CONSENT/REFUSAL FOR 2021-07-08 13:38:59 Doctor Unassigned, No Un iversity [facility] DIAGNOSIS AND TREATMENT Name Medical Branch AUTHORIZATION FOR 2021-03-23 06:01:00 Doctor Unassigned, No Univ ersity [facility] RELEASE OF PHI Name Medical Branch XR ANKLE 3+ VW RIGHT 2021-03-10 15:12:24 Guerline Reynolds Univers ity of [place] [facility] US TESTICULAR TORSION 2020-11-17 05:19:[address] [facility] COMP. METABOLIC PANEL 2020-11-17 04:00:00 Andre Aguilar [facility] ([id number]) Medical Branch CBC WITH DIFF 2020-11-17 04:00:[address] [facility] COVID-19 (ID NOW RAPID 2020-11-17 04:00:00 Andre Aguilar [facility] TESTING) Medical Branch URINALYSIS 2020-11-17 03:59:[address] [facility] AUTHORIZATION FOR 2020-07-27 05:01:00 Doctor Unassigned, No [facility] RELEASE OF PHI Name [facility] Branch AUTHORIZATION FOR 2019-12-02 05:01:00 Doctor Unassigned, No [facility] RELEASE OF PHI Name Medical Altha Encounters Start End Encounter Admission Attending Care Care Encounter Source Date/Time Date/Time Type Type Clinicians Facility Department ID 2021-02-11 Emergency [facility] [id number] Univers 13:47:[address] [facility] 2021-07-09 2021-07-09 Telephone YAHAIRA Villeda [id number] Univers 00:00:00 00:00:00 [facility] [id number] ity of [facility] [id number] [facility] [phone] [address] 2021-07-08 2021-07-08 Emergency [facility] [id number] Univers 08:49:00 11:58:[address] [facility] 2021-07-08 2021-07-08 [facility] [id number] Univers 08:49:00 11:58:00 Francisca CHAVEZ [id number] ity [facility] [id number] [facility] [id number] [place] [id number] Altha 2021-07-07 2021-07-07 Telephone YAHAIRA Amanda [id number] Univers 00:00:00 00:00:00 [facility] [id number] ity of [place] [id number] [facility] 089 Branch 2021-03-23 2021-03-23 Orders Doctor MILAN [id number] Univers 00:00:00 00:00:00 Only Unassigned, LEXUS [id number] ity of [place] [facility] 4.2.7.2.686 Des as [id number] [facility] 009 Branch 2021-03-11 2021-03-11 [facility] [id number] Univers 09:00:00 09:00:00 SARBJIT [id number] ity [facility] 2021-03-11 2021-03-11 [facility] [id number] Univers 09:00:00 09:00:00 SARBJIT ity [facility] 2021-03-10 2021-03-10 Emergency [facility] [id number] Univers 08:46:00 09:58:00 [facility] 2021-03-10 2021-03-10 Emergency [facility] [id number] Univers 08:46:00 09:58:00 Guerline CHAVEZ [id number] i ty of [place]2.686 [place] [phone] [facility] 084 Altha 2020-12-27 2020-12-27 [facility] [id number] Univers 08:00:00 08:00:00 SARBJIT ity [facility] 2020-12-27 2020-12-27 [facility] [id number] Univers 08:00:00 08:00:00 SARBJIT [id number] ity [facility] 2020-11-16 2020-11-17 [facility] [id number] Univers 19:04:00 02:29:00 Andre Chavez [id number] ity of [place] 4.2.7.2.686 [place] [facility] [id number] [place] 723414 Altha 2020-07-27 2020-07-27 Orders Doctor MILAN Deluca.[id number] Univers 00:00:00 00:00:00 Only Unassigned, LEXUS [id number] ity of [place] [facility] [id number] Des as [id number] [address] 2020-06-07 2020-06-07 Outpatient [facility] [id number] Univers 10:00:00 10:00:00 [place] [id number] [facility] 2020-06-07 2020-06-07 Outpatient [facility] [id number] Univers 10:00:00 10:00:00 [facility] 2019-12-02 2019-12-02 Orders Doctor MILAN [id number] Univers 00:00:00 00:00:00 Only Unassigned, LEXUS [id number] ity of [place] [facility] [id number] Des as [id number] [address] Results Test Description Test Time Test Comments Results Result Comments Source URINALYSIS 2020-11-17 04:30:40 Test Item Value Reference Range Interpretation Comme nts APPEARANCE (test code = Clear Clear 9287908092) COLOR (test code = 1202604954) Yellow Yellow PH (test code = 2054648073) 4.8-8.0 SP GRAVITY (test code = 1.003-1.030 3171633016) GLU U QUAL (test code = Normal Normal 9526777252) BLOOD (test code = 3251037359) Negative Negative KETONES (test code = 1540536013) Negative Negative PROTEIN (test code = 2887-8) Negative Negative UROBILIN (test code = 9709571876) Normal Normal BILIRUBIN (test code = Negative Negative 7973567880) NITRITE (test code = 5539105807) Negative Negative LEUK MADONNA (test code = Negative Negative 3971665233) RBC/HPF (test code = 8201928685) See_Comment [Automated message] The system which ge nerated this result transmit poncho reference range: 0 - 3 HP F. The reference range was not used to interpret th is result as normal/abnormal . WBC/HPF (test code = 8563916717) <1 See_Comment [Automated message] The system which ge nerated this result transmit poncho reference range: 0 - 5 HP F. The reference range was not used to interpret th is result as normal/abnormal . BACTERIA (test code = 0535874390) Few Negative A Lab Interpretation (test code = Abnormal 74967-0) [facility] NOW RAPID TESTING)2020-11-17 04:24:47 Test Item Value Reference Range Interpretation Comments SARS-CoV-2 Rapid ID NOW Not Detected Not Detected (test code = 36759-0) ALISE (test code = ALISE) ID NOW COVID-19 Assay is an isothermal nucleic acid amplification test intended for the qualitative detection of nucleic acid from SARS-CoV-2 viral RNA in nasopharyngeal (POT FIREMAN) specimens. It is used under Emergency Use [...] indicated. Lab Interpretation Normal (test code = 71428-1) [facility]. METABOLIC PANEL (14518)2020-11-17 04:22:11 Test Item Value Reference Range Interpretation Comments NA (test code = 138 mmol/L 135-145 4054845426) K (test code = 4.0 mmol/L 3.5-5.0 5323940161) CL (test code = 98 mmol/L 98-108 5820778351) CO2 TOTAL (test code = 30 mmol/L 23-31 7487015372) AGAP (test code = 2-16 1465132631) BUN (test code = 13 mg/dL 7-23 4653552124) GLUCOSE (test code = 83 mg/dL 70-110 9671167879) CREATININE (test code = 0.98 mg/dL 0.60-1.25 3036173863) TOTAL BILI (test code = 0.5 mg/dL 0.1-1.2 4881446463) CALCIUM (test code = 9.9 mg/dL 8.6-10.6 6509559022) T PROTEIN (test code = 9.5 g/dL 6.3-8.2 H 3544165600) ALBUMIN (test code = 4.9 g/dL 3.5-5.0 2849454128) ALK PHOS (test code = 100 U/L 34-122 7061576811) ALTv (test code = 55 U/L 5-50 H 1742-6) AST(SGOT) (test code = 48 U/L 13-40 H 2037835805) eGFR (test code = mL/min/1.73m2 0473213715) ALISE (test code = ALISE) Association of [...] tests). Lab Interpretation Abnormal (test code = 85902-0) [facility] WITH [id number] 04:18:30 Test Item Value Reference Range Interpretation [...] RDW-SD (test code = 46.1 fL 38.5-51.6 75354-1) RDW-CV (test code = 14.6 % 12.1-15.4 788-0) PLT (test code = See_Comment H [Automated 777-3) message] The sy stem which generated this result transmitted reference range : 150 - 328 10*3/ ?L. The reference r sheree was not used to interpret this result as normal/abnormal . MPV (test code = 9.7 fL 9.8-13.0 L 12495-0) NRBC/100 WBC (test See_Comment [Automat ed code = 0620166643) message] The system which generated this result transmitted reference range : 0.0 - 10.0 /100 WBCs. The refer ence range was not u sed to interpret th is result as normal/abnormal . NRBC x10^3 (test code <0.01 See_Comment [Auto mated = 3828127145) message] The s ystem which generated this result transmitted reference range : 10*3/?L. The reference range was not used to interpret this result as normal/abnormal . GRAN MAT (NEUT) % 48.7 % (test code = 770-8) IMM GRAN % (test code 0.50 % = 8599518665) LYMPH % (test code = 39.7 % 736-9) MONO % (test code = 9.0 % 5905-5) EOS % (test code = 1.5 % 713-8) BASO % (test code = 0.6 % 706-2) GRAN MAT x10^3(ANC) 4.23 10*3/uL 1.99-6.95 (test code = 6141676099) IMM GRAN x10^3 (test 0.04 10*3/uL 0.00-0.06 code = 9667131790) LYMPH x10^3 (test code 3.44 10*3/uL 1.09-3.23 H = 731-0) MONO x10^3 (test code 0.78 10*3/uL 0.36-1.02 = 742-7) EOS x10^3 (test code = 0.13 10*3/uL 0.06-0.53 711-2) BASO x10^3 (test code 0.05 10*3/uL 0.01-0.09 = 704-7) Lab Interpretation Abnormal (test code = 04172-4) [facility]"
[2021-09-16] MEDS ORDERED: predniSONE 20 MG TAB ONE (23:38)
[2021-09-16] MEDS ORDERED: DIPHENHYDRAMINE 25 MG TAB/CAP ONE (23:38)
[2021-09-16 23:52] LABS: Absolute Lymphocytes (CBC) 1.9 K/uL (0.7-4.9); Hematocrit 32.9 % (39.6-49.0); MPV 6.8 fL (7.6-11.3); RBC Red Blood Cell Count 4.31 M/uL (4.33-5.43)
[2021-09-16 23:59] LABS: Potassium 3.5 mmol/L (3.5-5.1)
--- NOTE | 2021-09-17 00:47 | ER ---
Nurse's Notes [facility] Name: Nicole Karimi Age: 36 yrs Sex: Male : 1985 Arrival Date: 09/16/2021 Time: 22:21 Bed 18 Private MD: Diagnosis: Allergic reaction to medication;Rash and other nonspecific skin eruption;Cellulitis of right lower limb Presentation: 09/16 22:45 Chief complaint: Patient states: Pt reports having surgery on lower right leg for MRSA ld1 infection. Pt on doxycycline and bactrim - reports having an allergic reaction to medications. Causing bumps all over body, blisters on bottom of feet, blisters on tip of penis, around anus, and face. Coronavirus screen: At this time, the client does not indicate any symptoms associated with coronavirus-19. Ebola Screen: No symptoms or risks identified at this time. Onset: The symptoms/episode began/occurred acutely. Anaphylaxis evaluation, no signs or symptoms of anaphylaxis were noted. Initial Sepsis Screen: Does the patient meet any 2 criteria? No. Patient's initial sepsis screen is negative. Does the patient have a suspected source of infection? No. Patient's initial sepsis screen is negative. Risk Assessment: Do you want to hurt yourself or someone else? Patient reports no desire to harm self or others. Onset of symptoms was September 16, 2021. 22:45 Method Of Arrival: Ambulatory ld1 22:45 Acuity: HATTIE 3 ld1 Triage Assessment: 22:46 General: Appears in no apparent distress. comfortable, Behavior is cooperative, ld1 appropriate for age, anxious. Pain: Complains of pain in face, buttocks, pelvis, right foot, left foot, right arm, left arm, right leg and left leg Pain does not radiate. Pain currently is 8 out of 10 on a pain scale. EENT: No signs and/or symptoms were reported regarding the EENT system. Neuro: Level of Consciousness is awake, alert, obeys commands, Oriented to person, place, time, situation. Cardiovascular: Capillary refill < 3 seconds Patient's skin is warm and dry. Respiratory: Airway is patent Respiratory effort is even, unlabored. GI: Abdomen is flat, non-distended. Derm: No signs and/or symptoms reported regarding the dermatologic system. Historical: - Allergies: 22:46 PENICILLINS; ld1 - PMHx: 22:46 HIV; syphilis; ld1 - PSHx: 22:46 wound, left ankle area; ld1 - Immunization history:: Adult Immunizations up to date, Client reports having NOT received the Covid vaccine. - Social history:: Smoking status: Patient denies any tobacco usage or history of. Patient/guardian denies using alcohol. Screenin/07 01:45 Abuse screen: Denies threats or abuse. Nutritional screening: No deficits noted. ll3 Tuberculosis screening: No symptoms or risk factors identified. Fall Risk No secondary diagnosis (0 pts). IV access (20 points). Ambulatory Aid- None/Bed Rest/Nurse Assist (0 pts). Gait- Normal/Bed Rest/Wheelchair (0 pts) Mental Status- Oriented to own ability (0 pts). Total Harris Fall Scale indicates No Risk (0-24 pts). Assessment: 09/16 23:15 General: Appears in no apparent distress. uncomfortable, Behavior is calm, cooperative. ll3 Pain: Complains of pain in Whole body. Neuro: Level of Consciousness is awake, alert, obeys commands, Oriented to person, place, time, situation. Cardiovascular: Patient's skin is warm and dry. Respiratory: Airway is patent Respiratory effort is even, unlabored, Respiratory pattern is regular, symmetrical, Breath sounds are clear bilaterally. EENT: Reports Rash spot on mouth and tongue . Derm: Rash noted that is itchy, on left leg and right leg and left arm and right arm and left foot and right foot and pelvis and buttocks and face Reports itching, pain that is 6 out of 10 on a pain scale. Vital Signs: 22:45 BP 143 / 96; Pulse 81; Resp 18; Temp 98.3(TE); Pulse Ox 100% on R/A; Weight 70.31 kg; ld1 Height 6 ft. 0 in. (182.88 cm); Pain 8/10; 22:45 Body Mass Index 21.02 (70.31 kg, 182.88 cm) ld1 ED Course: 22:21 Patient arrived in ED. bp1 22:28 Bethany Valdez NP is PHCP. aj3 22:28 Hugh Leyva MD is Attending Physician. aj3 22:46 Triage completed. ld1 22:46 Arm band placed on right wrist. ld1 23:42 Inserted saline lock: 20 gauge in right antecubital area, using aseptic technique. lg3 Blood collected. 23:59 US Extremity Venous Unilateral Ltd In Process Unspecified. EDMI 09/17 00:26 Jay Jay Matute, RN is Primary Nurse. ll3 01:45 Patient has correct armband on for positive identification. Call light in reach. Side ll3 rails up X 1. 01:45 No provider procedures requiring assistance completed. IV discontinued, intact, ll3 bleeding controlled, No redness/swelling at site. Pressure dressing applied. Administered Medications: 09/16 23:50 Drug: Benadryl (diphenhydrAMINE) 25 mg Route: PO; ll3 09/17 00:50 Follow up: Response: No adverse reaction; Marked relief of symptoms ll3 09/16 23:50 Drug: predniSONE 40 mg Route: PO; ll3 09/17 00:50 Follow up: Response: No adverse reaction; Marked relief of symptoms ll3 00:50 Drug: Clindamycin 300 mg Route: PO; ll3 Medication: 01:46 VIS not applicable for this client. ll3 Outcome: 00:46 Discharge ordered by . aj3 01:45 Discharged to home ambulatory. ll3 01:45 Condition: stable 01:45 Discharge instructions given to patient, Instructed on discharge instructions, follow up and referral plans. medication usage, Demonstrated understanding of instructions, follow-up care, medications, Prescriptions given X 2. 01:46 Patient left the ED. ll3 Signatures: Dispatcher [employer] [facility] Elyssa Vaughan, RN RN lg3 Ana Luisa Ray Lauren, RN RN ld1 Jay Jay Matute, RN RN ll3 Bethany Valdez, GLENNA COUNTERPERSON aj3
--- NOTE | 2021-09-17 00:47 | EDPHYS ---
Physician Documentation [facility] Name: Nicole Karimi Age: 36 yrs Sex: Male : 1985 Arrival Date: 09/16/2021 Time: 22:21 Bed 18 Private MD: ED Physician Hugh Leyva HPI: 09/16 23:49 This 36 yrs old Black Male presents to ER via Ambulatory with complaints of Allergic aj3 Reaction, Rash. 23:49 The patient presents with rash, that is diffuse, dark in color. Associated signs and aj3 symptoms: Pertinent positives: itching. Possible causes: antibiotics, Bactrim, doxycycline, Unsure which medication caused reaction. 09/17 00:51 Patient noted that he started with a rash the day after starting the doxycycline and aj3 Bactrim. He does not know which medication caused the reaction. He is also concerned that his right leg is becoming more swollen and the wound is getting worse since he has not been able to take antibiotics. Historical: - Allergies: 09/16 22:46 PENICILLINS; ld1 - PMHx: 22:46 HIV; syphilis; ld1 - PSHx: 22:46 wound, left ankle area; ld1 - Immunization history:: Adult Immunizations up to date, Client reports having NOT received the Covid vaccine. - Social history:: Smoking status: Patient denies any tobacco usage or history of. Patient/guardian denies using alcohol. ROS: 09/17 00:51 Constitutional: Negative for fever, chills, and weight loss, Cardiovascular: Negative aj3 for chest pain, palpitations, and edema, Respiratory: Negative for shortness of breath, cough, wheezing, and pleuritic chest pain, Abdomen/GI: Negative for abdominal pain, nausea, vomiting, diarrhea, and constipation, Neuro: Negative for syncope, headache, weakness, numbness, tingling, and seizure. MS/extremity: Positive for pain, swelling, R lower leg. Skin: Positive for rash, ulceration. Exam: 00:51 Constitutional: This is a well developed, well nourished patient who is awake, alert, aj3 and in no acute distress. Head/Face: Normocephalic, atraumatic. Cardiovascular: Regular rate and rhythm with a normal S1 and S2. No gallops, murmurs, or rubs. Normal PMI, no JVD. No pulse deficits. Respiratory: Lungs have equal breath sounds bilaterally, clear to auscultation and percussion. No rales, rhonchi or wheezes noted. No increased work of breathing, no retractions or nasal flaring. Abdomen/GI: Soft, non-tender, with normal bowel sounds. No distension or tympany. No guarding or rebound. No evidence of tenderness throughout. Neuro: Awake and alert, GCS 15, oriented to person, place, time, and situation. Cranial nerves II-XII grossly intact. Motor strength 5/5 in all extremities. Sensory grossly intact. Cerebellar exam normal. Normal gait. 00:51 Musculoskeletal/extremity: Extremities: grossly normal except: noted in the right leg: swelling, tenderness, open wound. 00:51 Skin: cellulitis, lesion(s), noted, and can be described as erythematous, ulcerated. Vital Signs: 09/16 22:45 BP 143 / 96; Pulse 81; Resp 18; Temp 98.3(TE); Pulse Ox 100% on R/A; Weight 70.31 kg; ld1 Height 6 ft. 0 in. (182.88 cm); Pain 8/10; 22:45 Body Mass Index 21.02 (70.31 kg, 182.88 cm) ld1 MDM: 22:59 Patient medically screened. aj3 09/17 00:51 Data reviewed: vital signs, nurses notes, lab test result(s), radiologic studies, aj3 ultrasound. Counseling: I had a detailed discussion with the patient and/or guardian regarding: the historical points, exam findings, and any diagnostic results supporting the discharge/admit diagnosis, lab results, the need for outpatient follow up. ED course: ED work-up is reassuring for no acute worsening of cellulitis/wound of his right lower extremity. DVT studies were negative. We will switch to clindamycin patient to follow-up with PCP and specialist who previously did surgery to his leg. Discharge instructions, medications prescribed and ER return precautions discussed patient verbalized understanding. 09/16 22:58 Order name: CBC with Diff; Complete Time: 23:53 aj3 09/16 22:58 Order name: BMP; Complete Time: 00:02 aj3 09/16 22:58 Order name: US Extremity Venous Unilateral Ltd aj3 Administered Medications: 09/16 23:50 Drug: Benadryl (diphenhydrAMINE) 25 mg Route: PO; ll3 09/17 00:50 Follow up: Response: No adverse reaction; Marked relief of symptoms 3 09/16 23:50 Drug: predniSONE 40 mg Route: PO; ll3 09/17 00:50 Follow up: Response: No adverse reaction; Marked relief of symptoms 3 00:50 Drug: Clindamycin 300 mg Route: PO; 3 Disposition: 02:09 Co-signature as Attending Physician, Hugh Leyva MD. [facility] Disposition Summary: 09/17/21 00:46 Discharge Ordered Location: Home aj3 Problem: new aj3 Symptoms: have improved aj3 Condition: Stable aj3 Diagnosis - Allergic reaction to medication aj3 - Rash and other nonspecific skin eruption aj3 - Cellulitis of right lower limb aj3 Followup: aj3 - With: Private Physician - When: 1 - 2 days - Reason: Recheck today's complaints, Re-evaluation by your physician Discharge Instructions: - Discharge Summary Sheet aj3 - Drug Rash aj3 Forms: - Medication Reconciliation Form aj3 - Thank You Letter aj3 - Antibiotic Education aj3 - Prescription Opioid Use aj3 Prescriptions: - Clindamycin HCl 300 mg Oral Capsule - take 1 capsule by ORAL route every 6 hours for 10 days; 40 capsule; Refills: 0, aj3 Product Selection Permitted - Zyrtec 10 mg Oral Tablet - take 1 tablet by ORAL route once daily for 7 days; 14 tablet; Refills: 0, aj3 Product Selection Permitted Signatures: Dispatcher [employer] Hugh Lin MD MD 7 Sonia Walker RN RN ld1 Jay Jay Matute RN RN ll3 Bethany Valdez NP DESKTOP ENGINEER 3
[2021-09-17 02:16] VITALS: BP 143/96; TEMP 98.3; O2SAT 100
--- NOTE | 2021-09-17 14:28 | RAD REPORT ---
EXAM DESCRIPTION: US - Extremity Venous Uni Ltd - 09/17/2021 3:02 am CLINICAL HISTORY: 36 years, Male, SWELLING Extremity Venous Uni Ltd COMPARISON: None. FINDINGS: Grayscale imaging as well as spectral and color Doppler interrogation of the deep venous s ystem of right lower extremity was performed with visualization from the common femoral veins to the popliteal veins and posterior tibial vein. There is normal compressibility, augmentation and flow wit h no visualized thrombus. No focal fluid collection is identified. IMPRESSION: No right lower extremity DVT. Electronically signed by: Juliano Kidd DO 09/17/2021 1:22 AM CDT Due to temporary technical issues with the PACS/Fluency reporting system, reports are being signed by the in house radiologists without review as a courtesy to insure prompt reporting. The interpreting radiologist is fully responsible for the content of the report.
== END 2021-09-17 01:46 | disposition home or self-care (01) ==
LOC: ER 22:18
DX: L03.115 Cellulitis of right lower limb (principal); Z88.8 Allergy status to other drugs, medicaments and biological substances; Z21 Asymptomatic human immunodeficiency virus [HIV] infection status; Z88.0 Allergy status to penicillin
CPT/HCPCS: 36415; 80048; 85025; 93971; 99284; J7512